=== PATIENT | male | born 1965 | race Caucasian/White ===

== ENCOUNTER 2017-10-23 20:44 | Inpatient (IN) | payer OTHER ==
[~2017-10-23] VITALS: Ht 152.4 cm; Wt 42.8 kg
[2017-10-23] MEDS ORDERED: Acetaminophen 500mg (ES) tab ORAL ONE (21:15)
[2017-10-23] MEDS ORDERED: cefTRIAXone 1 GM in NS 55 ML IVPB ONE (21:15)
--- NOTE | 2017-10-23 21:20 | Emergency Room Report ---
History of Present Illness General Chief Complaint: Fever Source: Caregiver Present Illness HPI Patient is brought in by caregiver at [facility] Patient has underlying Down syndrome Machine Feller reports that she has had the patient for the past one week and does not know much about the patient He was found to have a fever today and was brought to the emergency room Upon arrival the patient is hypotensive tachypneic, febrile and appears mottled on his lower extremities Patient himself does not provide much history This does limit the history of present illness There was no reports of vomiting There was report of diarrhea 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 Allergies: Coded Allergies: No Known Allergies (Unverified , 10/23/17) Patient History Limited by: medical condition Past Medical History: see triage record Pertinent Family History: unable to obtain Reviewed Nursing Documentation: PMH: Agreed; PSxH: Agreed Nursing Documentation-PMH Past Medical History: No History, Except For Hx Neurological Problems: Yes Review of Systems All Other Systems: limited - Other than the ones mentioned in the history of present illness all others are reviewed however they do stay limited due to the patient's mental status Physical Exam Vital Signs Date Time Temp Pulse Resp B/P (MAP) Pulse Ox O2 Delivery O2 Flow Rate FiO2 10/23/17 21:10 101.5 142 16 75/44 92 Room Air 101.5 Sp02 EP Interpretation: reviewed, abnormal - 92% is borderline low interpretation on 2 L nasal cannula patient saturating at 96% which is normal, General Appearance: moderate distress - Appears tachypneic and mottled Head: other - Microcephalic Eyes: bilateral eye PERRL ENT: dry mucus membranes - Severely dry oral mucosa Neck: full range of motion, supple Respiratory: crackles - In both lower lobes and patient is also tachypnic Cardiovascular #1: tachycardia Gastrointestinal: non tender, soft Musculoskeletal: normal inspection Neurologic: responsive - Patient follows minimal commands at baseline mental status. Skin: other - Mottled appearance diffusely including lower extremity, poor skin turgor Lymphatic: no adenopathy Procedures Critical Care Time Critical Care Time 70 minutes for multiple re-evaluations initial critical presentation Presentation consistent with septic shock requiring multiple consultants. Concern and risks for multiorgan failure Not including any procedural time Medical Decision Making Diagnostic Impression: Primary Impression: Severe sepsis Additional Impression: Rhabdomyolysis ER Course Patient presentation with fever and low blood pressure is concerning and consistent with severe sepsis The blood pressure has responded to IV fluids therefore patient does not appear to be in persistent septic shock IV hydration and antibiotics are initiated We have been unable to obtain urine from the patient as Gonzalez catheter was not able to be advanced Patient has some haziness any chest x-ray on the right lower lobe Other differentials such as bowel pathology or entertained Patient's abdomen however remains very soft on palpation with good bowel sounds Patient is admitted to the hospital for continued care in critical condition Inpatient imaging of CT will also be obtained At this time there are no signs of any hydronephrosis Patient had questionable mild colitis, there is some limitation as he were not able to provide IV contrast secondary to elevated creatinine has significant dehydration Labs Test 10/23/17 21:15 10/24/17 00:05 White Blood Count 9.6 K/UL (4.8-10.8) Red Blood Count 4.34 M/UL (4.70-6.10) Hemoglobin 14.1 G/DL (14.2-18.0) Hematocrit 41.0 % (42.0-52.0) Mean Corpuscular Volume 94 FL (80-99) Mean Corpuscular Hemoglobin 32.5 PG (27.0-31.0) Mean Corpuscular Hemoglobin Concent 34.4 G/DL (32.0-36.0) Red Cell Distribution Width 12.3 % (11.6-14.8) Platelet Count 131 K/UL (150-450) Mean Platelet Volume 9.4 FL (6.5-10.1) Neutrophils (%) (Auto) % (45.0-75.0) Lymphocytes (%) (Auto) % (20.0-45.0) Monocytes (%) (Auto) % (1.0-10.0) Eosinophils (%) (Auto) % (0.0-3.0) Basophils (%) (Auto) % (0.0-2.0) Differential Total Cells Counted 100 Neutrophils % (Manual) 78 % (45-75) Lymphocytes % (Manual) 11 % (20-45) Monocytes % (Manual) 6 % (1-10) Eosinophils % (Manual) 0 % (0-3) Basophils % (Manual) 0 % (0-2) Band Neutrophils 5 % (0-8) Platelet Estimate Decreased Platelet Morphology Normal Red Blood Cell Morphology Normal Sodium Level 154 MMOL/L (136-145) Potassium Level 2.8 MMOL/L (3.5-5.1) Chloride Level 119 MMOL/L (98-107) Carbon Dioxide Level 24 MMOL/L (21-32) Anion Gap 11 mmol/L (5-15) Blood Urea Nitrogen 31 mg/dL (7-18) Creatinine 2.3 MG/DL (0.55-1.30) Estimat Glomerular Filtration Rate 30.1 mL/min (>60) Glucose Level 171 MG/DL (74-106) Lactic Acid Level 2.50 mmol/L (0.4-2.0) 1.20 mmol/L (0.66-2.22) Calcium Level 8.7 MG/DL (8.5-10.1) Total Bilirubin 0.4 MG/DL (0.2-1.0) Aspartate Amino Transf (AST/SGOT) 375 U/L (15-37) Alanine Aminotransferase (ALT/SGPT) 238 U/L (12-78) Alkaline Phosphatase 84 U/L (46-116) Total Creatine Kinase > 26384 U/L (26-308) Creatine Kinase MB 30.1 NG/ML (0.0-3.6) Creatine Kinase MB Relative Index 0.0 Troponin I 0.183 ng/mL (0.000-0.056) Total Protein 7.1 G/DL (6.4-8.2) Albumin 2.5 G/DL (3.4-5.0) Globulin 4.6 g/dL Albumin/Globulin Ratio 0.5 (1.0-2.7) Lipase 146 U/L (73-393) EKG Diagnostic Results Rate: tachycardiac Rhythm: other ST Segments: no acute changes Rhythm Strip Diag. Results EP Interpretation: yes Rate: 110 Rhythm: no PVC's, no ectopy, other - Sinus tach Chest X-Ray Diagnostic Results Chest X-Ray Diagnostic Results : Chest X-Ray Ordered: Yes # of Views/Limited/Complete: 1 View Indication: Chest Pain EP Interpretation: Yes Interpretation: no effusion, no pneumothorax, other - Some haziness in the right ower lobe Impression: Other - Possible aspiration Electronically Signed by: Erika Rodriguez, DO CT/MRI/US Diagnostic Results CT/MRI/US Diagnostic Results : Impression CT abdomen pelvisIMPRESSION: Findingswhich mayreflect under distention versus developing colitis. Nonspecific bowel gas pattern with probable ileus. Absent and IVcontrast aswell as paucityof intra-abdominal fat limits evaluation. Pneumobiliawhich mayreflect prior instrumentation or surgery. Recommend clinical correlation Moderatelydistended bladder with wall thickening. Cystitis difficult to exclude. Complex cyst in the left kidney Tinyright pleural effusion and bibasilar airspace disease. Last Vital Signs Date Time Temp Pulse Resp B/P (MAP) Pulse Ox O2 Delivery O2 Flow Rate FiO2 10/23/17 21:10 101.5 142 16 75/44 92 Room Air 101.5 Status: improved Disposition: ADMITTED INPATIENT Condition: Critical Erika Rodriguez DO Oct 23, 2017 21:20
[2017-10-23 21:30] VITALS: BP 92/46
[2017-10-23 21:45] LABS: HEMOGLOBIN 14.1 G/DL (14.2-18.0); MEAN CORPUSCULAR VOLUME 94 FL (80-99); PLATELET COUNT 131 K/UL (150-450); RED BLOOD COUNT 4.34 M/UL (4.70-6.10); RED CELL DISTRIBUTION WIDTH 12.3 % (11.6-14.8); WHITE BLOOD COUNT 9.6 K/UL (4.8-10.8)
[2017-10-23] MEDS ORDERED: Acetaminophen 650 MG SUPP RECTAL ONE ×2 (21:52→22:00)
[2017-10-23 21:55] LABS: ANION GAP 11 mmol/L (5-15); BLOOD UREA NITROGEN 31 mg/dL (7-18); CALCIUM 8.7 MG/DL (8.5-10.1); CARBON DIOXIDE 24 MMOL/L (21-32); CHLORIDE 119 MMOL/L (98-107); CREATININE 2.3 MG/DL (0.55-1.30); POTASSIUM 2.8 MMOL/L (3.5-5.1); SODIUM 154 MMOL/L (136-145)
[2017-10-23 22:07] LABS: ALANINE AMINOTRANSFERASE 238 U/L (12-78); ALBUMIN 2.5 G/DL (3.4-5.0); ALBUMIN/GLOBULIN RATIO 0.5 (1.0-2.7); ALKALINE PHOSPHATASE 84 U/L (46-116); ASPARTATE AMINO TRANSFERASE 375 U/L (15-37); BILIRUBIN,TOTAL 0.4 MG/DL (0.2-1.0); CKMB 30.1 NG/ML (0.0-3.6); CREATINE KINASE > 10000 U/L (26-308)
[2017-10-23 22:30] VITALS: BP 96/42
[2017-10-23] MEDS ORDERED: COLACE100 MG ORAL (22:51)
[2017-10-23] MEDS ORDERED: ZOCOR20 M1 ORAL (22:51)
[2017-10-23] MEDS ORDERED: VITAMIN D1000 UNI1 ORAL (22:51)
[2017-10-23 23:11] VITALS: BP 85/51
[2017-10-24] VITALS (24 sets, daily range): BP systolic 73–97; BP diastolic 39–62
[2017-10-24] MEDS ORDERED: Docusate 100mg cap ORAL PRN (02:30)
[2017-10-24] MEDS ORDERED: Vancomycin 750mg/NS 250ml IVPB SCH (04:00)
[2017-10-24] MEDS ORDERED: Cefepime 1gm vial ONE (04:27)
[2017-10-24] MEDS ORDERED: Cefepime 500mg in D5W 55ml IVPB SCH (05:00)
[2017-10-24 06:12] LABS: HEMATOCRIT 36.8 % (42.0-52.0); HEMOGLOBIN 12.4 G/DL (14.2-18.0); MEAN CORPUSCULAR VOLUME 99 FL (80-99); PLATELET COUNT 92 K/UL (150-450); RED BLOOD COUNT 3.72 M/UL (4.70-6.10); RED CELL DISTRIBUTION WIDTH 12.8 % (11.6-14.8); WHITE BLOOD COUNT 15.6 K/UL (4.8-10.8)
[2017-10-24 06:36] LABS: ALANINE AMINOTRANSFERASE 200 U/L (12-78); ALBUMIN 1.7 G/DL (3.4-5.0); ALBUMIN/GLOBULIN RATIO 0.5 (1.0-2.7); ALKALINE PHOSPHATASE 57 U/L (46-116); ANION GAP 12 mmol/L (5-15); ASPARTATE AMINO TRANSFERASE 311 U/L (15-37); BILIRUBIN,TOTAL 0.3 MG/DL (0.2-1.0); BLOOD UREA NITROGEN 28 mg/dL (7-18); CALCIUM 6.7 MG/DL (8.5-10.1); CARBON DIOXIDE 21 MMOL/L (21-32); CHLORIDE 123 MMOL/L (98-107); POTASSIUM 3.6 MMOL/L (3.5-5.1); SODIUM 156 MMOL/L (136-145)
[2017-10-24] MEDS ORDERED: Sodium Chloride 500ML 1,000 ML IV ONE (08:30)
[2017-10-24] MEDS ORDERED: Cefepime HCl 1 GM in D5W 55 ML IVPB SCH (09:00)
[2017-10-24] MEDS ORDERED: Heparin 5000 units/ml inj SUBQ SCH (09:00)
[2017-10-24] MEDS: Vitamin D 1000 IU Tab ORAL SCH (09:00)
--- NOTE | 2017-10-24 11:41 | Diagnostic Imaging Report ---
Indication: Chest pain Comparison: None A single view chest radiograph was obtained. Findings: Reticular markings are mildly prominent. The heart is mildly enlarged. Bones are osteopenic. IMPRESSION: Interstitial edema may be present. Correlate clinically
--- NOTE | 2017-10-24 18:17 | Consultation ---
DATE OF CONSULTATION: 10/24/2017 CONSULTING PHYSICIAN: Aiden Sidhu M.D. REFERRING PHYSICIAN: Guero Noel M.D. REASON FOR CONSULTATION: 1. Hypernatremia. 2. Acute kidney injury. HISTORY OF PRESENT ILLNESS: The patient is a 52-year-old gentleman with Down syndrome, who was transferred by the caregiver from the [facility] for further evaluation and management of hypotension, increased heart rate, febrile, and not breathing well. Noted to have a creatinine of 2.3, decreased urinary output, and blood pressure remains in the low systolic 80s. CT of the abdomen and pelvis were conducted. Results are pending, however, noted to have a distended bladder with no urinary output and was having difficulty passing Gonzalez catheter. PAST MEDICAL HISTORY: 1. Down syndrome. 2. Hyperlipidemia. 3. Constipation. 4. Vitamin D deficiency. PAST SURGICAL HISTORY: Unknown. ALLERGIES: No known drug allergies. FAMILY HISTORY: Noncontributory. REVIEW OF SYSTEMS: Cannot obtain as the patient is currently on noninvasive positive pressure ventilation. PHYSICAL EXAMINATION: VITAL SIGNS: Blood pressure 83/60, respiratory rate 26, pulse 114, temperature 99.9, and 100% on BiPAP FiO2 of 40%. GENERAL: The patient is awake, agitated, not otherwise in distress. HEENT: Extraocular muscles intact. No lymphadenopathy. Oropharyngeal mucosa clear and dry. CARDIOVASCULAR: S1 and S2. No rubs or gallops. PULMONARY: Mild upper rhonchi. Fair air movement in all lung schaefer. ABDOMEN: Nondistended and nontender. EXTREMITY: No edema noted. LABORATORY DATA: Labs dated 10/24/2017, sodium 156, potassium 3.6, creatinine 2, BUN 28, and bicarb 21. AST and ALT are 311 and 200 respectively. Albumin 1.7. Hemoglobin 12.4, white cell count 15.6, and platelet count 92,000. ASSESSMENT AND PLAN: 1. Hypernatremia secondary to approximately 4 to 5 liters of free water deficit. At this time, okay to continue with half-normal saline. After this, would recommend changing to hypotonic D5W. 2. Acute kidney injury. Secondary to multifactorial acute tubular necrosis from hypotension and urinary retention. We will consult Urology for Gonzalez catheter placement as unable to pass Gonzalez and urinary bladder noted to be distended. 3. Sepsis with hypotension. Continue broad-spectrum antibiotics. 4. Down syndrome. 5. Respiratory insufficiency. Continue BiPAP management per Dr. Noel. I would take this opportunity to thank Dr. Noel. Aiden Sidhu MD DR: ADA JOB#: [id number] CC:
--- NOTE | 2017-10-24 18:32 | History and Physical Report ---
DATE OF ADMISSION: 10/23/2017 REASON FOR ADMISSION: Sepsis, acute respiratory failure. HISTORY: This is a 52-year-old male brought in by caregiver. The patient is a board and care patient. The patient has Down syndrome. The patient was noted to be more altered and noted to have fever. The patient in the emergency room noted to be hypotensive and tachypneic, was noted to be acidotic, and now admitted to ICU. The patient is unable to give much in the way of history. Currently, blood pressures have been labile. PAST MEDICAL HISTORY: Notable for Down syndrome. Other medical problems are unclear. MEDICATIONS: Reviewed and are minimal. PHYSICAL EXAMINATION: GENERAL: An ill-appearing male with stunted growth. VITAL SIGNS: Reviewed. Heart rate 105. The patient is currently on BiPAP. Temperature 99.9, blood pressure 83/60. T-max is 104. HEENT: Negative. LUNGS: Fairly clear. CARDIAC: Tachycardic. ABDOMEN: Soft. No distention. EXTREMITIES: No cyanosis or clubbing. SKIN: Skin turgor is reduced. LABORATORY DATA: Reviewed. White count 15.6 with left shift. Chemistries noted. Sodium 156, BUN 28, creatinine 2. Albumin is only 1.7. Arterial blood gases, pH 7.25, pCO2 of 47, pO2 of 81. IMPRESSION: 1. Possible sepsis. 2. Acute on chronic encephalopathy. 3. Hypernatremia. 4. Acute renal failure. 5. Severe protein-calorie malnutrition. 6. Leukocytosis. 7. Anemia. 8. Down syndrome. RECOMMENDATIONS: Supportive care. IV hydration. monitor fluid. Renal and ID evaluation. Empiric antibiotics. DVT prophylaxis on hold with heparin due to noted thrombocytopenia. We will obtain venous ultrasound and place SCDs. Maintain in the ICU. We will follow clinically and monitor laboratories closely. Gueor Noel M.D. DR: Stefania JOB#: [id number] CC: DORA
--- NOTE | 2017-10-24 19:02 | Consultation ---
DATE OF CONSULTATION: 10/24/2017 INFECTIOUS DISEASES CONSULTATION CONSULTING PHYSICIAN: Viktoria Winkler M.D. REFERRING PHYSICIAN: Guero Noel M.D. REASON FOR CONSULTATION: Fever. HISTORY OF PRESENTING ILLNESS: This is a 52-year-old gentleman with history of Down syndrome, who was brought in because he had fevers. He is currently on a BiPAP, admitted to the ICU and an Infectious Diseases consultation has been obtained for antibiotics. PAST MEDICAL HISTORY: History of Down syndrome. SOCIAL HISTORY: Unknown. FAMILY HISTORY: Unknown. REVIEW OF SYSTEMS: Unable to obtain currently. MEDICATIONS: As an inpatient, the patient is on atorvastatin, vitamin D, cefepime, Docusate, IV vancomycin and Tylenol. ALLERGIES: No known drug allergies. PHYSICAL EXAMINATION: VITAL SIGNS: Temperature of 99.9 degrees, T-max of 103.3 degrees, pulse of 107, respiratory rate 23, blood pressure 83/60 and O2 saturation of 100%. HEENT: Pupils equally reactive to light and accommodation. Mouth appears clean without thrush. The patient is on BiPAP. NECK: Supple. No adenopathy. No JVD. CARDIOVASCULAR: Regular rate and rhythm. No murmurs. LUNGS: Clear to auscultation bilaterally. No crackles. No wheezes. ABDOMEN: Soft and nontender. No organomegaly. EXTREMITIES: No cyanosis, no clubbing, no edema. LABORATORY AND DIAGNOSTIC DATA: White count 15.6, hemoglobin 12.4, hematocrit 36.8, MCV 99 and platelet count of 92 with neutrophils of 84%. Sodium 156, potassium 3.6, chloride 123, bicarbonate 21, BUN 28, creatinine 2 down from 2.3, glucose 126 and calcium of 6.7. AST 311, ALT 200 and alkaline phosphatase 57. Total protein 5.4. Albumin 1.7. Lipase of 146. Chest x-ray showing interstitial edema. Blood cultures are pending. ASSESSMENT: 1. This is a 52-year-old gentleman with history of Down syndrome who comes in with fevers, would be concerned regarding a urinary tract infection or a pneumonia as a possibility. 2. Respiratory failure. 3. Elevated liver function tests. 4. Renal failure is improving. 5. Increased leukocytosis. PLAN: 1. Discontinue IV vancomycin for now. 2. Discontinue cefepime. 3. We will start the patient on Zosyn. 4. We will order urine cultures and sputum cultures. 5. We will follow up cultures and adjust antibiotics accordingly. I would like to thank, Dr. Noel, for this consultation. Viktoria Winkler M.D. DR: DAMION JOB#: [id number] CC: Guero Noel M.D.; Fax#: [phone]
--- NOTE | 2017-10-24 20:06 | Operative Note - PDOC ---
Operative Note Operative Note Date of Operation/Procedure: Oct 24, 2017 Pre-op Diagnosis: sepsis, hypotension, intensive care / critical care requiring pressors Procedure: left internal jugular central venous catheter insertion Post-op Diagnosis: same as pre-op Surgeon: arianne Anesthesia: local Specimen: none Complications: none Condition: unstable Fluids: n/a Estimated Blood Loss: minimal Drains: none Implant(s) used?: No Indications for Procedure 52 year old male currently in intensive care unit in critical condition who is septic with hypotension, tachycardia, fevers. Requires pressors and will need central venous access for meds, pressors, fluids. unfortunately patient unable to consent and cannot get in contact with conservator given time of day. emergent need for line for life saving measure. two physician consent obtained. procedure performed at bedside. Description of Procedure patient made comfortable at bedside in the intensive care unit. placed in supine position with Trendelenburg. sterile measures taken, left neck prepped and draped in standard surgical fashion. ultrasound used to identify left internal jugular vein. local anesthetic 1% lidocaine infiltrated in proposed skin entry site. under ultrasound guidance the left internal jugular vein was cannulated with first pass. guide wire was passed over needle and needle removed. small skin incision made around guide wire with #11 scalpel. dilator used to dilate. triple lumen central venous catheter placed over wire without resistance. wire removed and discarded. line sutured in two placed using provided silk suture. dressings applied. all three ports flushed and aspirated venous blood without difficulty. patient tolerated procedure well. stat cxr ordered for positioning. Mitchell Busby Oct 24, 2017 20:06
[2017-10-24] MEDS ORDERED: Lidocaine 1% MPF 10mg/ml 5ml INJ PRN (20:15)
[2017-10-24] MEDS ORDERED: Atorvastatin 20mg tab ORAL SCH (21:00)
[2017-10-24] MEDS ORDERED: Dyna-Hex 2% Top Sol 2oz TOPIC SCH (21:30)
[2017-10-25] VITALS (42 sets, daily range): BP systolic 87–118; BP diastolic 1–87
[2017-10-25 08:38] LABS: HEMATOCRIT 37.7 % (42.0-52.0); HEMOGLOBIN 12.5 G/DL (14.2-18.0); MEAN CORPUSCULAR VOLUME 98 FL (80-99); PLATELET COUNT 89 K/UL (150-450); RED BLOOD COUNT 3.85 M/UL (4.70-6.10); RED CELL DISTRIBUTION WIDTH 13.3 % (11.6-14.8); WHITE BLOOD COUNT 18.4 K/UL (4.8-10.8)
--- NOTE | 2017-10-25 08:46 | Nephrology Progress Note ---
Assessment/Plan Assessment/Plan 1. 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 DC Lipitor 3. Resp FL- vent 4. Urinary Retention- 1300 ml UOP with tate 5. Hypotension/Sepsis- Abx, Norepi and IVF's Subjective Date patient seen: Oct 25, 2017 Time patient seen: 08:37 ROS Limited/Unobtainable: Yes Allergies: Coded Allergies: No Known Allergies (Unverified , 10/23/17) All Systems: reviewed and negative except above Subjective Patient on BiPAP Objective Last 24 Hour Vital Signs Date Time Temp Pulse Resp B/P (MAP) Pulse Ox O2 Delivery O2 Flow Rate FiO2 10/25/17 08:00 Venturi Mask 15.0 10/25/17 07:00 104/59 10/25/17 07:00 96 21 107/57 (74) 99 10/25/17 06:30 98/63 10/25/17 06:00 98/63 10/25/17 06:00 94 21 107/61 (76) 99 10/25/17 05:10 85 23 100 Full Face 35 10/25/17 05:00 99/52 10/25/17 05:00 99 21 105/57 (73) 100 10/25/17 04:00 101/57 10/25/17 04:00 87 10/25/17 04:00 Venturi Mask 15.0 10/25/17 04:00 98.4 102 21 102/56 (71) 100 98.4 10/25/17 03:15 98 20 100 Full Face 40 10/25/17 03:00 103 21 99/56 (70) 100 10/25/17 02:30 99/55 10/25/17 02:00 111 26 100/53 (69) 100 10/25/17 02:00 102/54 10/25/17 01:00 100 24 95/58 (70) 100 10/25/17 01:00 105/53 10/25/17 00:42 108 24 99 Full Face 40 10/25/17 00:00 40 10/25/17 00:00 87 10/25/17 00:00 98.3 104 20 91/51 (64) 100 98.3 10/25/17 00:00 Venturi Mask 15.0 10/25/17 00:00 98/80 10/24/17 23:06 108 16 100 Full Face 40 10/24/17 23:00 102/66 10/24/17 23:00 91 18 86/47 (60) 100 10/24/17 22:00 96 27 97/54 (68) 97 10/24/17 22:00 97/54 10/24/17 21:40 103 20 99 Full Face 40 10/24/17 20:57 115 30 92/50 (64) 97 10/24/17 20:57 92/50 10/24/17 20:00 98.0 116 35 83/49 (60) 100 98.0 10/24/17 20:00 Venturi Mask 15.0 10/24/17 20:00 114 10/24/17 19:00 112 15 93/50 (64) 96 10/24/17 18:57 97 Nasal Cannula 3.0 32 10/24/17 18:57 Nasal Cannula 3.0 32 10/24/17 18:00 112 15 90/55 (67) 96 10/24/17 17:00 112 15 78/55 (63) 96 10/24/17 16:00 117 10/24/17 16:00 112 15 83/52 (62) 96 10/24/17 16:00 Venturi Mask 15.0 10/24/17 15:00 112 15 75/53 (60) 96 10/24/17 14:00 99.1 106 15 73/54 (60) 96 99.1 10/24/17 13:00 110 15 84/51 (62) 96 10/24/17 12:34 113 17 100 Full Face 40 10/24/17 12:00 107 15 78/48 (58) 96 10/24/17 12:00 104 10/24/17 12:00 Venturi Mask 15.0 10/24/17 11:00 107 15 85/55 (65) 96 10/24/17 10:55 107 23 100 Facial 40 10/24/17 10:00 107 15 85/55 (65) 96 10/24/17 09:00 107 15 89/57 (68) 96 10/24/17 09:00 114 23 100 Facial 40 Intake and Output 10/24/17 10/25/17 19:00 07:00 Intake Total 1650 ml 2143.75 ml Output Total 1300 ml 970 ml Balance 350 ml 1173.75 ml Intake Oral 50 ml IV Total 1600 ml 2143.75 ml Output Urine Total 1300 ml 970 ml Stool Total 0 ml Laboratory Tests 10/24/17 14:00: Arterial Blood pH 7.320L, Arterial Blood Partial Pressure CO2 36.7, Arterial Blood Partial Pressure O2 171.3H, Arterial Blood HCO3 18.8L, Arterial Blood Oxygen Saturation 98.7H, Arterial Blood Base Excess -6.5, Srinath Test Positive 10/25/17 05:40: Random Vancomycin Level 4.3 10/25/17 08:15: White Blood Count [Pending], Red Blood Count [Pending], Hemoglobin [Pending], Hematocrit [Pending], Mean Corpuscular Volume [Pending], Mean Corpuscular Hemoglobin [Pending], Mean Corpuscular Hemoglobin Concent [Pending], Red Cell Distribution Width [Pending], Platelet Count [Pending], Mean Platelet Volume [ Pending], Neutrophils (%) (Auto) [Pending], Lymphocytes (%) (Auto) [Pending], Monocytes (%) (Auto) [Pending], Eosinophils (%) (Auto) [Pending], Basophils (%) (Auto) [Pending], Sodium Level [Pending], Potassium Level [Pending], Chloride Level [Pending], Carbon Dioxide Level [Pending], Blood Urea Nitrogen [Pending], Creatinine [Pending], Estimat Glomerular Filtration Rate [Pending], Glucose Level [Pending], Calcium Level [Pending], Total Bilirubin [Pending], Aspartate Amino Transf (AST/SGOT) [Pending], Alanine Aminotransferase (ALT/SGPT) [Pending] , Alkaline Phosphatase [Pending], Total Protein [Pending], Albumin [Pending], Globulin [Pending] Height (Feet): 5 Height (Inches): 1.00 Weight (Pounds): 110 General Appearance: no apparent distress, alert EENT: PERRL/EOMI Neck: non-tender, normal alignment Cardiovascular: normal rate, regular rhythm Respiratory/Chest: chest wall non-tender, lungs clear Abdomen: normal bowel sounds, non tender, soft Edema: no edema noted Arm (L), no edema noted Arm (R), no edema noted Leg (L), no edema noted Leg (R), no edema noted Pedal (L), no edema noted Pedal (R), no edema noted Generalized Aiden Sidhu M.D. Oct 25, 2017 08:46
[2017-10-25] MEDS: Vitamin D 1000 IU Tab ORAL SCH (09:00)
[2017-10-25] MEDS ORDERED: Vancomycin 1gm/D5W 275ml IVPB ONE ×2 (09:00)
[2017-10-25 09:03] LABS: ALANINE AMINOTRANSFERASE 187 U/L (12-78); ALBUMIN 1.6 G/DL (3.4-5.0); ALBUMIN/GLOBULIN RATIO 0.5 (1.0-2.7); ALKALINE PHOSPHATASE 59 U/L (46-116); ANION GAP 6 mmol/L (5-15); ASPARTATE AMINO TRANSFERASE 263 U/L (15-37); BILIRUBIN,TOTAL 0.5 MG/DL (0.2-1.0); BLOOD UREA NITROGEN 25 mg/dL (7-18); CALCIUM 6.7 MG/DL (8.5-10.1); CARBON DIOXIDE 23 MMOL/L (21-32); CHLORIDE 116 MMOL/L (98-107); CREATININE 1.5 MG/DL (0.55-1.30); POTASSIUM 3.7 MMOL/L (3.5-5.1); SODIUM 145 MMOL/L (136-145)
--- NOTE | 2017-10-25 14:07 | General Progress Note ---
Assessment/Plan Assessment/Plan IMPRESSION: 1. Possible sepsis. 2. Acute on chronic encephalopathy. 3. Hypernatremia. 4. Acute renal failure. 5. Severe protein-calorie malnutrition. 6. Leukocytosis. 7. Anemia. 8. Down syndrome. 9. rhabdo PLAN iv hydration monitor renal function and CK taper pressors antibiotics check culture monitor ABG keep npo medications/laboratory data/nursing notes/ICU care reviewed in detail note reviewed and edited care discussed with RN and RT ICU time spent 40 minutes Subjective Allergies: Coded Allergies: No Known Allergies (Unverified , 10/23/17) Subjective better more alert on pressors central line needed due to hypotension Objective Last 24 Hour Vital Signs Date Time Temp Pulse Resp B/P (MAP) Pulse Ox O2 Delivery O2 Flow Rate FiO2 10/25/17 14:02 111/62 10/25/17 13:00 88 20 110/60 (77) 98 10/25/17 12:30 85 24 108/62 (77) 98 10/25/17 12:00 Venturi Mask 15.0 10/25/17 12:00 98.8 95 27 105/58 (74) 99 98.8 10/25/17 12:00 95 10/25/17 11:30 92 25 104/58 (73) 98 10/25/17 11:00 97 23 105/66 (79) 99 10/25/17 10:30 81 21 101/55 (70) 99 10/25/17 10:00 93 27 108/59 (75) 99 10/25/17 09:30 92 26 100/65 (77) 99 10/25/17 09:14 99 23 100 Full Face 35 10/25/17 09:00 96 27 104/58 (73) 99 10/25/17 08:30 96 23 104/54 (71) 100 10/25/17 08:00 88 10/25/17 08:00 Venturi Mask 15.0 10/25/17 08:00 98.6 98 24 105/60 (75) 99 98.6 10/25/17 07:54 Bi-pap 40 10/25/17 07:30 99 25 107/55 (72) 99 10/25/17 07:00 104/59 10/25/17 07:00 96 21 107/57 (74) 99 10/25/17 06:50 102 35 100 Full Face 35 10/25/17 06:49 100 Bi-pap 10/25/17 06:30 98/63 10/25/17 06:00 98/63 10/25/17 06:00 94 21 107/61 (76) 99 10/25/17 05:10 85 23 100 Full Face 35 10/25/17 05:00 99/52 10/25/17 05:00 99 21 105/57 (73) 100 10/25/17 04:00 101/57 10/25/17 04:00 87 10/25/17 04:00 Venturi Mask 15.0 10/25/17 04:00 98.4 102 21 102/56 (71) 100 98.4 10/25/17 03:15 98 20 100 Full Face 40 10/25/17 03:00 103 21 99/56 (70) 100 10/25/17 02:30 99/55 10/25/17 02:00 111 26 100/53 (69) 100 10/25/17 02:00 102/54 10/25/17 01:00 100 24 95/58 (70) 100 10/25/17 01:00 105/53 10/25/17 00:42 108 24 99 Full Face 40 10/25/17 00:00 40 10/25/17 00:00 87 10/25/17 00:00 98.3 104 20 91/51 (64) 100 98.3 10/25/17 00:00 Venturi Mask 15.0 10/25/17 00:00 98/80 10/24/17 23:06 108 16 100 Full Face 40 10/24/17 23:00 102/66 10/24/17 23:00 91 18 86/47 (60) 100 10/24/17 22:00 96 27 97/54 (68) 97 10/24/17 22:00 97/54 10/24/17 21:40 103 20 99 Full Face 40 10/24/17 20:57 115 30 92/50 (64) 97 10/24/17 20:57 92/50 10/24/17 20:00 98.0 116 35 83/49 (60) 100 98.0 10/24/17 20:00 Venturi Mask 15.0 10/24/17 20:00 114 10/24/17 19:00 112 15 93/50 (64) 96 10/24/17 18:57 97 Nasal Cannula 3.0 32 10/24/17 18:57 Nasal Cannula 3.0 32 10/24/17 18:00 112 15 90/55 (67) 96 10/24/17 17:00 112 15 78/55 (63) 96 10/24/17 16:00 117 10/24/17 16:00 112 15 83/52 (62) 96 10/24/17 16:00 Venturi Mask 15.0 10/24/17 15:00 112 15 75/53 (60) 96 Intake and Output 10/24/17 10/25/17 19:00 07:00 Intake Total 1650 ml 2143.75 ml Output Total 1300 ml 970 ml Balance 350 ml 1173.75 ml Intake Oral 50 ml IV Total 1600 ml 2143.75 ml Output Urine Total 1300 ml 970 ml Stool Total 0 ml Laboratory Tests 10/25/17 05:40: Random Vancomycin Level 4.3 10/25/17 08:15: White Blood Count 18.4H, Red Blood Count 3.85L, Hemoglobin 12.5L, Hematocrit 37.7L, Mean Corpuscular Volume 98, Mean Corpuscular Hemoglobin 32.4H, Mean Corpuscular Hemoglobin Concent 33.1, Red Cell Distribution Width 13.3, Platelet Count 89L, Mean Platelet Volume 9.8, Neutrophils (%) (Auto) , Lymphocytes (%) ( Auto) , Monocytes (%) (Auto) , Eosinophils (%) (Auto) , Basophils (%) (Auto) , Differential Total Cells Counted 100, Neutrophils % (Manual) 86H, Lymphocytes % (Manual) 7L, Monocytes % (Manual) 3, Eosinophils % (Manual) 0, Basophils % ( Manual) 0, Band Neutrophils 4, Platelet Estimate DecreasedL, Platelet Morphology Normal, Macrocytosis 1+, Sodium Level 145, Potassium Level 3.7, Chloride Level 116H, Carbon Dioxide Level 23, Anion Gap 6, Blood Urea Nitrogen 25H, Creatinine 1.5H, Estimat Glomerular Filtration Rate 49.3, Glucose Level 162H, Calcium Level 6.7L, Total Bilirubin 0.5, Aspartate Amino Transf (AST/SGOT ) 263H, Alanine Aminotransferase (ALT/SGPT) 187H, Alkaline Phosphatase 59, Total Protein 5.1L, Albumin 1.6L, Globulin 3.5, Albumin/Globulin Ratio 0.5L 10/25/17 10:20: Arterial Blood pH 7.340L, Arterial Blood Partial Pressure CO2 38.9, Arterial Blood Partial Pressure O2 146.4H, Arterial Blood HCO3 20.8L, Arterial Blood Oxygen Saturation 98.5H, Arterial Blood Base Excess -4.4, Srinath Test Positive Height (Feet): 5 Height (Inches): 1.00 Weight (Pounds): 110 Objective WDWN NAD and more alert clear breath sounds bilaterally without rhonchi or wheeze [id number] without MRG NABS nontender no HSM no CCE short stature very weak Guero Noel MD Oct 25, 2017 14:07
--- NOTE | 2017-10-25 14:27 | Infectious Diseases Prog Note ---
Assessment/Plan Assessment/Plan A; Sepsis/Septic shock Gram negative sepsis Acute renal failure Rhabdomyolysis Acidosis Elevated transaminase O; Continue Zosyn Abdominal US Subjective ROS Limited/Unobtainable: Yes Neurologic: Reports: confusion, other - on restraint Allergies: Coded Allergies: No Known Allergies (Unverified , 10/23/17) Objective Vital Signs Last 24 Hour Vital Signs Date Time Temp Pulse Resp B/P (MAP) Pulse Ox O2 Delivery O2 Flow Rate FiO2 10/25/17 14:02 111/62 10/25/17 13:00 88 20 110/60 (77) 98 10/25/17 12:30 85 24 108/62 (77) 98 10/25/17 12:00 Venturi Mask 15.0 10/25/17 12:00 98.8 95 27 105/58 (74) 99 98.8 10/25/17 12:00 95 10/25/17 11:30 92 25 104/58 (73) 98 10/25/17 11:00 97 23 105/66 (79) 99 10/25/17 10:30 81 21 101/55 (70) 99 10/25/17 10:00 93 27 108/59 (75) 99 10/25/17 09:30 92 26 100/65 (77) 99 10/25/17 09:14 99 23 100 Full Face 35 10/25/17 09:00 96 27 104/58 (73) 99 10/25/17 08:30 96 23 104/54 (71) 100 10/25/17 08:00 88 10/25/17 08:00 Venturi Mask 15.0 10/25/17 08:00 98.6 98 24 105/60 (75) 99 98.6 10/25/17 07:54 Bi-pap 40 10/25/17 07:30 99 25 107/55 (72) 99 10/25/17 07:00 104/59 10/25/17 07:00 96 21 107/57 (74) 99 10/25/17 06:50 102 35 100 Full Face 35 10/25/17 06:49 100 Bi-pap 10/25/17 06:30 98/63 10/25/17 06:00 98/63 10/25/17 06:00 94 21 107/61 (76) 99 10/25/17 05:10 85 23 100 Full Face 35 10/25/17 05:00 99/52 10/25/17 05:00 99 21 105/57 (73) 100 10/25/17 04:00 101/57 10/25/17 04:00 87 10/25/17 04:00 Venturi Mask 15.0 10/25/17 04:00 98.4 102 21 102/56 (71) 100 98.4 10/25/17 03:15 98 20 100 Full Face 40 10/25/17 03:00 103 21 99/56 (70) 100 10/25/17 02:30 99/55 10/25/17 02:00 111 26 100/53 (69) 100 10/25/17 02:00 102/54 10/25/17 01:00 100 24 95/58 (70) 100 10/25/17 01:00 105/53 10/25/17 00:42 108 24 99 Full Face 40 10/25/17 00:00 40 10/25/17 00:00 87 10/25/17 00:00 98.3 104 20 91/51 (64) 100 98.3 10/25/17 00:00 Venturi Mask 15.0 10/25/17 00:00 98/80 10/24/17 23:06 108 16 100 Full Face 40 10/24/17 23:00 102/66 10/24/17 23:00 91 18 86/47 (60) 100 10/24/17 22:00 96 27 97/54 (68) 97 10/24/17 22:00 97/54 10/24/17 21:40 103 20 99 Full Face 40 10/24/17 20:57 115 30 92/50 (64) 97 10/24/17 20:57 92/50 10/24/17 20:00 98.0 116 35 83/49 (60) 100 98.0 10/24/17 20:00 Venturi Mask 15.0 10/24/17 20:00 114 10/24/17 19:00 112 15 93/50 (64) 96 10/24/17 18:57 97 Nasal Cannula 3.0 32 10/24/17 18:57 Nasal Cannula 3.0 32 10/24/17 18:00 112 15 90/55 (67) 96 10/24/17 17:00 112 15 78/55 (63) 96 10/24/17 16:00 117 10/24/17 16:00 112 15 83/52 (62) 96 10/24/17 16:00 Venturi Mask 15.0 10/24/17 15:00 112 15 75/53 (60) 96 Height (Feet): 5 Height (Inches): 1.00 Weight (Pounds): 110 HEENT: other - dry mouth & lips Respiratory/Chest: lungs clear, other - O2 by nasal cannula Cardiovascular: normal rate, other - RIJ central line Abdomen: soft, non tender Genitourinary: other - Gonzalez catheter Extremities: no edema Skin: no rash Neurologic/Psychiatric: aphasia Microbiology Date/Time Source Procedure Growth Status 10/23/17 21:30 Blood Blood Culture - Preliminary Resulted 10/23/17 21:15 Blood Blood Culture - Preliminary Resulted 10/24/17 17:12 Urine,Clean Catch Urine Culture - Preliminary NO GROWTH Resulted 10/23/17 22:20 Rectum Received Laboratory Tests Test 10/25/17 05:40 10/25/17 08:15 10/25/17 10:20 Random Vancomycin Level 4.3 ug/mL White Blood Count 18.4 K/UL (4.8-10.8) H Red Blood Count 3.85 M/UL (4.70-6.10) L Hemoglobin 12.5 G/DL (14.2-18.0) L Hematocrit 37.7 % (42.0-52.0) L Mean Corpuscular Volume 98 FL (80-99) Mean Corpuscular Hemoglobin 32.4 PG (27.0-31.0) H Mean Corpuscular Hemoglobin Concent 33.1 G/DL (32.0-36.0) Red Cell Distribution Width 13.3 % (11.6-14.8) Platelet Count 89 K/UL (150-450) L Mean Platelet Volume 9.8 FL (6.5-10.1) Neutrophils (%) (Auto) % (45.0-75.0) Lymphocytes (%) (Auto) % (20.0-45.0) Monocytes (%) (Auto) % (1.0-10.0) Eosinophils (%) (Auto) % (0.0-3.0) Basophils (%) (Auto) % (0.0-2.0) Differential Total Cells Counted 100 Neutrophils % (Manual) 86 % (45-75) H Lymphocytes % (Manual) 7 % (20-45) L Monocytes % (Manual) 3 % (1-10) Eosinophils % (Manual) 0 % (0-3) Basophils % (Manual) 0 % (0-2) Band Neutrophils 4 % (0-8) Platelet Estimate Decreased L Platelet Morphology Normal Macrocytosis 1+ Sodium Level 145 MMOL/L (136-145) Potassium Level 3.7 MMOL/L (3.5-5.1) Chloride Level 116 MMOL/L (98-107) H Carbon Dioxide Level 23 MMOL/L (21-32) Anion Gap 6 mmol/L (5-15) Blood Urea Nitrogen 25 mg/dL (7-18) H Creatinine 1.5 MG/DL (0.55-1.30) H Estimat Glomerular Filtration Rate 49.3 mL/min (>60) Glucose Level 162 MG/DL (74-106) H Calcium Level 6.7 MG/DL (8.5-10.1) L Total Bilirubin 0.5 MG/DL (0.2-1.0) Aspartate Amino Transf (AST/SGOT) 263 U/L (15-37) H Alanine Aminotransferase (ALT/SGPT) 187 U/L (12-78) H Alkaline Phosphatase 59 U/L (46-116) Total Protein 5.1 G/DL (6.4-8.2) L Albumin 1.6 G/DL (3.4-5.0) L Globulin 3.5 g/dL Albumin/Globulin Ratio 0.5 (1.0-2.7) L Arterial Blood pH 7.340 (7.350-7.450) Arterial Blood Partial Pressure CO2 38.9 mmHg (35.0-45.0) Arterial Blood Partial Pressure O2 146.4 mmHg (75.0-100.0) H Arterial Blood HCO3 20.8 mmol/L (22.0-26.0) L Arterial Blood Oxygen Saturation 98.5 % (92.0-98.0) H Arterial Blood Base Excess -4.4 Srinath Test Positive Current Medications Medications (Trade) Dose Ordered Sig/Merlene Route PRN Reason Start Time Stop Time Status Last Admin Dose Admin Acetaminophen (Tylenol) 650 mg Q4H PRN ORAL Mild Pain/Temp > 100.5 10/24/17 02:15 11/23/17 02:14 Chlorhexidine Gluconate (Chandni-Hex 2%) 1 applic DAILY@2000 TOPIC 10/25/17 20:00 11/24/17 19:59 Docusate Sodium (Colace) 100 mg DAILY PRN ORAL Constipation 10/24/17 02:30 11/23/17 02:29 Lidocaine (Xylocaine 1% MPF 5ml) 10 ml ONCE PRN INJ for central line placement 10/24/17 20:15 10/26/17 20:14 Norepinephrine Bitartrate 4 mg/ Dextrose 250 ml @ 56.25 mls/ hr Q24H IV 10/25/17 02:30 11/24/17 02:14 10/25/17 14:02 Piperacillin Sod/ Tazobactam Sod 3.375 gm/Dextrose 100 ml @ 25 mls/hr EVERY 8 HOURS IV 10/24/17 15:00 10/29/17 14:59 10/25/17 05:31 Sodium Chloride 1,000 ml @ 150 mls/hr Q6H40M IV 10/25/17 08:45 11/24/17 08:44 10/25/17 08:54 Vitamin D (Vitamin D) 1,000 intlu DAILY ORAL 10/24/17 09:00 11/23/17 08:59 Ryan Fritz MD Oct 25, 2017 14:27
[2017-10-25] MEDS ORDERED: NS 275ml ONE (14:29)
[2017-10-25] MEDS ORDERED: Tubing IV Secondary IV ONE (14:29)
[2017-10-25] MEDS ORDERED: 1/2 NS 1000ml IV ONE (14:29)
--- NOTE | 2017-10-25 15:24 | Diagnostic Imaging Report ---
Indication: Central line placement consolidation. Technique: XRAY Chest 1v Comparison: 10/23/2017 Findings: Heart size and mediastinal contours are stable. There is interval placement of a left transjugular approach central venous catheter. Tip projects in the expected region of the confluence of the left innominate vein and superior vena cava. No pneumothorax. There is increased haziness the pulmonary vascularity, reflective of a degree of mild interstitial edema/fluid overload. Osseous structures stable IMPRESSION: Left transjugular approach central venous catheter with the tip the region of the confluence of the left innominate vein and superior vena cava. No pneumothorax. Interval increased haziness of the pulmonary vascularity signaling mild interstitial edema/fluid overload.
--- NOTE | 2017-10-25 18:30 | Operative Note - PDOC ---
Operative Note Operative Note Pre-op Diagnosis: sepsis, hypotension, intensive care / critical care requiring pressors Procedure: right subclavian central venous catheter insertion Post-op Diagnosis: same as pre-op Surgeon: arianne Anesthesia: local Specimen: none Complications: none Condition: unstable Fluids: n/a Estimated Blood Loss: minimal Drains: none Implant(s) used?: No Indications for Procedure 52 year old male currently in intensive care unit in critical condition who is septic with hypotension, tachycardia, fevers. Requires pressors and will need central venous access for meds, pressors, fluids. unfortunately patient unable to consent and cannot get in contact with conservator given time of day. emergent need for line for life saving measure. two physician consent obtained. procedure performed at bedside. patient had line placed in left IJ yesterday and has been on pressors since. he pulled out catheter today and requires emergency insertion of new catheter. Description of Procedure patient made comfortable at bedside in the intensive care unit. placed in supine position with Trendelenburg. sterile measures taken, right chest wall prepped and draped in standard surgical fashion. local anesthetic 1% lidocaine infiltrated in proposed skin entry site. the right subclavian vein was cannulated with second pass. guide wire was passed over needle and needle removed. small skin incision made around guide wire with #11 scalpel. dilator used to dilate. triple lumen central venous catheter placed over wire without resistance. wire removed and discarded. line sutured in two placed using provided silk suture. dressings applied. all three ports flushed and aspirated venous blood without difficulty. patient tolerated procedure well. stat cxr ordered for positioning. Mitchell Busby Oct 25, 2017 18:30
[2017-10-25] MEDS: Dyna-Hex 2% Top Sol 2oz TOPIC SCH (19:47)
--- NOTE | 2017-10-25 19:59 | Diagnostic Imaging Report ---
EXAM: XR Chest, 1 View CLINICAL HISTORY: SOB TECHNIQUE: Frontal view of the chest. COMPARISON: 10/24/17 FINDINGS: Lungs: Increased hazy opacities in the lungs suggestive of edema and/or infiltrate, right greater than left. This overall appears worse compared to the prior exam. Some increased interstitial markings are suspected in the lungs which may be related to some interstitial edema. Pleural space: Mild blunting of the left costophrenic angle suggestive of a small left-sided pleural effusion versus pleural thickening. No pneumothorax. Heart: There is some prominence of the cardiac silhouette which may at least partly be related to the portable technique. Mediastinum: Unremarkable. Bones/joints: Unremarkable. IMPRESSION: 1. Increased hazy opacities in the lungs suggestive of edema and/or infiltrate, right greater than left. This overall appears worse compared to the prior exam. 2. There is some prominence of the cardiac silhouette which may at least partly be related to the portable technique. 3. Mild blunting of the left costophrenic angle suggestive of a small left-sided pleural effusion versus pleural thickening. 4. Some increased interstitial markings are suspected in the lungs which may be related to some interstitial edema.
[2017-10-26] VITALS (50 sets, daily range): BP systolic 84–121; BP diastolic 33–92
[2017-10-26 04:40] LABS: HEMATOCRIT 38.7 % (42.0-52.0); HEMOGLOBIN 13.2 G/DL (14.2-18.0); MEAN CORPUSCULAR VOLUME 98 FL (80-99); PLATELET COUNT 86 K/UL (150-450); RED BLOOD COUNT 3.94 M/UL (4.70-6.10); RED CELL DISTRIBUTION WIDTH 13.1 % (11.6-14.8)
[2017-10-26 05:10] LABS: WHITE BLOOD COUNT 25.5 K/UL (4.8-10.8)
[2017-10-26 05:14] LABS: BLOOD UREA NITROGEN 16 mg/dL (7-18); CALCIUM 7.2 MG/DL (8.5-10.1); CHLORIDE 116 MMOL/L (98-107); CREATINE KINASE 5556 U/L (26-308); CREATININE 1.2 MG/DL (0.55-1.30); POTASSIUM 3.9 MMOL/L (3.5-5.1); SODIUM 147 MMOL/L (136-145)
[2017-10-26 05:26] LABS: CARBON DIOXIDE 26 MMOL/L (21-32)
--- NOTE | 2017-10-26 07:37 | Nephrology Progress Note ---
Assessment/Plan Assessment/Plan 1. 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 Resp FL- resolved 4. Urinary Retention- tate 5. Hypotension/Sepsis- Abx, Norepi and IVF's Subjective Date patient seen: Oct 26, 2017 Time patient seen: 07:35 ROS Limited/Unobtainable: Yes Allergies: Coded Allergies: No Known Allergies (Unverified , 10/23/17) All Systems: reviewed and negative except above Subjective Patient off BiPAP and mildly agitated Objective Last 24 Hour Vital Signs Date Time Temp Pulse Resp B/P (MAP) Pulse Ox O2 Delivery O2 Flow Rate FiO2 10/26/17 07:00 100 32 116/54 (74) 95 10/26/17 06:30 101 32 113/60 (77) 95 10/26/17 06:00 99 32 111/62 (78) 93 10/26/17 06:00 111/62 10/26/17 05:30 99 32 102/60 (74) 93 10/26/17 05:09 95 41 99 Facial 35 10/26/17 05:00 100 35 112/68 (83) 93 10/26/17 05:00 112/68 10/26/17 04:30 104 35 121/60 (80) 95 10/26/17 04:17 116/68 10/26/17 04:00 98.4 104 35 116/68 (84) 93 98.4 10/26/17 04:00 111 10/26/17 04:00 Bi-pap 10/26/17 03:43 35 10/26/17 03:30 93 32 107/68 (81) 93 10/26/17 03:00 94 40 98 Full Face 35 10/26/17 03:00 105 35 111/58 (75) 93 10/26/17 02:30 91 35 112/66 (81) 93 10/26/17 02:00 103 35 87/48 (61) 93 10/26/17 01:30 95 35 109/83 (92) 93 10/26/17 01:30 114 37 103/54 (70) 89 10/26/17 01:30 108 42 96 Facial 35 10/26/17 01:15 94 26 109/83 (92) 98 10/26/17 01:00 94 35 88/71 (77) 93 10/26/17 01:00 92 29 88/71 (77) 82 18 00:48 107/47 10/26/17 00:45 100 27 107/47 (67) 78 10/26/17 00:30 95 32 113/57 (75) 95 10/26/17 00:30 96 31 113/57 (75) 83 10/26/17 00:15 95 34 109/59 (76) 100 10/26/17 00:00 Bi-pap 10/26/17 00:00 93 29 105/63 (77) 98 10/26/17 00:00 86 10/26/17 00:00 105/63 10/26/17 00:00 98.2 96 31 105/63 (77) 96 98.2 10/25/17 23:30 93 35 110/66 (81) 93 10/25/17 23:30 84 30 95 Facial 35 10/25/17 23:00 90 37 113/87 (96) 93 10/25/17 23:00 113/87 10/25/17 22:30 119 29 97/59 (72) 97 10/25/17 22:00 109 20 106/1 (36) 97 10/25/17 22:00 106/61 10/25/17 21:30 87 35 99 Full Face 35 10/25/17 21:30 94 29 106/66 (79) 95 10/25/17 21:18 117/54 10/25/17 21:00 90 20 118/74 (89) 97 10/25/17 20:30 90 27 102/63 (76) 93 10/25/17 20:00 96 10/25/17 20:00 103/63 10/25/17 20:00 Venturi Mask 15.0 10/25/17 20:00 98.8 90 20 118/74 (89) 97 98.8 10/25/17 19:45 94 24 102/67 (79) 94 10/25/17 19:30 95 Bi-pap 10/25/17 19:30 97 24 87/37 (54) 88 10/25/17 19:30 83 28 100 Full Face 35 10/25/17 19:30 Bi-pap 10/25/17 19:00 98.8 90 20 118/74 (89) 97 98.8 10/25/17 18:30 90 20 115/77 (90) 97 18 18:00 92 20 115/74 (88) 97 10/25/17 17:30 99 22 90/52 (65) 97 10/25/17 17:00 99 22 94/53 (67) 97 10/25/17 16:30 93 22 95/60 (72) 97 10/25/17 16:00 98.6 80 22 98/56 (70) 98 98.6 10/25/17 16:00 80 10/25/17 16:00 Venturi Mask 15.0 10/25/17 15:30 100 22 90/58 (69) 97 10/25/17 15:00 88 22 110/53 (72) 98 10/25/17 14:30 87 20 102/59 (73) 98 10/25/17 14:02 111/62 10/25/17 14:00 78 20 115/62 (79) 98 10/25/17 13:30 86 19 106/63 (77) 98 10/25/17 13:00 88 20 110/60 (77) 98 10/25/17 12:30 85 24 108/62 (77) 98 10/25/17 12:00 Venturi Mask 15.0 10/25/17 12:00 98.8 95 27 105/58 (74) 99 98.8 10/25/17 12:00 95 10/25/17 11:30 92 25 104/58 (73) 98 10/25/17 11:00 97 23 105/66 (79) 99 10/25/17 10:30 81 21 101/55 (70) 99 10/25/17 10:00 93 27 108/59 (75) 99 10/25/17 09:30 92 26 100/65 (77) 99 10/25/17 09:14 99 23 100 Full Face 35 10/25/17 09:00 96 27 104/58 (73) 99 10/25/17 08:30 96 23 104/54 (71) 100 10/25/17 08:00 88 10/25/17 08:00 Venturi Mask 15.0 10/25/17 08:00 98.6 98 24 105/60 (75) 99 98.6 10/25/17 07:54 Bi-pap 40 Intake and Output 10/25/17 10/26/17 19:00 07:00 Intake Total 1656.25 ml 3181.25 ml Output Total 620 ml 1660 ml Balance 1036.25 ml 1521.25 ml Intake Oral 0 ml IV Total 1656.25 ml 3181.25 ml Output Urine Total 620 ml 1660 ml Laboratory Tests 10/25/17 08:15: White Blood Count 18.4H, Red Blood Count 3.85L, Hemoglobin 12.5L, Hematocrit 37.7L, Mean Corpuscular Volume 98, Mean Corpuscular Hemoglobin 32.4H, Mean Corpuscular Hemoglobin Concent 33.1, Red Cell Distribution Width 13.3, Platelet Count 89L, Mean Platelet Volume 9.8, Neutrophils (%) (Auto) , Lymphocytes (%) ( Auto) , Monocytes (%) (Auto) , Eosinophils (%) (Auto) , Basophils (%) (Auto) , Differential Total Cells Counted 100, Neutrophils % (Manual) 86H, Lymphocytes % (Manual) 7L, Monocytes % (Manual) 3, Eosinophils % (Manual) 0, Basophils % ( Manual) 0, Band Neutrophils 4, Platelet Estimate DecreasedL, Platelet Morphology Normal, Macrocytosis 1+, Sodium Level 145, Potassium Level 3.7, Chloride Level 116H, Carbon Dioxide Level 23, Anion Gap 6, Blood Urea Nitrogen 25H, Creatinine 1.5H, Estimat Glomerular Filtration Rate 49.3, Glucose Level 162H, Calcium Level 6.7L, Total Bilirubin 0.5, Aspartate Amino Transf (AST/SGOT ) 263H, Alanine Aminotransferase (ALT/SGPT) 187H, Alkaline Phosphatase 59, Total Protein 5.1L, Albumin 1.6L, Globulin 3.5, Albumin/Globulin Ratio 0.5L 10/25/17 10:20: Arterial Blood pH 7.340L, Arterial Blood Partial Pressure CO2 38.9, Arterial Blood Partial Pressure O2 146.4H, Arterial Blood HCO3 20.8L, Arterial Blood Oxygen Saturation 98.5H, Arterial Blood Base Excess -4.4, Srinath Test Positive 10/26/17 04:20: White Blood Count 25.5*H, Red Blood Count 3.94L, Hemoglobin 13.2L, Hematocrit 38.7L, Mean Corpuscular Volume 98, Mean Corpuscular Hemoglobin 33.5H, Mean Corpuscular Hemoglobin Concent 34.1, Red Cell Distribution Width 13.1, Platelet Count 86L, Mean Platelet Volume 10.4H, Neutrophils (%) (Auto) , Lymphocytes (%) (Auto) , Monocytes (%) (Auto) , Eosinophils (%) (Auto) , Basophils (%) (Auto) , Neutrophils % (Manual) [Pending], Lymphocytes % (Manual) [Pending], Platelet Estimate [Pending], Platelet Morphology [Pending], Sodium Level 147H, Potassium Level 3.9, Chloride Level 116H, Carbon Dioxide Level 26, Blood Urea Nitrogen 16 , Creatinine 1.2, Estimat Glomerular Filtration Rate > 60, Glucose Level 169H, Calcium Level 7.2L, Total Creatine Kinase 5556H Height (Feet): 5 Height (Inches): 1.00 Weight (Pounds): 102 General Appearance: no apparent distress, alert EENT: normal ENT inspection Neck: normal alignment, supple Cardiovascular: normal rate, regular rhythm Respiratory/Chest: lungs clear, normal breath sounds Abdomen: normal bowel sounds, non tender, soft Edema: no edema noted Arm (L), no edema noted Arm (R), no edema noted Leg (L), no edema noted Leg (R), no edema noted Pedal (L), no edema noted Pedal (R), no edema noted Generalized Aiden Sidhu M.D. Oct 26, 2017 07:37
[2017-10-26] MEDS: Vitamin D 1000 IU Tab ORAL SCH (08:14)
--- NOTE | 2017-10-26 10:01 | General Progress Note ---
Assessment/Plan Assessment/Plan IMPRESSION: 1. sepsis. 2. Acute on chronic encephalopathy. 3. Hypernatremia. 4. Acute renal failure. 5. Severe protein-calorie malnutrition. 6. Leukocytosis. 7. Anemia. 8. Down syndrome. 9. rhabdo PLAN iv hydration monitor renal function and CK taper pressors as able antibiotics noted noted cultures monitor ABG nutrition needed medications/laboratory data/nursing notes/ICU care reviewed in detail note reviewed and edited care discussed with RN and RT ICU time spent 40 minutes Subjective Allergies: Coded Allergies: No Known Allergies (Unverified , 10/23/17) Subjective better more alert still on pressors ck improved Objective Last 24 Hour Vital Signs Date Time Temp Pulse Resp B/P (MAP) Pulse Ox O2 Delivery O2 Flow Rate FiO2 10/26/17 08:10 113/58 10/26/17 07:14 95 Nasal Cannula 3.0 32 10/26/17 07:13 Nasal Cannula 3.0 10/26/17 07:00 100 32 116/54 (74) 95 10/26/17 06:30 101 32 113/60 (77) 95 10/26/17 06:00 99 32 111/62 (78) 93 10/26/17 06:00 111/62 10/26/17 05:30 99 32 102/60 (74) 93 10/26/17 05:09 95 41 99 Facial 35 10/26/17 05:00 100 35 112/68 (83) 93 10/26/17 05:00 112/68 10/26/17 04:30 104 35 121/60 (80) 95 10/26/17 04:17 116/68 10/26/17 04:00 98.4 104 35 116/68 (84) 93 98.4 10/26/17 04:00 111 10/26/17 04:00 Bi-pap 10/26/17 03:43 35 10/26/17 03:30 93 32 107/68 (81) 93 10/26/17 03:00 94 40 98 Full Face 35 10/26/17 03:00 105 35 111/58 (75) 93 10/26/17 02:30 91 35 112/66 (81) 93 10/26/17 02:00 103 35 87/48 (61) 93 10/26/17 01:30 95 35 109/83 (92) 93 10/26/17 01:30 114 37 103/54 (70) 89 10/26/17 01:30 108 42 96 Facial 35 10/26/17 01:15 94 26 109/83 (92) 98 10/26/17 01:00 94 35 88/71 (77) 93 10/26/17 01:00 92 29 88/71 (77) 82 18 00:48 107/47 10/26/17 00:45 100 27 107/47 (67) 78 10/26/17 00:30 95 32 113/57 (75) 95 10/26/17 00:30 96 31 113/57 (75) 83 10/26/17 00:15 95 34 109/59 (76) 100 10/26/17 00:00 Bi-pap 10/26/17 00:00 93 29 105/63 (77) 98 10/26/17 00:00 86 10/26/17 00:00 105/63 10/26/17 00:00 98.2 96 31 105/63 (77) 96 98.2 10/25/17 23:30 93 35 110/66 (81) 93 10/25/17 23:30 84 30 95 Facial 35 10/25/17 23:00 90 37 113/87 (96) 93 10/25/17 23:00 113/87 10/25/17 22:30 119 29 97/59 (72) 97 10/25/17 22:00 109 20 106/1 (36) 97 10/25/17 22:00 106/61 10/25/17 21:30 87 35 99 Full Face 35 10/25/17 21:30 94 29 106/66 (79) 95 10/25/17 21:18 117/54 10/25/17 21:00 90 20 118/74 (89) 97 10/25/17 20:30 90 27 102/63 (76) 93 10/25/17 20:00 96 10/25/17 20:00 103/63 10/25/17 20:00 Venturi Mask 15.0 10/25/17 20:00 98.8 90 20 118/74 (89) 97 98.8 10/25/17 19:45 94 24 102/67 (79) 94 10/25/17 19:30 95 Bi-pap 10/25/17 19:30 97 24 87/37 (54) 88 10/25/17 19:30 83 28 100 Full Face 35 10/25/17 19:30 Bi-pap 10/25/17 19:00 98.8 90 20 118/74 (89) 97 98.8 10/25/17 18:30 90 20 115/77 (90) 97 10/25/17 18:00 92 20 115/74 (88) 97 10/25/17 17:30 99 22 90/52 (65) 97 10/25/17 17:00 99 22 94/53 (67) 97 10/25/17 16:30 93 22 95/60 (72) 97 10/25/17 16:00 98.6 80 22 98/56 (70) 98 98.6 10/25/17 16:00 80 10/25/17 16:00 Venturi Mask 15.0 10/25/17 15:30 100 22 90/58 (69) 97 10/25/17 15:00 88 22 110/53 (72) 98 10/25/17 14:30 87 20 102/59 (73) 98 10/25/17 14:02 111/62 10/25/17 14:00 78 20 115/62 (79) 98 10/25/17 13:30 86 19 106/63 (77) 98 10/25/17 13:00 88 20 110/60 (77) 98 10/25/17 12:30 85 24 108/62 (77) 98 10/25/17 12:00 Venturi Mask 15.0 10/25/17 12:00 98.8 95 27 105/58 (74) 99 98.8 10/25/17 12:00 95 10/25/17 11:30 92 25 104/58 (73) 98 10/25/17 11:00 97 23 105/66 (79) 99 10/25/17 10:30 81 21 101/55 (70) 99 10/25/17 10:00 93 27 108/59 (75) 99 Intake and Output 10/25/17 10/26/17 19:00 07:00 Intake Total 1656.25 ml 3181.25 ml Output Total 620 ml 1660 ml Balance 1036.25 ml 1521.25 ml Intake Oral 0 ml IV Total 1656.25 ml 3181.25 ml Output Urine Total 620 ml 1660 ml Laboratory Tests 10/25/17 10:20: Arterial Blood pH 7.340L, Arterial Blood Partial Pressure CO2 38.9, Arterial Blood Partial Pressure O2 146.4H, Arterial Blood HCO3 20.8L, Arterial Blood Oxygen Saturation 98.5H, Arterial Blood Base Excess -4.4, Srinath Test Positive 10/26/17 04:20: White Blood Count 25.5*H, Red Blood Count 3.94L, Hemoglobin 13.2L, Hematocrit 38.7L, Mean Corpuscular Volume 98, Mean Corpuscular Hemoglobin 33.5H, Mean Corpuscular Hemoglobin Concent 34.1, Red Cell Distribution Width 13.1, Platelet Count 86L, Mean Platelet Volume 10.4H, Neutrophils (%) (Auto) , Lymphocytes (%) (Auto) , Monocytes (%) (Auto) , Eosinophils (%) (Auto) , Basophils (%) (Auto) , Differential Total Cells Counted 100, Neutrophils % (Manual) 92H, Lymphocytes % (Manual) 2L, Monocytes % (Manual) 1, Eosinophils % (Manual) 0, Basophils % ( Manual) 0, Band Neutrophils 5, Platelet Estimate DecreasedL, Platelet Morphology Normal, Macrocytosis 1+, Sodium Level 147H, Potassium Level 3.9, Chloride Level 116H, Carbon Dioxide Level 26, Blood Urea Nitrogen 16, Creatinine 1.2, Estimat Glomerular Filtration Rate > 60, Glucose Level 169H, Calcium Level 7.2L, Total Creatine Kinase 5556H 10/26/17 09:23: Arterial Blood pH 7.320L, Arterial Blood Partial Pressure CO2 46.3H, Arterial Blood Partial Pressure O2 57.3L, Arterial Blood HCO3 23.8, Arterial Blood Oxygen Saturation 89.0L, Arterial Blood Base Excess -2.3, Srinath Test Positive Height (Feet): 5 Height (Inches): 1.00 Weight (Pounds): 102 Objective WDWN NAD and more alert reduced breath sounds bilaterally with some rhonchi [id number] without MRG NABS nontender no HSM no CCE short stature more alert Guero Noel MD Oct 26, 2017 10:01
[2017-10-26] MEDS: Meropenem 1 GM in NS 55 ML IVPB SCH ×2 (11:18→17:59)
[2017-10-26] MEDS ORDERED: NS 275ml ONE (15:53)
[2017-10-26] MEDS ORDERED: 1/2 NS 1000ml IV ONE (15:53)
[2017-10-26] MEDS ORDERED: Tubing IV Secondary IV ONE (15:53)
[2017-10-26] MEDS: Dyna-Hex 2% Top Sol 2oz TOPIC SCH (19:38)
[2017-10-26] MEDS: LORazepam Inj 2mg/ml 1ml IV PRN (22:49)
[2017-10-27] VITALS (52 sets, daily range): BP systolic 76–130; BP diastolic 38–79
--- NOTE | 2017-10-27 01:13 | Diagnostic Imaging Report ---
EXAM: XR Chest, 1 View CLINICAL HISTORY: ABN LABS TECHNIQUE: Frontal view of the chest. COMPARISON: Chest radiograph 10/25/17 FINDINGS: Lungs: Intervally rapidly progressive, substantially worsened bilateral upper and midlung consolidations with air bronchograms concerning for multifocal infection versus ARDS. Pleural space: Probable miniscule new right pleural effusion. No pneumothorax. Heart: Unremarkable. No cardiomegaly. Mediastinum: Unremarkable. Bones/joints: Unremarkable. Tubes, lines and devices: Interval endotracheal intubation, ET tube 3. 3 cm above nicolas. IMPRESSION: 1. Interval endotracheal intubation, ET tube 3.3 cm above nicolas. 2. Intervally rapidly progressive, substantially worsened bilateral upper and midlung consolidations with air bronchograms concerning for multifocal infection versus ARDS. 3. Probable miniscule new right pleural effusion.
--- NOTE | 2017-10-27 01:30 | Emergency Room Report ---
History of Present Illness General Chief Complaint: Fever Source: Caregiver Present Illness Allergies: Coded Allergies: No Known Allergies (Unverified , 10/23/17) Nursing Documentation-[facility] Past Medical History Deferred: Pt Cognitively Impaired Past Medical History: No History, Except For Hx Cardiac Problems: No Hx Cancer: No Hx Gastrointestinal Problems: Yes - constipation/diarrhea Hx Neurological Problems: Yes - Down Syndrome Physical Exam Vital Signs Date Time Temp Pulse Resp B/P (MAP) Pulse Ox O2 Delivery O2 Flow Rate FiO2 10/23/17 21:10 101.5 142 16 75/44 92 Room Air 101.5 10/23/17 21:30 2.0 10/24/17 06:08 40 Procedures Intubation Intubation : Consent: Emergent Intubation Method: orotracheal Tube Size (cm): 7.0 Medications: Etomidate, Succinylcholine Breath Sounds after Intubation: equal Intubation Complications: no complications Post Intubation Xray: Yes Progress/Xray Impression: Refer to report Attempts: One Patient Tolerated: Well Complications: None Progress I was contacted by ICU nurse for intubation of this patient Patient's ABG has shown worsening signs and now is acidotic with increased CO2 Upon arrival the patient is in respiratory distress agonal respirations decreased breath sounds Please refer to the intubation note however patient did not have any complications, 7.0 ET tube was placed through the vocal cords without any difficulty and placed on the ventilator Medical Decision Making Diagnostic Impression: Primary Impression: Severe sepsis Additional Impression: Rhabdomyolysis Chest X-Ray Diagnostic Results Chest X-Ray Diagnostic Results : Chest X-Ray Ordered: Yes # of Views/Limited/Complete: 1 View Indication: Shortness of Breath EP Interpretation: Yes Interpretation: other - ET tube appropriate above nicolas, significant bilateral upper infiltrates, also worsening infiltrates, no other pneumothorax Impression: Other - ET tube appropriate, significant bilateral infiltrates Last Vital Signs Date Time Temp Pulse Resp B/P (MAP) Pulse Ox O2 Delivery O2 Flow Rate FiO2 10/27/17 00:45 114 22 90/50 (63) 99 10/27/17 00:30 100 10/27/17 00:00 98.1 98.1 10/27/17 00:00 Bi-pap 10/26/17 19:16 4.0 Status: improved Disposition: ADMITTED INPATIENT Condition: Critical Referrals: [facility],REFERRING (PCP) Erika Rodriguez DO Oct 27, 2017 01:29
[2017-10-27] MEDS: Meropenem 1 GM in NS 55 ML IVPB SCH ×2 (01:47→09:25)
[2017-10-27 06:17] LABS: ANION GAP 7 mmol/L (5-15); BLOOD UREA NITROGEN 18 mg/dL (7-18); CALCIUM 7.2 MG/DL (8.5-10.1); CARBON DIOXIDE 25 MMOL/L (21-32); CHLORIDE 120 MMOL/L (98-107); CREATINE KINASE 1583 U/L (26-308); CREATININE 1.4 MG/DL (0.55-1.30); POTASSIUM 3.5 MMOL/L (3.5-5.1); SODIUM 152 MMOL/L (136-145)
[2017-10-27] MEDS ORDERED: Levophed 4mg/4mL Inj IV ONE (06:46)
--- NOTE | 2017-10-27 07:53 | Nephrology Progress Note ---
Assessment/Plan Assessment/Plan 1. RABIA- secondary to multifact ATN (pigment Neph + Isch ATN + Urinary retention) - tate , norepi started again with IVF's - Cr 1.4 2. Rhabdo- Pigment Nephropathy - change IVF's to 1/2 NS, CPK down to 1500- resolved - DCed Lipitor 3. Resp FL- re-intubated 4. Urinary Retention- tate 5. Hypotension/Sepsis- Abx, Norepi and IVF's. WBC elevated this am - per ID Subjective Date patient seen: Oct 27, 2017 Time patient seen: 07:51 ROS Limited/Unobtainable: Yes Allergies: Coded Allergies: No Known Allergies (Unverified , 10/23/17) Subjective Patient re-intubated yesterday due to hypoxia and tachypnea Objective Last 24 Hour Vital Signs Date Time Temp Pulse Resp B/P (MAP) Pulse Ox O2 Delivery O2 Flow Rate FiO2 10/27/17 07:00 71 18 95/49 (64) 100 10/27/17 06:51 97/52 10/27/17 06:45 69 18 97/52 (67) 100 10/27/17 06:30 70 18 95/50 (65) 100 10/27/17 06:15 73 18 94/51 (65) 100 10/27/17 06:00 74 18 93/51 (65) 100 10/27/17 05:45 78 18 82/48 (59) 100 10/27/17 05:30 81 18 85/46 (59) 100 10/27/17 05:24 70 10/27/17 05:21 83 18 70 10/27/17 05:15 83 18 83/42 (56) 100 10/27/17 05:00 92 19 90/52 (65) 100 10/27/17 04:45 82 18 87/42 (57) 100 10/27/17 04:30 84 18 87/45 (59) 100 10/27/17 04:15 84 18 83/43 (56) 100 10/27/17 04:00 Mechanical Ventilator 10/27/17 04:00 97 10/27/17 04:00 80 10/27/17 04:00 98.1 85 18 81/46 (58) 100 98.1 10/27/17 03:45 92 18 77/42 (54) 100 10/27/17 03:30 95 18 83/40 (54) 100 10/27/17 03:15 96 18 76/45 (55) 100 10/27/17 03:05 96 18 80 10/27/17 03:00 96 18 82/49 (60) 100 10/27/17 03:00 94 18 83/44 (57) 100 10/27/17 02:45 94 18 82/49 (60) 100 10/27/17 02:30 95 20 93/55 (68) 100 10/27/17 02:15 95 22 96/52 (67) 100 10/27/17 02:00 94 18 86/52 (63) 100 10/27/17 01:45 97 18 77/46 (56) 100 10/27/17 01:30 104 19 78/45 (56) 100 10/27/17 01:15 111 23 98/79 (85) 100 10/27/17 01:00 107 27 88/68 (75) 99 10/27/17 00:45 114 22 90/50 (63) 99 10/27/17 00:30 122 16 79/45 (56) 100 10/27/17 00:30 100 10/27/17 00:30 128 18 100 10/27/17 00:15 131 39 104/51 (68) 93 10/27/17 00:00 131 10/27/17 00:00 98.1 131 48 89/38 (55) 63 98.1 10/27/17 00:00 Bi-pap 10/26/17 23:45 131 42 84/40 (55) 64 10/26/17 23:31 131 37 87/33 (51) 64 10/26/17 23:30 131 38 87/42 (57) 64 10/26/17 23:15 134 34 93/36 (55) 65 10/26/17 23:00 140 43 98/40 (59) 80 10/26/17 22:41 135 43 88 Facial 100 10/26/17 22:00 130 49 103/57 (72) 98 10/26/17 21:00 126 54 105/46 (65) 99 10/26/17 20:30 129 36 90 Facial 100 10/26/17 20:00 Bi-pap 10/26/17 20:00 122 7/14/18 20:00 130 51 98/69 (79) 97 7/14/18 19:16 99 Nasal Cannula 4.0 36 7/18 19:16 115 19 Nasal Cannula 4.0 36 7/14/18 19:16 Nasal Cannula 4.0 36 714/18 19:00 136 31 108/50 (69) 92 7/14/18 18:30 126 24 114/53 (73) 96 7/14/18 18:00 120 29 106/54 (71) 99 7/14/18 18:00 106/50 714/18 17:30 115 34 106/50 (68) 98 7/14/18 17:00 106/48 714/18 17:00 117 36 106/48 (67) 98 7//18 16:30 120 32 108/51 (70) 97 718 16:00 Bi-pap 10/26/17 16:00 97.6 119 32 114/62 (79) 93 97.6 10/26/17 16:00 116 18 16:00 104/63 18 15:30 113 32 107/64 (78) 100 18 15:00 107/62 18 15:00 114 29 107/62 (77) 100 10/26/18 14:30 114 29 109/61 (77) 92 718 14:00 106 30 110/61 (77) 92 718 14:00 101/79 718 13:37 106/69 718 13:30 112 28 108/61 (77) 92 718 13:00 112 28 94/79 (84) 94 714/18 13:00 94/79 18 12:30 106 34 108/65 (79) 94 18 12:00 106 18 12:00 106 32 109/59 (76) 94 18 12:00 Bi-pap 10/26/17 11:30 113 28 116/61 (79) 95 18 11:18 106/66 71418 11:00 103 32 116/64 (81) 100 18 10:30 106 29 114/62 (79) 95 7/14/18 10:00 103 41 114/63 (80) 95 10/26/17 10:00 115/92 10/26/17 09:30 108 32 115/92 (100) 82 10/26/17 09:00 108 32 115/92 (100) 82 10/26/17 09:00 114/70 10/26/17 08:30 114 32 114/70 (85) 91 10/26/17 08:10 113/58 10/26/17 08:00 109 10/26/17 08:00 Bi-pap 10/26/17 08:00 118 32 110/48 (68) 92 Intake and Output 10/26/17 10/27/17 19:00 07:00 Intake Total 1648.75 ml 1710.0 ml Output Total 1775 ml 1520 ml Balance -126.25 ml 190.0 ml Intake Oral 40 ml 0 ml IV Total 1608.75 ml 1710.0 ml Output Urine Total 1775 ml 1520 ml # Bowel Movements 1 1 Laboratory Tests 10/26/17 09:23: Arterial Blood pH 7.320L, Arterial Blood Partial Pressure CO2 46.3H, Arterial Blood Partial Pressure O2 57.3L, Arterial Blood HCO3 23.8, Arterial Blood Oxygen Saturation 89.0L, Arterial Blood Base Excess -2.3, Srinath Test Positive 10/26/17 23:08: Arterial Blood pH 6.992*L, Arterial Blood Partial Pressure CO2 137.0*H, Arterial Blood Partial Pressure O2 41.7*L, Arterial Blood HCO3 32.4H, Arterial Blood Oxygen Saturation 60.9L, Arterial Blood Base Excess -2.5, Srinath Test Positive 10/27/17 01:10: Arterial Blood pH 7.342L, Arterial Blood Partial Pressure CO2 45.6H, Arterial Blood Partial Pressure O2 280.7H, Arterial Blood HCO3 24.2, Arterial Blood Oxygen Saturation 98.9H, Arterial Blood Base Excess -1.7, Srinath Test Positive 10/27/17 03:55: Sodium Level 152H, Potassium Level 3.5, Chloride Level 120H, Carbon Dioxide Level 25, Anion Gap 7, Blood Urea Nitrogen 18, Creatinine 1.4H, Estimat Glomerular Filtration Rate 53.4, Glucose Level 157H, Calcium Level 7.2L, Total Creatine Kinase 1583H Height (Feet): 5 Height (Inches): 1.00 Weight (Pounds): 103 General Appearance: WD/WN, no apparent distress EENT: PERRL/EOMI Neck: non-tender, normal alignment, supple Cardiovascular: normal rate, regular rhythm Respiratory/Chest: chest wall non-tender, rhonchi - bilaterally Abdomen: normal bowel sounds, non tender, soft Edema: no edema noted Arm (L), no edema noted Arm (R), no edema noted Leg (L), no edema noted Leg (R), no edema noted Pedal (L), no edema noted Pedal (R), no edema noted Generalized Aiden Sidhu M.D. Oct 27, 2017 07:53
--- NOTE | 2017-10-27 08:18 | General Progress Note ---
Assessment/Plan Assessment/Plan IMPRESSION: 1. sepsis. 2. Acute on chronic encephalopathy. 3. Hypernatremia. 4. Acute renal failure. 5. Severe protein-calorie malnutrition. 6. Leukocytosis. 7. Anemia. 8. Down syndrome. 9. rhabdo 10. respiratory failure PLAN iv hydration monitor renal function and CK taper pressors as able antibiotics noted noted cultures monitor ABG nutrition needed vent support NGT monitor sodium and correct hope to avoid trach medications/laboratory data/nursing notes/ICU care reviewed in detail note reviewed and edited care discussed with RN and RT ICU time spent 40 minutes Subjective Allergies: Coded Allergies: No Known Allergies (Unverified , 10/23/17) Subjective required intubation poor LOC Objective Last 24 Hour Vital Signs Date Time Temp Pulse Resp B/P (MAP) Pulse Ox O2 Delivery O2 Flow Rate FiO2 10/27/17 07:00 71 18 95/49 (64) 100 10/27/17 06:51 97/52 10/27/17 06:45 69 18 97/52 (67) 100 10/27/17 06:30 70 18 95/50 (65) 100 10/27/17 06:15 73 18 94/51 (65) 100 10/27/17 06:00 74 18 93/51 (65) 100 10/27/17 05:45 78 18 82/48 (59) 100 10/27/17 05:30 81 18 85/46 (59) 100 10/27/17 05:24 70 10/27/17 05:21 83 18 70 10/27/17 05:15 83 18 83/42 (56) 100 10/27/17 05:00 92 19 90/52 (65) 100 10/27/17 04:45 82 18 87/42 (57) 100 10/27/17 04:30 84 18 87/45 (59) 100 10/27/17 04:15 84 18 83/43 (56) 100 10/27/17 04:00 Mechanical Ventilator 10/27/17 04:00 97 10/27/17 04:00 80 10/27/17 04:00 98.1 85 18 81/46 (58) 100 98.1 10/27/17 03:45 92 18 77/42 (54) 100 10/27/17 03:30 95 18 83/40 (54) 100 10/27/17 03:15 96 18 76/45 (55) 100 10/27/17 03:05 96 18 80 10/27/17 03:00 96 18 82/49 (60) 100 10/27/17 03:00 94 18 83/44 (57) 100 10/27/17 02:45 94 18 82/49 (60) 100 10/27/17 02:30 95 20 93/55 (68) 100 10/27/17 02:15 95 22 96/52 (67) 100 10/27/17 02:00 94 18 86/52 (63) 100 10/27/17 01:45 97 18 77/46 (56) 100 10/27/17 01:30 104 19 78/45 (56) 100 10/27/17 01:15 111 23 98/79 (85) 100 10/27/17 01:00 107 27 88/68 (75) 99 10/27/17 00:45 114 22 90/50 (63) 99 10/27/17 00:30 122 16 79/45 (56) 100 10/27/17 00:30 100 10/27/17 00:30 128 18 100 10/27/17 00:15 131 39 104/51 (68) 93 10/27/17 00:00 131 10/27/17 00:00 98.1 131 48 89/38 (55) 63 98.1 10/27/17 00:00 Bi-pap 10/26/17 23:45 131 42 84/40 (55) 64 10/26/17 23:31 131 37 87/33 (51) 64 10/26/17 23:30 131 38 87/42 (57) 64 10/26/17 23:15 134 34 93/36 (55) 65 10/26/17 23:00 140 43 98/40 (59) 80 10/26/17 22:41 135 43 88 Facial 100 10/26/17 22:00 130 49 103/57 (72) 98 10/26/17 21:00 126 54 105/46 (65) 99 10/26/17 20:30 129 36 90 Facial 100 10/26/17 20:00 Bi-pap 10/26/17 20:00 122 10/26/17 20:00 130 51 98/69 (79) 97 10/26/17 19:16 99 Nasal Cannula 4.0 36 7/14/18 19:16 115 19 Nasal Cannula 4.0 36 714/18 19:16 Nasal Cannula 4.0 36 714/18 19:00 136 31 108/50 (69) 92 7/14/18 18:30 126 24 114/53 (73) 96 7/14/18 18:00 120 29 106/54 (71) 99 7/14/18 18:00 106/50 714/18 17:30 115 34 106/50 (68) 98 7/14/18 17:00 106/48 714/18 17:00 117 36 106/48 (67) 98 7/14/18 16:30 120 32 108/51 (70) 97 718 16:00 Bi-pap 10/26/17 16:00 97.6 119 32 114/62 (79) 93 97.6 10/26/17 16:00 116 18 16:00 104/63 18 15:30 113 32 107/64 (78) 100 18 15:00 107/62 18 15:00 114 29 107/62 (77) 100 18 14:30 114 29 109/61 (77) 92 18 14:00 106 30 110/61 (77) 92 18 14:00 101/79 18 13:37 106/69 18 13:30 112 28 108/61 (77) 92 718 13:00 112 28 94/79 (84) 94 718 13:00 94/79 18 12:30 106 34 108/65 (79) 94 18 12:00 106 18 12:00 106 32 109/59 (76) 94 18 12:00 Bi-pap 10/26/17 11:30 113 28 116/61 (79) 95 18 11:18 106/66 71418 11:00 103 32 116/64 (81) 100 18 10:30 106 29 114/62 (79) 95 18 10:00 103 41 114/63 (80) 95 18 10:00 115/92 7/14/18 09:30 108 32 115/92 (100) 82 10/26/17 09:00 108 32 115/92 (100) 82 10/26/17 09:00 114/70 10/26/17 08:30 114 32 114/70 (85) 91 Intake and Output 10/26/17 10/27/17 19:00 07:00 Intake Total 1648.75 ml 1710.0 ml Output Total 1775 ml 1520 ml Balance -126.25 ml 190.0 ml Intake Oral 40 ml 0 ml IV Total 1608.75 ml 1710.0 ml Output Urine Total 1775 ml 1520 ml # Bowel Movements 1 1 Laboratory Tests 10/26/17 09:23: Arterial Blood pH 7.320L, Arterial Blood Partial Pressure CO2 46.3H, Arterial Blood Partial Pressure O2 57.3L, Arterial Blood HCO3 23.8, Arterial Blood Oxygen Saturation 89.0L, Arterial Blood Base Excess -2.3, Srinath Test Positive 10/26/17 23:08: Arterial Blood pH 6.992*L, Arterial Blood Partial Pressure CO2 137.0*H, Arterial Blood Partial Pressure O2 41.7*L, Arterial Blood HCO3 32.4H, Arterial Blood Oxygen Saturation 60.9L, Arterial Blood Base Excess -2.5, Srinath Test Positive 10/27/17 01:10: Arterial Blood pH 7.342L, Arterial Blood Partial Pressure CO2 45.6H, Arterial Blood Partial Pressure O2 280.7H, Arterial Blood HCO3 24.2, Arterial Blood Oxygen Saturation 98.9H, Arterial Blood Base Excess -1.7, Srinath Test Positive 10/27/17 03:55: Sodium Level 152H, Potassium Level 3.5, Chloride Level 120H, Carbon Dioxide Level 25, Anion Gap 7, Blood Urea Nitrogen 18, Creatinine 1.4H, Estimat Glomerular Filtration Rate 53.4, Glucose Level 157H, Calcium Level 7.2L, Total Creatine Kinase 1583H Height (Feet): 5 Height (Inches): 1.00 Weight (Pounds): 103 Objective WDWN NAD and sedated on vent, ETT in place reduced breath sounds bilaterally with some rhonchi [id number] without MRG NABS nontender no HSM no CCE short stature more alert Guero Noel MD Oct 27, 2017 08:18
[2017-10-27] MEDS: Vitamin D 1000 IU Tab ORAL SCH (09:25)
[2017-10-27 10:27] LABS: HEMATOCRIT 30.6 % (42.0-52.0); MEAN CORPUSCULAR VOLUME 98 FL (80-99); PLATELET COUNT 92 K/UL (150-450); RED BLOOD COUNT 3.11 M/UL (4.70-6.10); RED CELL DISTRIBUTION WIDTH 13.1 % (11.6-14.8); WHITE BLOOD COUNT 14.4 K/UL (4.8-10.8)
--- NOTE | 2017-10-27 10:51 | Infectious Diseases Prog Note ---
Assessment/Plan Assessment/Plan A; Sepsis/Septic shock on Levophed E. coli sepsis Pneumonia with staph aureus Acute renal failure Rhabdomyolysis Acidosis Elevated transaminase O; Change Meropenem to Rocephin Add IV Vancomycin will f/u abdominal CT report Subjective ROS Limited/Unobtainable: Yes Neurologic: Reports: other - on restraint Allergies: Coded Allergies: No Known Allergies (Unverified , 10/23/17) Objective Vital Signs Last 24 Hour Vital Signs Date Time Temp Pulse Resp B/P (MAP) Pulse Ox O2 Delivery O2 Flow Rate FiO2 10/27/17 10:00 70 18 98/49 (65) 100 10/27/17 10:00 98/49 10/27/17 09:00 95/53 10/27/17 09:00 73 18 126/47 (73) 100 10/27/17 08:32 74 18 70 10/27/17 08:00 97.6 69 18 96/53 (67) 100 97.6 10/27/17 08:00 96/53 10/27/17 08:00 82 10/27/17 08:00 Mechanical Ventilator 10/27/17 07:00 71 18 95/49 (64) 100 10/27/17 06:51 97/52 10/27/17 06:45 69 18 97/52 (67) 100 10/27/17 06:30 70 18 95/50 (65) 100 10/27/17 06:15 73 18 94/51 (65) 100 10/27/17 06:00 74 18 93/51 (65) 100 10/27/17 05:45 78 18 82/48 (59) 100 10/27/17 05:30 81 18 85/46 (59) 100 10/27/17 05:24 70 10/27/17 05:21 83 18 70 10/27/17 05:15 83 18 83/42 (56) 100 10/27/17 05:00 92 19 90/52 (65) 100 10/27/17 04:45 82 18 87/42 (57) 100 10/27/17 04:30 84 18 87/45 (59) 100 10/27/17 04:15 84 18 83/43 (56) 100 10/27/17 04:00 Mechanical Ventilator 10/27/17 04:00 97 10/27/17 04:00 80 10/27/17 04:00 98.1 85 18 81/46 (58) 100 98.1 10/27/17 03:45 92 18 77/42 (54) 100 10/27/17 03:30 95 18 83/40 (54) 100 10/27/17 03:15 96 18 76/45 (55) 100 10/27/17 03:05 96 18 80 10/27/17 03:00 96 18 82/49 (60) 100 10/27/17 03:00 94 18 83/44 (57) 100 10/27/17 02:45 94 18 82/49 (60) 100 10/27/17 02:30 95 20 93/55 (68) 100 10/27/17 02:15 95 22 96/52 (67) 100 10/27/17 02:00 94 18 86/52 (63) 100 10/27/17 01:45 97 18 77/46 (56) 100 10/27/17 01:30 104 19 78/45 (56) 100 10/27/17 01:15 111 23 98/79 (85) 100 10/27/17 01:00 107 27 88/68 (75) 99 10/27/17 00:45 114 22 90/50 (63) 99 10/27/17 00:30 122 16 79/45 (56) 100 10/27/17 00:30 100 10/27/17 00:30 128 18 100 10/27/17 00:15 131 39 104/51 (68) 93 10/27/17 00:00 131 10/27/17 00:00 98.1 131 48 89/38 (55) 63 98.1 10/27/17 00:00 Bi-pap 10/26/17 23:45 131 42 84/40 (55) 64 10/26/17 23:31 131 37 87/33 (51) 64 10/26/17 23:30 131 38 87/42 (57) 64 10/26/17 23:15 134 34 93/36 (55) 65 10/26/17 23:00 140 43 98/40 (59) 80 10/26/17 22:41 135 43 88 Facial 100 10/26/17 22:00 130 49 103/57 (72) 98 10/26/17 21:00 126 54 105/46 (65) 99 7/14/18 20:30 129 36 90 Facial 100 71418 20:00 Bi-pap 10/26/17 20:00 122 718 20:00 130 51 98/69 (79) 97 718 19:16 99 Nasal Cannula 4.0 36 714/18 19:16 115 19 Nasal Cannula 4.0 36 714/18 19:16 Nasal Cannula 4.0 36 18 19:00 136 31 108/50 (69) 92 71418 18:30 126 24 114/53 (73) 96 714/18 18:00 120 29 106/54 (71) 99 714/18 18:00 106/50 7/18 17:30 115 34 106/50 (68) 98 18 17:00 106/48 718 17:00 117 36 106/48 (67) 98 7/18 16:30 120 32 108/51 (70) 97 18 16:00 Bi-pap 10/26/17 16:00 97.6 119 32 114/62 (79) 93 97.6 18 16:00 116 18 16:00 104/63 10/26/18 15:30 113 32 107/64 (78) 100 18 15:00 107/62 18 15:00 114 29 107/62 (77) 100 /14/18 14:30 114 29 109/61 (77) 92 18 14:00 106 30 110/61 (77) 92 718 14:00 101/79 14/18 13:37 106/69 18 13:30 112 28 108/61 (77) 92 714/18 13:00 112 28 94/79 (84) 94 718 13:00 94/79 18 12:30 106 34 108/65 (79) 94 718 12:00 106 718 12:00 106 32 109/59 (76) 94 718 12:00 Bi-pap 10/26/17 11:30 113 28 116/61 (79) 95 14/18 11:18 106/66 714/18 11:00 103 32 116/64 (81) 100 Height (Feet): 5 Height (Inches): 1.00 Weight (Pounds): 103 HEENT: other Respiratory/Chest: lungs clear, other - on vetilator Cardiovascular: normal rate Abdomen: soft, non tender, other - NGT feeding Extremities: no edema Neurologic/Psychiatric: unresponsiveness Microbiology Date/Time Source Procedure Growth Status 10/24/17 18:00 Sputum Gram Stain - Final Resulted 10/24/17 18:00 Sputum Culture - Preliminary Staphylococcus Aureus Resulted 10/24/17 17:12 Urine,Clean Catch Urine Culture - Final NO GROWTH AFTER 48 HOURS Complete Laboratory Tests Test 10/26/17 23:08 10/27/17 01:10 10/27/17 03:55 10/27/17 09:00 Arterial Blood pH 6.992 (7.350-7.450) 7.342 (7.350-7.450) 7.495 (7.350-7.450) Arterial Blood Partial Pressure CO2 137.0 mmHg (35.0-45.0) *H 45.6 mmHg (35.0-45.0) H 27.6 mmHg (35.0-45.0) L Arterial Blood Partial Pressure O2 41.7 mmHg (75.0-100.0) 280.7 mmHg (75.0-100.0) H 162.3 mmHg (75.0-100.0) H Arterial Blood HCO3 32.4 mmol/L (22.0-26.0) H 24.2 mmol/L (22.0-26.0) 20.8 mmol/L (22.0-26.0) L Arterial Blood Oxygen Saturation 60.9 % (92.0-98.0) L 98.9 % (92.0-98.0) H 98.0 % (92.0-98.0) Arterial Blood Base Excess -2.5 -1.7 -1.6 Srinath Test Positive Positive Positive Sodium Level 152 MMOL/L (136-145) H Potassium Level 3.5 MMOL/L (3.5-5.1) Chloride Level 120 MMOL/L (98-107) H Carbon Dioxide Level 25 MMOL/L (21-32) Anion Gap 7 mmol/L (5-15) Blood Urea Nitrogen 18 mg/dL (7-18) Creatinine 1.4 MG/DL (0.55-1.30) H Estimat Glomerular Filtration Rate 53.4 mL/min (>60) Glucose Level 157 MG/DL (74-106) H Calcium Level 7.2 MG/DL (8.5-10.1) L Total Creatine Kinase 1583 U/L (26-308) H Test 10/27/17 10:05 White Blood Count 14.4 K/UL (4.8-10.8) H Red Blood Count 3.11 M/UL (4.70-6.10) L Hemoglobin 10.0 G/DL (14.2-18.0) L Hematocrit 30.6 % (42.0-52.0) L Mean Corpuscular Volume 98 FL (80-99) Mean Corpuscular Hemoglobin 32.3 PG (27.0-31.0) H Mean Corpuscular Hemoglobin Concent 32.9 G/DL (32.0-36.0) Red Cell Distribution Width 13.1 % (11.6-14.8) Platelet Count 92 K/UL (150-450) L Mean Platelet Volume 10.2 FL (6.5-10.1) H Neutrophils (%) (Auto) % (45.0-75.0) Lymphocytes (%) (Auto) % (20.0-45.0) Monocytes (%) (Auto) % (1.0-10.0) Eosinophils (%) (Auto) % (0.0-3.0) Basophils (%) (Auto) % (0.0-2.0) Neutrophils % (Manual) Pending Lymphocytes % (Manual) Pending Platelet Estimate Pending Platelet Morphology Pending Current Medications Medications (Trade) Dose Ordered Sig/Merlene Route PRN Reason Start Time Stop Time Status Last Admin Dose Admin Acetaminophen (Tylenol) 650 mg Q4H PRN ORAL Mild Pain/Temp > 100.5 10/24/17 02:15 11/23/17 02:14 Chlorhexidine Gluconate (Chandni-Hex 2%) 1 applic DAILY@1999 TOPIC 10/25/17 20:00 11/24/17 19:59 10/26/17 19:38 Docusate Sodium (Colace) 100 mg DAILY PRN ORAL Constipation 10/24/17 02:30 11/23/17 02:29 Lorazepam (Ativan 2mg/ml 1ml) 1 mg Q3HR PRN IV For Anxiety 10/26/17 22:45 11/02/17 22:44 10/26/17 22:49 Meropenem 1 gm/ Sodium Chloride 55 ml @ 110 mls/hr Q8HR@0200,1000,1800 IVPB 10/26/17 10:00 10/31/17 09:59 10/27/17 09:25 Norepinephrine Bitartrate 4 mg/ Dextrose 250 ml @ 56.25 mls/ hr Q24H IV 10/25/17 02:30 11/24/17 02:14 10/27/17 06:51 Sodium Chloride 1,000 ml @ 100 mls/hr Q10H IV 10/27/17 08:00 11/26/17 07:59 10/27/17 09:26 Vitamin D (Vitamin D) 1,000 intlu DAILY ORAL 10/24/17 09:00 11/23/17 08:59 10/27/17 09:25 Ryan Fritz MD Oct 27, 2017 10:51
--- NOTE | 2017-10-27 12:22 | Cardiology Report ---
APPROVED REPORT EKG Measurement Heart [id number] Sinus tachycardia Nonspecific ST and T wave abnormality Abnormal ECG
[2017-10-27] MEDS: cefTRIAXone 2 GM in D5W 110 ML IVPB SCH (12:48)
--- NOTE | 2017-10-27 13:18 | Diagnostic Imaging Report ---
EXAM: XR Abdomen, CLINICAL HISTORY: NGT TECHNIQUE: Frontal view of the abdomen/pelvis. COMPARISON: CT abdomen and pelvis 10/24/17, chest x-ray today FINDINGS: Gastrointestinal tract: Gassy bowel loops in the upper abdomen. Bones/joints: Unremarkable. Tubes, lines and devices: NG tube tip in stomach, good position. Endotracheal tube 14 mm above the nicolas. Other findings: Interstitial prominence of the lungs may be edema or infiltrate. IMPRESSION: 1. NG tube tip in stomach, good position. 2. Endotracheal tube 14 mm above the nicolas. 3. Gassy bowel loops in the upper abdomen. 4. Interstitial prominence of the lungs.
[2017-10-27] MEDS ORDERED: Vancomycin 1gm/D5W 275ml IVPB ONE ×2 (13:30)
[2017-10-27] MEDS ORDERED: Tubing IV Secondary IV ONE (16:32)
[2017-10-27] MEDS ORDERED: NS 275ml ONE (16:32)
[2017-10-27] MEDS: Dyna-Hex 2% Top Sol 2oz TOPIC SCH (20:04)
[2017-10-28] VITALS (27 sets, daily range): BP systolic 83–129; BP diastolic 40–67
[2017-10-28 05:26] LABS: ANION GAP 8 mmol/L (5-15); BLOOD UREA NITROGEN 20 mg/dL (7-18); CARBON DIOXIDE 26 MMOL/L (21-32); CHLORIDE 114 MMOL/L (98-107); CREATINE KINASE 1184 U/L (26-308); CREATININE 1.1 MG/DL (0.55-1.30); SODIUM 147 MMOL/L (136-145)
[2017-10-28 05:39] LABS: POTASSIUM 2.5 MMOL/L (3.5-5.1)
[2017-10-28] MEDS ORDERED: Vancomycin 1gm/D5W 275ml IVPB ONE ×4 (07:00→10:00)
--- NOTE | 2017-10-28 08:00 | Nephrology Progress Note ---
Assessment/Plan Assessment/Plan 1. RABIA- secondary to multifact ATN (pigment Neph + Isch ATN + Urinary retention) - tate , norepi with IVF's - resolved, Cr 1.1 2. Rhabdo- Pigment Nephropathy - IVF's to 1/2 NS, CPK down to 1184 - DCed Lipitor 3. Resp FL- intubated 4. Urinary Retention- tate 5. Hypotension/Sepsis- Abx, Norepi and IVF's. - per ID 6. Hypokalemia- replaced today Subjective Date patient seen: Oct 28, 2017 Time patient seen: 07:58 ROS Limited/Unobtainable: Yes Allergies: Coded Allergies: No Known Allergies (Unverified , 10/23/17) Subjective Patient intubated. stable Objective Last 24 Hour Vital Signs Date Time Temp Pulse Resp B/P (MAP) Pulse Ox O2 Delivery O2 Flow Rate FiO2 10/28/17 07:00 58 18 90/45 (60) 100 10/28/17 06:00 58 18 95/44 (61) 100 10/28/17 05:19 84 18 30 10/28/17 05:00 98.9 70 18 100/59 (73) 100 98.9 10/28/17 04:00 79 10/28/17 04:00 Mechanical Ventilator 10/28/17 04:00 58 18 124/59 (80) 100 10/28/17 03:41 50 10/28/17 03:30 57 18 110/67 (81) 100 10/28/17 03:00 57 18 129/54 (79) 100 10/28/17 03:00 87 24 30 10/28/17 02:30 57 18 104/55 (71) 100 10/28/17 02:00 56 18 109/58 (75) 100 10/28/17 01:30 56 18 105/55 (72) 100 10/28/17 01:00 56 18 115/44 (67) 100 10/28/17 01:00 115/44 10/28/17 00:41 56 18 30 10/28/17 00:00 50 10/28/17 00:00 56 18 102/49 (66) 100 10/28/17 00:00 Mechanical Ventilator 10/28/17 00:00 102/49 10/27/17 23:30 56 18 101/46 (64) 100 10/27/17 23:30 58 18 30 10/27/17 23:00 101/51 10/27/17 23:00 56 18 94/44 (61) 100 10/27/17 22:30 55 18 101/51 (68) 100 10/27/17 22:00 110/52 10/27/17 22:00 55 18 110/52 (71) 100 10/27/17 21:30 60 18 30 10/27/17 21:30 55 18 110/57 (74) 100 10/27/17 21:00 99/49 10/27/17 21:00 55 18 99/49 (66) 100 10/27/17 20:30 55 18 97/47 (64) 100 10/27/17 20:00 50 10/27/17 20:00 60 10/27/17 20:00 93/45 10/27/17 20:00 56 18 93/45 (61) 100 10/27/17 20:00 Mechanical Ventilator 10/27/17 19:30 54 18 91/40 (57) 100 10/27/17 19:30 62 18 30 10/27/17 19:00 98.5 56 18 87/44 (58) 100 98.5 10/27/17 19:00 87/44 10/27/17 18:30 54 18 100/48 (65) 100 10/27/17 18:00 54 18 130/53 (78) 100 10/27/17 18:00 118/57 10/27/17 17:50 94/45 10/27/17 17:30 55 18 94/45 (61) 100 10/27/17 17:15 98.8 10/27/17 17:00 63 18 116/58 (77) 100 10/27/17 17:00 116/58 10/27/17 16:57 57 18 30 10/27/17 16:16 100.1 10/27/17 16:00 Mechanical Ventilator 10/27/17 16:00 99/55 10/27/17 16:00 88 10/27/17 16:00 100.1 67 18 99/58 (72) 100 100.1 10/27/17 15:18 79 23 30 10/27/17 15:00 69 18 101/57 (72) 100 10/27/17 15:00 112/62 10/27/17 14:00 105/56 10/27/17 14:00 71 18 107/51 (69) 100 10/27/17 13:00 104/53 10/27/17 13:00 63 18 105/54 (71) 100 10/27/17 12:57 68 18 30 10/27/17 12:00 99.6 84 18 88/44 (59) 100 99.6 10/27/17 12:00 Mechanical Ventilator 10/27/17 12:00 82 10/27/17 12:00 88/44 10/27/17 11:00 71 18 96/50 (65) 100 10/27/17 11:00 92/44 10/27/17 10:54 98 21 30 10/27/17 10:00 70 18 98/49 (65) 100 10/27/17 10:00 98/49 10/27/17 09:00 95/53 10/27/17 09:00 73 18 126/47 (73) 100 10/27/17 08:32 74 18 50 10/27/17 08:00 97.6 69 18 96/53 (67) 100 97.6 10/27/17 08:00 96/53 10/27/17 08:00 82 10/27/17 08:00 Mechanical Ventilator Intake and Output 10/27/17 10/28/17 19:00 07:00 Intake Total 1531.295 ml 1245.0 ml Output Total 725 ml 635 ml Balance 806.295 ml 610.0 ml Intake Oral 0 ml 0 ml IV Total 1531.295 ml 1245.0 ml Output Urine Total 725 ml 635 ml # Bowel Movements 3 1 Laboratory Tests 10/27/17 09:00: Arterial Blood pH 7.495H, Arterial Blood Partial Pressure CO2 27.6L, Arterial Blood Partial Pressure O2 162.3H, Arterial Blood HCO3 20.8L, Arterial Blood Oxygen Saturation 98.0, Arterial Blood Base Excess -1.6, Srinath Test Positive 10/27/17 10:05: White Blood Count 14.4H, Red Blood Count 3.11L, Hemoglobin 10.0L, Hematocrit 30.6L, Mean Corpuscular Volume 98, Mean Corpuscular Hemoglobin 32.3H, Mean Corpuscular Hemoglobin Concent 32.9, Red Cell Distribution Width 13.1, Platelet Count 92L, Mean Platelet Volume 10.2H, Neutrophils (%) (Auto) , Lymphocytes (%) (Auto) , Monocytes (%) (Auto) , Eosinophils (%) (Auto) , Basophils (%) (Auto) , Differential Total Cells Counted 100, Neutrophils % (Manual) 84H, Lymphocytes % (Manual) 9L, Monocytes % (Manual) 1, Eosinophils % (Manual) 0, Basophils % ( Manual) 0, Band Neutrophils 6, Platelet Estimate DecreasedL, Platelet Morphology Normal, Hypochromasia 1+ 10/28/17 04:20: Sodium Level 147H, Potassium Level 2.5*L, Chloride Level 114H, Carbon Dioxide Level 26, Anion Gap 8, Blood Urea Nitrogen 20H, Creatinine 1.1, Estimat Glomerular Filtration Rate > 60, Glucose Level 111H, Calcium Level 7.0L, Total Creatine Kinase 1184H, Random Vancomycin Level 10.3 Height (Feet): 5 Height (Inches): 1.00 Weight (Pounds): 106 General Appearance: WD/WN, no apparent distress EENT: PERRL/EOMI Neck: non-tender, normal alignment Cardiovascular: normal peripheral pulses, normal rate Respiratory/Chest: lungs clear, normal breath sounds Abdomen: non tender, soft Edema: no edema noted Arm (L), no edema noted Arm (R), no edema noted Leg (L), no edema noted Leg (R), no edema noted Pedal (L), no edema noted Pedal (R), no edema noted Generalized Aiden Sidhu M.D. Oct 28, 2017 08:00
[2017-10-28] MEDS: Vitamin D 1000 IU Tab ORAL SCH (09:00)
[2017-10-28] MEDS: Vancomycin 1gm/D5W 275ml IVPB SCH ×2 (10:00)
[2017-10-28] MEDS: cefTRIAXone 2 GM in D5W 110 ML IVPB SCH (13:16)
--- NOTE | 2017-10-28 17:36 | Diagnostic Imaging Report ---
Indication: Abdominal pain for 3 days Technique: Spiral acquisitions obtained through the abdomen and pelvis. No oral contrast utilized, per emergency room physician request No IV contrast utilized, per referring physician request.. Multiplanar reconstructions were generated. Total dose length product 652 mGycm. CTDIvol(s) 12 mGy. Dose reduction achieved using automated exposure control Comparison: None Findings: What is probably a normal appendix is demonstrated. The cecum appears somewhat thick walled. There is mild distention of the ascending colon with feces. There is also suggestion of mild wall thickening of the distal sigmoid colon and rectum. No small bowel distention. No free or loculated intraperitoneal air or fluid is evident. The distal esophagus, stomach, duodenum are grossly unremarkable. Lack of IV contrast limits assessment of the solid organs. There is pneumobilia. The gallbladder is not definitely visualized, presumed surgically absent. No definite focal liver lesions. The pancreas, spleen, adrenals are all unremarkable. The right kidney demonstrates a 3 cm cyst. The left kidney demonstrates a 1.5 cm cyst with a dependent calculus. No hydronephrosis. The bladder is diffusely distended and thick walled. It demonstrates a calcification dependently posteriorly to the right of midline. No pelvic mass or adenopathy. The included lung bases demonstrate fairly extensive interstitial and airspace disease. There are small bilateral pleural effusions. The bones demonstrate a compression fracture deformities of L1 and L5 as well as questionable superior endplate compression fracture deformities of T8, T9, and T11. Impression: Bilateral basilar pulmonary parenchymal disease, likely pulmonary edema, pneumonia also a possibility. Associated small bilateral pleural effusions Colon wall thickening, suspect colitis. Correlate with clinical findings Distended urinary bladder with wall thickening, probably on the basis of chronic outlet obstruction or neurogenic bladder Small bladder calculus versus mural calcification Pneumobilia. Correlate with any clinical history of biliary intervention Bilateral renal cysts. That on the left demonstrates a dependent intracystic calculus Multiple vertebral body compression fracture deformities. Age indeterminate although suspect old. Consider MRI. These are considered clinically relevant. This agrees with the preliminary interpretation provided overnight by [facility] teleradiology service. The CT scanner at [facility] is accredited by the [employer] and the scans are performed using protocols designed to limit radiation exposure to as low as reasonably achievable to attain images of sufficient resolution adequate for diagnostic evaluation.
[2017-10-28] MEDS: Dyna-Hex 2% Top Sol 2oz TOPIC SCH (20:00)
[2017-10-29] VITALS (28 sets, daily range): BP systolic 80–116; BP diastolic 35–61
[2017-10-29] MEDS: LORazepam Inj 2mg/ml 1ml IV PRN (05:01)
[2017-10-29 06:14] LABS: HEMATOCRIT 27.8 % (42.0-52.0); HEMOGLOBIN 9.7 G/DL (14.2-18.0); MEAN CORPUSCULAR VOLUME 96 FL (80-99); PLATELET COUNT 107 K/UL (150-450); RED BLOOD COUNT 2.89 M/UL (4.70-6.10); RED CELL DISTRIBUTION WIDTH 12.3 % (11.6-14.8); WHITE BLOOD COUNT 9.9 K/UL (4.8-10.8)
[2017-10-29 06:33] LABS: ANION GAP 8 mmol/L (5-15); BLOOD UREA NITROGEN 22 mg/dL (7-18); CALCIUM 7.2 MG/DL (8.5-10.1); CARBON DIOXIDE 25 MMOL/L (21-32); CHLORIDE 111 MMOL/L (98-107); CREATININE 1.1 MG/DL (0.55-1.30); SODIUM 144 MMOL/L (136-145)
[2017-10-29 06:43] LABS: POTASSIUM 2.7 MMOL/L (3.5-5.1)
--- NOTE | 2017-10-29 07:58 | Nephrology Progress Note ---
Assessment/Plan Assessment/Plan 1. RABIA- secondary to multifact ATN (pigment Neph + Isch ATN + Urinary retention) - tate , norepi + IVF's - resolved 2. Rhabdo- Pigment Nephropathy - IVF's 1/2 NS, CPK level pending - DCed Lipitor 3. Resp FL- intubated 4. Urinary Retention- tate 5. Hypotension/Sepsis- Abx, Norepi and IVF's prn - per ID 6. Hypokalemia- replaced today again Subjective Date patient seen: Oct 29, 2017 Time patient seen: 07:57 ROS Limited/Unobtainable: Yes Allergies: Coded Allergies: No Known Allergies (Unverified , 10/23/17) Subjective Patient remains intubated on the vent Objective Last 24 Hour Vital Signs Date Time Temp Pulse Resp B/P (MAP) Pulse Ox O2 Delivery O2 Flow Rate FiO2 10/29/17 07:28 100 19 24 10/29/17 05:20 96 22 30 10/29/17 05:00 105 18 99/54 (69) 100 10/29/17 04:00 Mechanical Ventilator 10/29/17 04:00 30 10/29/17 04:00 128 10/29/17 04:00 98.7 121 18 106/49 (68) 100 98.7 10/29/17 03:35 84 19 30 10/29/17 03:00 70 18 87/44 (58) 100 10/29/17 02:30 92/50 10/29/17 02:00 66 18 92/44 (60) 100 10/29/17 01:05 61 18 30 10/29/17 01:00 69 18 87/48 (61) 100 10/29/17 00:00 98.7 70 18 93/48 (63) 100 98.7 10/29/17 00:00 74 10/29/17 00:00 Mechanical Ventilator 10/28/17 23:10 68 18 30 10/28/17 23:00 72 18 96/46 (63) 100 10/28/17 22:00 72 18 95/46 (62) 100 10/28/17 21:15 72 18 30 10/28/17 21:00 72 18 93/46 (62) 100 10/28/17 20:09 68 18 30 10/28/17 20:00 98.8 76 18 98/53 (68) 100 98.8 10/28/17 20:00 72 10/28/17 20:00 Mechanical Ventilator 10/28/17 19:00 98.9 78 18 102/53 (69) 100 98.9 10/28/17 18:00 71 18 94/48 (63) 100 10/28/17 17:20 58 18 30 10/28/17 17:00 81 18 96/45 (62) 100 10/28/17 16:00 Mechanical Ventilator 10/28/17 16:00 78 10/28/17 16:00 74 18 95/49 (64) 100 10/28/17 15:30 63 18 30 10/28/17 15:00 57 18 83/44 (57) 100 10/28/17 14:13 99.5 10/28/17 14:00 58 18 87/44 (58) 100 10/28/17 13:22 56 18 30 10/28/17 13:14 100.0 10/28/17 13:00 65 18 90/46 (61) 100 10/28/17 12:00 54 18 108/47 (67) 100 10/28/17 12:00 72 10/28/17 12:00 Mechanical Ventilator 10/28/17 11:13 53 18 30 10/28/17 11:00 58 18 97/47 (64) 100 10/28/17 10:00 76 18 102/52 (69) 100 10/28/17 09:01 71 16 30 10/28/17 09:00 80 18 109/54 (72) 100 10/28/17 08:05 62 18 30 10/28/17 08:00 99.5 61 18 93/40 (57) 100 99.5 10/28/17 08:00 58 10/28/17 08:00 Mechanical Ventilator Intake and Output 10/28/17 10/29/17 19:00 07:00 Intake Total 1210 ml 1000 ml Output Total 650 ml 820 ml Balance 560 ml 180 ml Intake Oral 0 ml 0 ml IV Total 1210 ml 1000 ml Output Urine Total 650 ml 820 ml # Bowel Movements 3 3 Laboratory Tests 10/28/17 19:30: Stool Occult Blood [Pending] 10/29/17 05:00: White Blood Count 9.9, Red Blood Count 2.89L, Hemoglobin 9.7L, Hematocrit 27.8L , Mean Corpuscular Volume 96, Mean Corpuscular Hemoglobin 33.5H, Mean Corpuscular Hemoglobin Concent 34.8, Red Cell Distribution Width 12.3, Platelet Count 107L, Mean Platelet Volume 10.0, Neutrophils (%) (Auto) , Lymphocytes (%) (Auto) , Monocytes (%) (Auto) , Eosinophils (%) (Auto) , Basophils (%) (Auto) , Neutrophils % (Manual) [Pending], Lymphocytes % (Manual) [Pending], Platelet Estimate [Pending], Platelet Morphology [Pending], Sodium Level 144, Potassium Level 2.7*L, Chloride Level 111H, Carbon Dioxide Level 25, Anion Gap 8, Blood Urea Nitrogen 22H, Creatinine 1.1, Estimat Glomerular Filtration Rate > 60, Glucose Level 88, Calcium Level 7.2L Height (Feet): 5 Height (Inches): 1.00 Weight (Pounds): 106 General Appearance: no apparent distress EENT: PERRL/EOMI Neck: non-tender, normal alignment, supple Cardiovascular: normal rate, regular rhythm Respiratory/Chest: lungs clear, normal breath sounds Abdomen: normal bowel sounds, non tender, soft Edema: no edema noted Arm (L), no edema noted Arm (R), no edema noted Leg (L), no edema noted Leg (R), no edema noted Pedal (L), no edema noted Pedal (R), no edema noted Generalized Aiden Sidhu M.D. Oct 29, 2017 07:58
[2017-10-29] MEDS: Vancomycin 1gm/D5W 275ml IVPB SCH ×2 (10:19)
--- NOTE | 2017-10-29 10:28 | General Progress Note ---
Assessment/Plan Assessment/Plan IMPRESSION: 1. sepsis. 2. Acute on chronic encephalopathy. 3. Hypernatremia. 4. Acute renal failure. 5. Severe protein-calorie malnutrition. 6. Leukocytosis. 7. Anemia. 8. Down syndrome. 9. rhabdo 10. respiratory failure PLAN iv hydration monitor renal function and CK taper pressors as able antibiotics noted replace K noted cultures monitor ABG nutrition per dietary vent support- start wean NGT in place monitor sodium and correct hope to avoid trach medications/laboratory data/nursing notes/ICU care reviewed in detail note reviewed and edited care discussed with RN and RT ICU time spent 40 minutes Subjective ROS Limited/Unobtainable: Yes Allergies: Coded Allergies: No Known Allergies (Unverified , 10/23/17) Subjective bp labile on vent Objective Last 24 Hour Vital Signs Date Time Temp Pulse Resp B/P (MAP) Pulse Ox O2 Delivery O2 Flow Rate FiO2 10/29/17 09:18 91 19 24 10/29/17 07:28 100 19 24 10/29/17 07:00 80 18 94/40 (58) 100 10/29/17 06:00 80 18 98/56 (70) 100 10/29/17 05:20 96 22 30 10/29/17 05:00 105 18 99/54 (69) 100 10/29/17 04:00 Mechanical Ventilator 10/29/17 04:00 30 10/29/17 04:00 128 10/29/17 04:00 98.7 121 18 106/49 (68) 100 98.7 10/29/17 03:35 84 19 30 10/29/17 03:00 70 18 87/44 (58) 100 10/29/17 02:30 92/50 10/29/17 02:00 66 18 92/44 (60) 100 10/29/17 01:05 61 18 30 10/29/17 01:00 69 18 87/48 (61) 100 10/29/17 00:00 98.7 70 18 93/48 (63) 100 98.7 10/29/17 00:00 74 10/29/17 00:00 Mechanical Ventilator 10/28/17 23:10 68 18 30 10/28/17 23:00 72 18 96/46 (63) 100 10/28/17 22:00 72 18 95/46 (62) 100 10/28/17 21:15 72 18 30 7/16/18 21:00 72 18 93/46 (62) 100 10/28/17 20:09 68 18 30 10/28/17 20:00 98.8 76 18 98/53 (68) 100 98.8 10/28/17 20:00 72 10/28/17 20:00 Mechanical Ventilator 10/28/17 19:00 98.9 78 18 102/53 (69) 100 98.9 10/28/17 18:00 71 18 94/48 (63) 100 10/28/17 17:20 58 18 30 10/28/17 17:00 81 18 96/45 (62) 100 10/28/17 16:00 Mechanical Ventilator 10/28/17 16:00 78 10/28/17 16:00 74 18 95/49 (64) 100 10/28/17 15:30 63 18 30 10/28/17 15:00 57 18 83/44 (57) 100 10/28/17 14:13 99.5 10/28/17 14:00 58 18 87/44 (58) 100 10/28/17 13:22 56 18 30 10/28/17 13:14 100.0 10/28/17 13:00 65 18 90/46 (61) 100 10/28/17 12:00 54 18 108/47 (67) 100 10/28/17 12:00 72 10/28/17 12:00 Mechanical Ventilator 10/28/17 11:13 53 18 30 10/28/17 11:00 58 18 97/47 (64) 100 Intake and Output 10/28/17 10/29/17 19:00 07:00 Intake Total 1210 ml 1200 ml Output Total 650 ml 820 ml Balance 560 ml 380 ml Intake Oral 0 ml 0 ml IV Total 1210 ml 1200 ml Output Urine Total 650 ml 820 ml # Bowel Movements 3 3 Laboratory Tests 10/28/17 19:30: Stool Occult Blood Negative 10/29/17 05:00: White Blood Count 9.9, Red Blood Count 2.89L, Hemoglobin 9.7L, Hematocrit 27.8L , Mean Corpuscular Volume 96, Mean Corpuscular Hemoglobin 33.5H, Mean Corpuscular Hemoglobin Concent 34.8, Red Cell Distribution Width 12.3, Platelet Count 107L, Mean Platelet Volume 10.0, Neutrophils (%) (Auto) , Lymphocytes (%) (Auto) , Monocytes (%) (Auto) , Eosinophils (%) (Auto) , Basophils (%) (Auto) , Differential Total Cells Counted 100, Neutrophils % (Manual) 83H, Lymphocytes % (Manual) 8L, Monocytes % (Manual) 5, Eosinophils % (Manual) 1, Basophils % ( Manual) 0, Band Neutrophils 3, Platelet Estimate DecreasedL, Platelet Morphology Normal, Hypochromasia 1+, Sodium Level 144, Potassium Level 2.7*L, Chloride Level 111H, Carbon Dioxide Level 25, Anion Gap 8, Blood Urea Nitrogen 22H, Creatinine 1.1, Estimat Glomerular Filtration Rate > 60, Glucose Level 88, Calcium Level 7.2L Height (Feet): 5 Height (Inches): 1.00 Weight (Pounds): 106 Objective WDWN NAD and sedated on vent, ETT in place reduced breath sounds bilaterally with some rhonchi [id number] without MRG NABS nontender no HSM no CCE short stature more alert Guero Noel MD Oct 29, 2017 10:28
[2017-10-29] MEDS: Vitamin D 1000 IU Tab ORAL SCH (10:36)
--- NOTE | 2017-10-29 11:08 | Infectious Diseases Prog Note ---
Assessment/Plan Assessment/Plan antibiotics : vancomycin iv, ceftriaxone A 1. e.coli sepsis 2. staph aureus pneumonia 3. shock 4. colitis 5. respiratory failure 6. renal failure improving 7. Downs syndrome 8. leucocytosis improving P 1. d/c vancomycin iv, ceftriaxone 2. start ancef 3. will follow up cultures Subjective ROS Limited/Unobtainable: Yes Allergies: Coded Allergies: No Known Allergies (Unverified , 10/23/17) Objective Vital Signs Last 24 Hour Vital Signs Date Time Temp Pulse Resp B/P (MAP) Pulse Ox O2 Delivery O2 Flow Rate FiO2 10/29/17 10:00 92 18 86/44 (58) 100 10/29/17 09:30 24 10/29/17 09:18 91 19 24 10/29/17 09:00 81 18 80/35 (50) 100 10/29/17 08:00 30 10/29/17 08:00 71 18 90/44 (59) 100 10/29/17 07:28 100 19 24 10/29/17 07:00 80 18 94/40 (58) 100 10/29/17 06:00 80 18 98/56 (70) 100 10/29/17 05:20 96 22 30 10/29/17 05:00 105 18 99/54 (69) 100 10/29/17 04:00 Mechanical Ventilator 10/29/17 04:00 30 10/29/17 04:00 128 10/29/17 04:00 98.7 121 18 106/49 (68) 100 98.7 10/29/17 03:35 84 19 30 10/29/17 03:00 70 18 87/44 (58) 100 10/29/17 02:30 92/50 10/29/17 02:00 66 18 92/44 (60) 100 10/29/17 01:05 61 18 30 10/29/17 01:00 69 18 87/48 (61) 100 10/29/17 00:00 98.7 70 18 93/48 (63) 100 98.7 10/29/17 00:00 74 10/29/17 00:00 Mechanical Ventilator 10/28/17 23:10 68 18 30 10/28/17 23:00 72 18 96/46 (63) 100 10/28/17 22:00 72 18 95/46 (62) 100 10/28/17 21:15 72 18 30 10/28/17 21:00 72 18 93/46 (62) 100 10/28/17 20:09 68 18 30 10/28/17 20:00 98.8 76 18 98/53 (68) 100 98.8 10/28/17 20:00 72 10/28/17 20:00 Mechanical Ventilator 10/28/17 19:00 98.9 78 18 102/53 (69) 100 98.9 10/28/17 18:00 71 18 94/48 (63) 100 10/28/17 17:20 58 18 30 10/28/17 17:00 81 18 96/45 (62) 100 10/28/17 16:00 Mechanical Ventilator 10/28/17 16:00 78 10/28/17 16:00 74 18 95/49 (64) 100 10/28/17 15:30 63 18 30 10/28/17 15:00 57 18 83/44 (57) 100 10/28/17 14:13 99.5 10/28/17 14:00 58 18 87/44 (58) 100 10/28/17 13:22 56 18 30 10/28/17 13:14 100.0 10/28/17 13:00 65 18 90/46 (61) 100 10/28/17 12:00 54 18 108/47 (67) 100 10/28/17 12:00 72 10/28/17 12:00 Mechanical Ventilator 10/28/17 11:13 53 18 30 Height (Feet): 5 Height (Inches): 1.00 Weight (Pounds): 106 HEENT: other - intubated Respiratory/Chest: lungs clear Cardiovascular: normal rate, regular rhythm, no gallop/murmur Abdomen: soft, non tender Extremities: no edema, other Laboratory Tests Test 10/28/17 19:30 10/29/17 05:00 Stool Occult Blood Negative (NEGATIVE) White Blood Count 9.9 K/UL (4.8-10.8) Red Blood Count 2.89 M/UL (4.70-6.10) L Hemoglobin 9.7 G/DL (14.2-18.0) L Hematocrit 27.8 % (42.0-52.0) L Mean Corpuscular Volume 96 FL (80-99) Mean Corpuscular Hemoglobin 33.5 PG (27.0-31.0) H Mean Corpuscular Hemoglobin Concent 34.8 G/DL (32.0-36.0) Red Cell Distribution Width 12.3 % (11.6-14.8) Platelet Count 107 K/UL (150-450) L Mean Platelet Volume 10.0 FL (6.5-10.1) Neutrophils (%) (Auto) % (45.0-75.0) Lymphocytes (%) (Auto) % (20.0-45.0) Monocytes (%) (Auto) % (1.0-10.0) Eosinophils (%) (Auto) % (0.0-3.0) Basophils (%) (Auto) % (0.0-2.0) Differential Total Cells Counted 100 Neutrophils % (Manual) 83 % (45-75) H Lymphocytes % (Manual) 8 % (20-45) L Monocytes % (Manual) 5 % (1-10) Eosinophils % (Manual) 1 % (0-3) Basophils % (Manual) 0 % (0-2) Band Neutrophils 3 % (0-8) Platelet Estimate Decreased L Platelet Morphology Normal Hypochromasia 1+ Sodium Level 144 MMOL/L (136-145) Potassium Level 2.7 MMOL/L (3.5-5.1) *L Chloride Level 111 MMOL/L (98-107) H Carbon Dioxide Level 25 MMOL/L (21-32) Anion Gap 8 mmol/L (5-15) Blood Urea Nitrogen 22 mg/dL (7-18) H Creatinine 1.1 MG/DL (0.55-1.30) Estimat Glomerular Filtration Rate > 60 mL/min (>60) Glucose Level 88 MG/DL (74-106) Calcium Level 7.2 MG/DL (8.5-10.1) L Current Medications Medications (Trade) Dose Ordered Sig/Merlene Route PRN Reason Start Time Stop Time Status Last Admin Dose Admin Acetaminophen (Tylenol) 650 mg Q4H PRN ORAL Mild Pain/Temp > 100.5 10/24/17 02:15 11/23/17 02:14 10/28/17 13:14 Ceftriaxone Sodium 2 gm/ Dextrose 110 ml @ 220 mls/hr Q24H IVPB 10/27/17 12:30 11/03/17 12:29 10/28/17 13:16 Chlorhexidine Gluconate (Chandni-Hex 2%) 1 applic DAILY@2000 TOPIC 10/25/17 20:00 11/24/17 19:59 10/28/17 20:00 Docusate Sodium (Colace) 100 mg DAILY PRN ORAL Constipation 10/24/17 02:30 11/23/17 02:29 Lorazepam (Ativan 2mg/ml 1ml) 1 mg Q3HR PRN IV For Anxiety 10/26/17 22:45 11/02/17 22:44 10/29/17 05:01 Midodrine (Pro-Amatine) 5 mg THREE TIMES A DAY ORAL 10/29/17 13:00 11/28/17 12:59 Norepinephrine Bitartrate 4 mg/ Dextrose 250 ml @ 56.25 mls/ hr Q24H IV 10/25/17 02:30 11/24/17 02:14 10/27/17 17:50 Sodium Chloride 1,000 ml @ 100 mls/hr Q10H IV 10/27/17 08:00 11/26/17 07:59 10/29/17 10:20 Vancomycin HCl (Vanco rx to dose) 1 ea DAILY PRN MISC Per rx protocol 10/27/17 11:00 11/26/17 10:59 Vancomycin HCl 1 gm/Dextrose 275 ml @ 183.708 mls/hr Q24H IVPB 10/28/17 10:00 11/02/17 09:59 10/29/17 10:19 Vitamin D (Vitamin D) 1,000 intlu DAILY ORAL 10/24/17 09:00 11/23/17 08:59 10/29/17 10:36 DISHA QUESADA Oct 29, 2017 11:08
[2017-10-29] MEDS: ceFAZolin 2gm/50ml Premix 50 ML IV SCH ×2 (15:20→21:57)
[2017-10-29] MEDS: Dyna-Hex 2% Top Sol 2oz TOPIC SCH (20:10)
[2017-10-30] VITALS (46 sets, daily range): BP systolic 80–115; BP diastolic 35–85
[2017-10-30] MEDS: ceFAZolin 2gm/50ml Premix 50 ML IV SCH ×3 (05:45→21:44)
[2017-10-30 07:17] LABS: ANION GAP 9 mmol/L (5-15); BLOOD UREA NITROGEN 19 mg/dL (7-18); CALCIUM 7.2 MG/DL (8.5-10.1); CARBON DIOXIDE 25 MMOL/L (21-32); CHLORIDE 108 MMOL/L (98-107); CREATININE 1.1 MG/DL (0.55-1.30); POTASSIUM 2.8 MMOL/L (3.5-5.1); SODIUM 142 MMOL/L (136-145)
[2017-10-30 07:44] LABS: CREATINE KINASE 693 U/L (26-308)
--- NOTE | 2017-10-30 07:55 | Nephrology Progress Note ---
Assessment/Plan Assessment/Plan 1. RABIA- secondary to multifact ATN (pigment Neph + Isch ATN + Urinary retention) - tate , norepi. Decrease IVF's 2. Rhabdo- Pigment Nephropathy - resolved - DCed Lipitor 3. Resp FL- intubated 4. Urinary Retention- tate 5. Hypotension/Sepsis- Abx, Norepi and IVF's prn -Abx 6. Hypokalemia- replaced today Subjective Date patient seen: Oct 30, 2017 Time patient seen: 07:51 ROS Limited/Unobtainable: Yes Allergies: Coded Allergies: No Known Allergies (Unverified , 10/23/17) Subjective Patient remains intubated on vent. On norepi Objective Last 24 Hour Vital Signs Date Time Temp Pulse Resp B/P (MAP) Pulse Ox O2 Delivery O2 Flow Rate FiO2 10/30/17 07:12 67 18 24 10/30/17 07:00 94/48 10/30/17 07:00 70 18 94/48 (63) 98 10/30/17 06:00 70 18 102/54 (70) 100 10/30/17 06:00 98/50 10/30/17 05:30 70 18 111/60 (77) 100 10/30/17 05:30 70 18 103/64 (77) 100 10/30/17 05:00 70 18 110/50 (70) 100 10/30/17 05:00 108/49 10/30/17 04:40 67 10/30/17 04:36 78 22 24 10/30/17 04:30 75 18 108/49 (68) 100 10/30/17 04:00 64 18 112/60 (77) 100 10/30/17 04:00 Mechanical Ventilator 10/30/17 04:00 112/60 10/30/17 04:00 24 10/30/17 03:30 82 18 103/44 (63) 100 10/30/17 03:00 67 18 109/85 (93) 100 10/30/17 03:00 109/85 10/30/17 02:50 62 19 24 10/30/17 02:34 90/45 10/30/17 02:30 57 18 93/46 (62) 100 10/30/17 02:00 57 18 93/41 (58) 100 10/30/17 02:00 90/45 7/18/18 01:30 58 18 115/52 (73) 100 1818 01:00 92/40 1818 01:00 61 18 92/40 (57) 100 18 00:46 58 18 24 18/18 00:30 58 18 104/35 (58) 100 18 00:00 Mechanical Ventilator 10/30/17 00:00 97/42 10/30/17 00:00 98.3 55 18 92/43 (59) 100 98.3 18 00:00 24 18 00:00 56 18 23:30 63 18 115/52 (73) 100 10/29/17 23:23 63 18 24 10/29/17 23:00 92/51 18 23:00 60 18 92/51 (65) 100 10/29/17 22:30 57 18 103/49 (67) 100 18 22:00 61 18 104/51 (68) 100 18 22:00 104/51 18 21:30 66 18 110/48 (68) 100 18 21:00 108/47 18 21:00 65 18 108/47 (67) 100 10/29/17 20:55 63 18 24 18 20:30 63 18 116/50 (72) 100 18 20:00 24 10/29/17 20:00 Mechanical Ventilator 10/29/17 20:00 98.6 64 18 110/47 (68) 100 98.6 18 20:00 110/47 18 20:00 61 17/18 19:07 65 19 24 17/18 19:00 116/51 17/18 19:00 63 18 115/52 (73) 100 18 18:00 64 18 106/61 (76) 100 18 17:00 75 18 94/37 (56) 100 18 16:49 63 18 24 10/29/18 16:00 60 18 89/42 (58) 100 10/29/17 16:00 Mechanical Ventilator 10/29/17 16:00 59 18 16:00 24 10/29/17 15:00 65 18 91/38 (55) 100 10/29/17 14:35 85 26 24 10/29/17 14:00 62 18 88/42 (57) 100 10/29/17 13:09 67 19 24 10/29/17 13:00 74 18 91/42 (58) 100 10/29/17 12:00 Mechanical Ventilator 10/29/17 12:00 65 10/29/17 12:00 24 10/29/17 12:00 98.5 82 18 94/46 (62) 100 98.5 10/29/17 11:04 105 22 24 10/29/17 11:00 64 18 92/41 (58) 100 10/29/17 10:00 92 18 86/44 (58) 100 10/29/17 09:30 24 10/29/17 09:18 91 19 24 10/29/17 09:00 81 18 80/35 (50) 100 10/29/17 08:00 30 10/29/17 08:00 71 18 90/44 (59) 100 10/29/17 08:00 70 10/29/17 08:00 Mechanical Ventilator Intake and Output 10/29/17 10/30/17 19:00 07:00 Intake Total 1745 ml 1870.0 ml Output Total 825 ml 685 ml Balance 920 ml 1185.0 ml Intake Oral 0 ml IV Total 1625 ml 1420.0 ml Tube Feeding 120 ml 450 ml Output Urine Total 825 ml 685 ml # Bowel Movements 3 Laboratory Tests 10/30/17 06:17: Sodium Level 142, Potassium Level 2.8L, Chloride Level 108H, Carbon Dioxide Level 25, Anion Gap 9, Blood Urea Nitrogen 19H, Creatinine 1.1, Estimat Glomerular Filtration Rate > 60, Glucose Level 126H, Calcium Level 7.2L, Total Creatine Kinase 693H Height (Feet): 5 Height (Inches): 1.00 Weight (Pounds): 114 General Appearance: WD/WN, no apparent distress EENT: PERRL/EOMI Neck: non-tender, normal alignment Cardiovascular: normal peripheral pulses, normal rate, regular rhythm Respiratory/Chest: chest wall non-tender, lungs clear Abdomen: normal bowel sounds, non tender, soft Edema: no edema noted Arm (L), no edema noted Arm (R), no edema noted Leg (L), no edema noted Leg (R), no edema noted Pedal (L), no edema noted Pedal (R), no edema noted Generalized Aiden Sidhu M.D. Oct 30, 2017 07:55
[2017-10-30] MEDS: Vitamin D 1000 IU Tab ORAL SCH (08:16)
--- NOTE | 2017-10-30 12:33 | Infectious Diseases Prog Note ---
Assessment/Plan Assessment/Plan A; Sepsis/Septic shock on Levophed E. coli sepsis Pneumonia with staph aureus Acute renal failure resolved Rhabdomyolysis Acidosis Elevated transaminase Hypokalemia Anemia O; Continue Ancef Subjective ROS Limited/Unobtainable: Yes Respiratory: Reports: other - on weaning process Neurologic: Reports: other - more alert, on restraint Allergies: Coded Allergies: No Known Allergies (Unverified , 10/23/17) Objective Vital Signs Last 24 Hour Vital Signs Date Time Temp Pulse Resp B/P (MAP) Pulse Ox O2 Delivery O2 Flow Rate FiO2 10/30/17 12:00 98.4 75 18 89/41 (57) 96 98.4 10/30/17 12:00 80 10/30/17 11:30 80 18 95/47 (63) 97 10/30/17 11:00 87 18 95/47 (63) 97 10/30/17 10:46 78 20 24 10/30/17 10:30 72 18 105/55 (72) 97 10/30/17 10:00 68 18 92/37 (55) 97 10/30/17 09:33 63 20 24 10/30/17 09:30 65 17 86/41 (56) 98 10/30/17 09:00 66 18 101/50 (67) 97 10/30/17 08:30 70 18 108/54 (72) 96 10/30/17 08:00 74 10/30/17 08:00 Mechanical Ventilator 10/30/17 08:00 24 10/30/17 08:00 98.3 67 18 103/46 (65) 100 98.3 10/30/17 07:30 71 18 94/48 (63) 97 10/30/17 07:12 67 18 24 10/30/17 07:00 94/48 10/30/17 07:00 70 18 94/48 (63) 98 10/30/17 06:00 70 18 102/54 (70) 100 10/30/17 06:00 98/50 10/30/17 05:30 70 18 111/60 (77) 100 10/30/17 05:30 70 18 103/64 (77) 100 10/30/17 05:00 70 18 110/50 (70) 100 10/30/17 05:00 108/49 10/30/17 04:40 67 10/30/17 04:36 78 22 24 10/30/17 04:30 75 18 108/49 (68) 100 10/30/17 04:00 64 18 112/60 (77) 100 10/30/17 04:00 Mechanical Ventilator 10/30/17 04:00 112/60 10/30/17 04:00 24 10/30/17 03:30 82 18 103/44 (63) 100 10/30/17 03:00 67 18 109/85 (93) 100 10/30/17 03:00 109/85 10/30/17 02:50 62 19 24 10/30/17 02:34 90/45 10/30/17 02:30 57 18 93/46 (62) 100 10/30/17 02:00 57 18 93/41 (58) 100 10/30/17 02:00 90/45 10/30/17 01:30 58 18 115/52 (73) 100 10/30/17 01:00 92/40 10/30/17 01:00 61 18 92/40 (57) 100 10/30/17 00:46 58 18 24 10/30/17 00:30 58 18 104/35 (58) 100 10/30/17 00:00 Mechanical Ventilator 10/30/17 00:00 97/42 10/30/17 00:00 98.3 55 18 92/43 (59) 100 98.3 10/30/17 00:00 24 10/30/17 00:00 56 18 23:30 63 18 115/52 (73) 100 10/29/17 23:23 63 18 24 18 23:00 92/51 18 23:00 60 18 92/51 (65) 100 18 22:30 57 18 103/49 (67) 100 18 22:00 61 18 104/51 (68) 100 18 22:00 104/51 10/29/18 21:30 66 18 110/48 (68) 100 18 21:00 108/47 18 21:00 65 18 108/47 (67) 100 18 20:55 63 18 24 18 20:30 63 18 116/50 (72) 100 18 20:00 24 10/29/17 20:00 Mechanical Ventilator 10/29/17 20:00 98.6 64 18 110/47 (68) 100 98.6 10/29/17 20:00 110/47 10/29/17 20:00 61 18 19:07 65 19 24 10/29/17 19:00 116/51 10/29/17 19:00 63 18 115/52 (73) 100 10/29/17 18:00 64 18 106/61 (76) 100 10/29/17 17:00 75 18 94/37 (56) 100 10/29/17 16:49 63 18 24 10/29/17 16:00 60 18 89/42 (58) 100 10/29/17 16:00 Mechanical Ventilator 10/29/17 16:00 59 10/29/17 16:00 24 10/29/17 15:00 65 18 91/38 (55) 100 10/29/17 14:35 85 26 24 10/29/17 14:00 62 18 88/42 (57) 100 10/29/17 13:09 67 19 24 10/29/17 13:00 74 18 91/42 (58) 100 Height (Feet): 5 Height (Inches): 1.00 Weight (Pounds): 114 HEENT: mucous membranes moist Respiratory/Chest: lungs clear, other - on ventilator Cardiovascular: normal rate Abdomen: soft, non tender, other - NG tube feeding Extremities: no edema Laboratory Tests Test 10/30/17 06:17 Sodium Level 142 MMOL/L (136-145) Potassium Level 2.8 MMOL/L (3.5-5.1) L Chloride Level 108 MMOL/L (98-107) H Carbon Dioxide Level 25 MMOL/L (21-32) Anion Gap 9 mmol/L (5-15) Blood Urea Nitrogen 19 mg/dL (7-18) H Creatinine 1.1 MG/DL (0.55-1.30) Estimat Glomerular Filtration Rate > 60 mL/min (>60) Glucose Level 126 MG/DL (74-106) H Calcium Level 7.2 MG/DL (8.5-10.1) L Total Creatine Kinase 693 U/L (26-308) H Current Medications Medications (Trade) Dose Ordered Sig/Merlene Route PRN Reason Start Time Stop Time Status Last Admin Dose Admin Acetaminophen (Tylenol) 650 mg Q4H PRN ORAL Mild Pain/Temp > 100.5 10/24/17 02:15 11/23/17 02:14 10/28/17 13:14 Cefazolin Sodium 50 ml @ 100 mls/hr Q8HR IV 10/29/17 14:00 11/05/17 13:59 10/30/17 05:45 Chlorhexidine Gluconate (Chandni-Hex 2%) 1 applic DAILY@2000 TOPIC 10/25/17 20:00 11/24/17 19:59 10/29/17 20:10 Docusate Sodium (Colace) 100 mg DAILY PRN ORAL Constipation 10/24/17 02:30 11/23/17 02:29 Lorazepam (Ativan 2mg/ml 1ml) 1 mg Q3HR PRN IV For Anxiety 10/26/17 22:45 11/02/17 22:44 10/29/17 05:01 Midodrine (Pro-Amatine) 5 mg THREE TIMES A DAY ORAL 10/29/17 13:00 11/28/17 12:59 10/30/17 08:16 Norepinephrine Bitartrate 4 mg/ Dextrose 250 ml @ 56.25 mls/ hr Q24H IV 10/25/17 02:30 11/24/17 02:14 10/30/17 02:34 Sodium Chloride 1,000 ml @ 50 mls/hr Q20H IV 10/30/17 09:30 11/26/17 07:59 10/30/17 10:21 Vitamin D (Vitamin D) 1,000 intlu DAILY ORAL 10/24/17 09:00 11/23/17 08:59 10/30/17 08:16 Ryan Fritz MD Oct 30, 2017 12:33
[2017-10-30] MEDS: Dyna-Hex 2% Top Sol 2oz TOPIC SCH (20:21)
[2017-10-30] MEDS: DOPamine 400mg/250ml 250 ML IV SCH (20:46)
--- NOTE | 2017-10-30 23:19 | Pulmonolgy Critical Care Note ---
Critical Care - Asmt/Plan Assessment/Plan: Assessment/Plan IMPRESSION: 1. sepsis. 2. Acute on chronic encephalopathy. 3. Hypernatremia. 4. Acute renal failure. 5. Severe protein-calorie malnutrition. 6. Leukocytosis. 7. Anemia. 8. Down syndrome. 9. rhabdo 10. respiratory failure, pneumonia/ARDS on Ancef PLAN iv hydration, Dopamine gtt monitor renal function and CK taper pressors as able antibiotics noted replace K noted cultures monitor ABG nutrition per dietary vent support- start wean NGT in place monitor sodium and correct hope to avoid trach medications/laboratory data/nursing notes/ICU care reviewed in detail note reviewed and edited care discussed with RN and RT ICU time spent 40 minutes Subjective ROS Limited/Unobtainable: Yes Allergies: Coded Allergies: No Known Allergies (Unverified , 10/23/17) Subjective bp labile on vent Objective Last 24 Hour Vital Signs Date Time Temp Pulse Resp B/P (MAP) Pulse Ox O2 Delivery O2 Flow Rate FiO2 10/29/17 09:18 91 19 24 10/29/17 07:28 100 19 24 10/29/17 07:00 80 18 94/40 (58) 100 10/29/17 06:00 80 18 98/56 (70) 100 10/29/17 05:20 96 22 30 10/29/17 05:00 105 18 99/54 (69) 100 10/29/17 04:00 Mechanical Ventilator 10/29/17 04:00 30 10/29/17 04:00 128 10/29/17 04:00 98.7 121 18 106/49 (68) 100 98.7 10/29/17 03:35 84 19 30 10/29/17 03:00 70 18 87/44 (58) 100 10/29/17 02:30 92/50 10/29/17 02:00 66 18 92/44 (60) 100 10/29/17 01:05 61 18 30 10/29/17 01:00 69 18 87/48 (61) 100 10/29/17 00:00 98.7 70 18 93/48 (63) 100 98.7 10/29/17 00:00 74 10/29/17 00:00 Mechanical Ventilator 10/28/17 23:10 68 18 30 10/28/17 23:00 72 18 96/46 (63) 100 10/28/17 22:00 72 18 95/46 (62) 100 10/28/17 21:15 72 18 30 10/28/17 21:00 72 18 93/46 (62) 100 10/28/17 20:09 68 18 30 10/28/17 20:00 98.8 76 18 98/53 (68) 100 98.8 10/28/17 20:00 72 10/28/17 20:00 Mechanical Ventilator 10/28/17 19:00 98.9 78 18 102/53 (69) 100 98.9 10/28/17 18:00 71 18 94/48 (63) 100 10/28/17 17:20 58 18 30 10/28/17 17:00 81 18 96/45 (62) 100 10/28/17 16:00 Mechanical Ventilator 10/28/17 16:00 78 10/28/17 16:00 74 18 95/49 (64) 100 10/28/17 15:30 63 18 30 10/28/17 15:00 57 18 83/44 (57) 100 10/28/17 14:13 99.5 10/28/17 14:00 58 18 87/44 (58) 100 10/28/17 13:22 56 18 30 10/28/17 13:14 100.0 10/28/17 13:00 65 18 90/46 (61) 100 10/28/17 12:00 54 18 108/47 (67) 100 10/28/17 12:00 72 10/28/17 12:00 Mechanical Ventilator 10/28/17 11:13 53 18 30 10/28/17 11:00 58 18 97/47 (64) 100 Intake and Output 10/28/17 10/29/17 19:00 07:00 Intake Total 1210 ml 1200 ml Output Total 650 ml 820 ml Balance 560 ml 380 ml Intake Oral 0 ml 0 ml IV Total 1210 ml 1200 ml Output Urine Total 650 ml 820 ml # Bowel Movements 3 3 Laboratory Tests 10/28/17 19:30: Stool Occult Blood Negative 10/29/17 05:00: White Blood Count 9.9, Red Blood Count 2.89L, Hemoglobin 9.7L, Hematocrit 27.8L , Mean Corpuscular Volume 96, Mean Corpuscular Hemoglobin 33.5H, Mean Corpuscular Hemoglobin Concent 34.8, Red Cell Distribution Width 12.3, Platelet Count 107L, Mean Platelet Volume 10.0, Neutrophils (%) (Auto) , Lymphocytes (%) (Auto) , Monocytes (%) (Auto) , Eosinophils (%) (Auto) , Basophils (%) (Auto) , Differential Total Cells Counted 100, Neutrophils % (Manual) 83H, Lymphocytes % (Manual) 8L, Monocytes % (Manual) 5, Eosinophils % (Manual) 1, Basophils % ( Manual) 0, Band Neutrophils 3, Platelet Estimate DecreasedL, Platelet Morphology Normal, Hypochromasia 1+, Sodium Level 144, Potassium Level 2.7*L, Chloride Level 111H, Carbon Dioxide Level 25, Anion Gap 8, Blood Urea Nitrogen 22H, Creatinine 1.1, Estimat Glomerular Filtration Rate > 60, Glucose Level 88, Calcium Level 7.2L Height (Feet): 5 Height (Inches): 1.00 Weight (Pounds): 106 Objective WDWN NAD and sedated on vent, ETT in place, did not tolerate weaning today reduced breath sounds bilaterally with some rhonchi [id number] without MRG NABS nontender no HSM no CCE short stature more alert Critical Care - Objective Last 24 Hour Vital Signs Date Time Temp Pulse Resp B/P (MAP) Pulse Ox O2 Delivery O2 Flow Rate FiO2 10/30/17 22:58 68 18 24 10/30/17 22:00 71 17 101/55 (70) 91 10/30/17 21:30 54 18 102/40 (60) 93 10/30/17 21:01 63 18 24 10/30/17 21:00 57 18 80/41 (54) 97 10/30/17 20:46 95/42 10/30/17 20:30 49 18 95/42 (59) 94 10/30/17 20:00 Mechanical Ventilator 10/30/17 20:00 54 16 87/43 (58) 99 10/30/17 20:00 24 10/30/17 20:00 86 10/30/17 19:30 98.3 59 17 99/60 (73) 99 98.3 10/30/17 19:05 64 18 24 10/30/17 19:00 55 18 95/45 (62) 98 10/30/17 18:30 50 18 90/46 (61) 98 7/18/18 18:00 58 18 104/54 (71) 96 7/18/18 17:30 49 18 95/47 (63) 96 7/18/18 17:01 63 18 24 7/18/18 17:00 65 18 105/49 (67) 99 7/18/18 16:30 68 18 87/45 (59) 99 7/18/18 16:30 87/40 718/18 16:00 68 7/18/18 16:00 97.9 66 18 86/39 (55) 99 97.9 7/18/18 15:30 67 18 97/44 (61) 98 7/18/18 15:13 66 18 24 7/18/18 15:00 61 18 96/48 (64) 99 18/18 15:00 Mechanical Ventilator 10/30/17 14:30 106/63 10/30/18 14:23 24 10/30/18 14:18 65 18 24 10/30/18 14:00 67 20 101/54 (70) 100 10/30/18 13:30 64 18 102/60 (74) 98 18/18 13:00 72 19 113/59 (77) 100 10/30/18 12:50 73 18 24 10/30/18 12:30 76 18 85/37 (53) 98 18 12:00 Mechanical Ventilator 10/30/17 12:00 98.4 75 18 89/41 (57) 96 98.4 18 12:00 80 10/30/18 12:00 24 18 11:30 80 18 95/47 (63) 97 18/18 11:00 87 18 95/47 (63) 97 18/18 10:46 78 20 24 718/18 10:30 72 18 105/55 (72) 97 18/18 10:00 68 18 92/37 (55) 97 18/18 09:33 63 20 24 718/18 09:30 65 17 86/41 (56) 98 18/18 09:00 66 18 101/50 (67) 97 18 08:30 70 18 108/54 (72) 96 18 08:00 74 18 08:00 Mechanical Ventilator 18 08:00 24 10/30/17 08:00 98.3 67 18 103/46 (65) 100 98.3 18 07:30 71 18 94/48 (63) 97 1818 07:12 67 18 24 718 07:00 94/48 718 07:00 70 18 94/48 (63) 98 18 06:00 70 18 102/54 (70) 100 10/30/17 06:00 98/50 18 05:30 70 18 111/60 (77) 100 18 05:30 70 18 103/64 (77) 100 10/30/17 05:00 70 18 110/50 (70) 100 10/30/17 05:00 108/49 10/30/17 04:40 67 10/30/17 04:36 78 22 24 10/30/17 04:30 75 18 108/49 (68) 100 10/30/17 04:00 64 18 112/60 (77) 100 10/30/17 04:00 Mechanical Ventilator 10/30/17 04:00 112/60 10/30/17 04:00 24 10/30/17 03:30 82 18 103/44 (63) 100 10/30/17 03:00 67 18 109/85 (93) 100 10/30/17 03:00 109/85 10/30/17 02:50 62 19 24 10/30/17 02:34 90/45 10/30/17 02:30 57 18 93/46 (62) 100 10/30/17 02:00 57 18 93/41 (58) 100 10/30/17 02:00 90/45 18 01:30 58 18 115/52 (73) 100 10/30/17 01:00 92/40 18 01:00 61 18 92/40 (57) 100 10/30/17 00:46 58 18 24 10/30/17 00:30 58 18 104/35 (58) 100 10/30/17 00:00 Mechanical Ventilator 10/30/17 00:00 97/42 10/30/17 00:00 98.3 55 18 92/43 (59) 100 98.3 10/30/17 00:00 24 10/30/17 00:00 56 10/29/17 23:30 63 18 115/52 (73) 100 10/29/17 23:23 63 18 24 Critical Care - Subjective ROS Limited/Unobtainable: Yes Condition: improving IV Access: central EKG Rhythm: Sinus Bradycardia FI02: 24 Vent Support Breath Rate: 18 Vent Support Mode: AC Vent Tidal Volume: 500 Sputum Amount: Scant PEEP: 5.0 PIP: 34 Tube Feeding Amount: 45 I&O: Intake and Output 10/29/17 10/30/17 19:00 07:00 Intake Total 1745 ml 1870.0 ml Output Total 825 ml 685 ml Balance 920 ml 1185.0 ml Intake Oral 0 ml IV Total 1625 ml 1420.0 ml Tube Feeding 120 ml 450 ml Output Urine Total 825 ml 685 ml # Bowel Movements 3 ET-Tube: 7.0 ET Position: 22 Sung Newman MD Oct 30, 2017 23:19
[2017-10-31] VITALS (47 sets, daily range): BP systolic 81–99; BP diastolic 37–59
[2017-10-31] MEDS: ceFAZolin 2gm/50ml Premix 50 ML IV SCH ×3 (05:33→21:47)
[2017-10-31 06:36] LABS: ANION GAP 5 mmol/L (5-15); BLOOD UREA NITROGEN 20 mg/dL (7-18); CALCIUM 7.8 MG/DL (8.5-10.1); CARBON DIOXIDE 27 MMOL/L (21-32); CHLORIDE 111 MMOL/L (98-107); CREATININE 1.2 MG/DL (0.55-1.30); POTASSIUM 3.2 MMOL/L (3.5-5.1); SODIUM 143 MMOL/L (136-145)
--- NOTE | 2017-10-31 08:00 | Nephrology Progress Note ---
Assessment/Plan Assessment/Plan 1. RABIA- secondary to multifact ATN (pigment Neph + Isch ATN + Urinary retention) - Dopa and IVFs - Cr stable at 1.2 2. Rhabdo- Pigment Nephropathy - resolved 3. Resp FL- intubated 4. Urinary Retention- tate 5. Hypotension/Sepsis- Abx, Dopa and IVF's prn -Abx 6. Hypokalemia- replaced today Subjective Date patient seen: Oct 31, 2017 Time patient seen: 07:59 ROS Limited/Unobtainable: Yes Allergies: Coded Allergies: No Known Allergies (Unverified , 10/23/17) Subjective Patient remains intubated on dopamine Objective Last 24 Hour Vital Signs Date Time Temp Pulse Resp B/P (MAP) Pulse Ox O2 Delivery O2 Flow Rate FiO2 10/31/17 07:29 76 18 24 10/31/17 07:00 78 16 94/44 (61) 99 10/31/17 06:30 74 14 91/42 (58) 98 10/31/17 06:00 70 14 95/37 (56) 98 10/31/17 05:45 24 10/31/17 05:43 75 15 24 10/31/17 05:30 65 16 91/43 (59) 99 10/31/17 05:15 66 16 24 10/31/17 05:00 61 16 93/39 (57) 99 10/31/17 04:30 64 16 92/40 (57) 99 10/31/17 04:00 Mechanical Ventilator 10/31/17 04:00 69 16 87/38 (54) 97 10/31/17 04:00 24 10/31/17 04:00 86 10/31/17 03:30 98.3 79 17 95/40 (58) 97 98.3 10/31/17 03:10 72 16 24 10/31/17 03:00 70 14 97/46 (63) 98 10/31/17 02:30 70 15 90/45 (60) 98 10/31/17 02:00 76 15 85/44 (58) 98 10/31/17 01:30 79 15 89/45 (60) 98 10/31/17 01:07 74 17 24 10/31/17 01:00 63 16 88/41 (57) 100 10/31/17 00:30 60 16 90/41 (57) 100 7/19/18 00:00 Mechanical Ventilator 719/18 00:00 24 7/19/18 00:00 61 7/19/18 00:00 62 16 87/39 (55) 99 7/18/18 23:30 98.1 65 16 87/39 (55) 97 98.1 7/18/18 23:00 64 18 102/46 (64) 100 7/18/18 22:58 68 18 24 7/18/18 22:30 63 18 100/42 (61) 91 7/18/18 22:00 71 17 101/55 (70) 91 7/18/18 21:30 54 18 102/40 (60) 93 7/18/18 21:01 63 18 24 7/18/18 21:00 57 18 80/41 (54) 97 /18/18 20:46 95/42 7/18/18 20:30 49 18 95/42 (59) 94 7/18/18 20:00 Mechanical Ventilator 18 20:00 54 16 87/43 (58) 99 7/18/18 20:00 24 7/18/18 20:00 86 7/18/18 19:30 98.3 59 17 99/60 (73) 99 98.3 7/18/18 19:05 64 18 24 7/18/18 19:00 55 18 95/45 (62) 98 7/18/18 18:30 50 18 90/46 (61) 98 7/18/18 18:00 58 18 104/54 (71) 96 7/18/18 17:30 49 18 95/47 (63) 96 7/18/18 17:01 63 18 24 7/18/18 17:00 65 18 105/49 (67) 99 7/18/18 16:30 68 18 87/45 (59) 99 7/18/18 16:30 87/40 7/18/18 16:00 68 7/18/18 16:00 97.9 66 18 86/39 (55) 99 97.9 7/18/18 15:30 67 18 97/44 (61) 98 7/18/18 15:13 66 18 24 7/18/18 15:00 61 18 96/48 (64) 99 7/18/18 15:00 Mechanical Ventilator /18/18 14:30 106/63 7/18/18 14:23 24 10/30/17 14:18 65 18 24 10/30/17 14:00 67 20 101/54 (70) 100 10/30/17 13:30 64 18 102/60 (74) 98 10/30/17 13:00 72 19 113/59 (77) 100 10/30/17 12:50 73 18 24 10/30/17 12:30 76 18 85/37 (53) 98 10/30/17 12:00 Mechanical Ventilator 10/30/17 12:00 98.4 75 18 89/41 (57) 96 98.4 10/30/17 12:00 80 10/30/17 12:00 24 10/30/17 11:30 80 18 95/47 (63) 97 10/30/17 11:00 87 18 95/47 (63) 97 10/30/17 10:46 78 20 24 10/30/17 10:30 72 18 105/55 (72) 97 10/30/17 10:00 68 18 92/37 (55) 97 10/30/17 09:33 63 20 24 10/30/17 09:30 65 17 86/41 (56) 98 10/30/17 09:00 66 18 101/50 (67) 97 10/30/17 08:30 70 18 108/54 (72) 96 10/30/17 08:00 74 10/30/17 08:00 Mechanical Ventilator 10/30/17 08:00 24 10/30/17 08:00 98.3 67 18 103/46 (65) 100 98.3 Intake and Output 10/30/17 10/31/17 19:00 07:00 Intake Total 1418.08 ml 1238.497 ml Output Total 1445 ml 705 ml Balance -26.92 ml 533.497 ml Free Water 200 ml IV Total 618.08 ml 743.497 ml Tube Feeding 540 ml 495 ml Other 60 ml Output Urine Total 1445 ml 705 ml # Bowel Movements 1 1 Laboratory Tests 10/30/17 13:00: Potassium Level 3.3L 10/31/17 05:11: Potassium Level 3.2L, Sodium Level 143, Chloride Level 111H, Carbon Dioxide Level 27, Anion Gap 5, Blood Urea Nitrogen 20H, Creatinine 1.2, Estimat Glomerular Filtration Rate > 60, Glucose Level 148H, Calcium Level 7.8L 10/31/17 05:35: Arterial Blood pH 7.510H, Arterial Blood Partial Pressure CO2 30.8L, Arterial Blood Partial Pressure O2 72.5L, Arterial Blood HCO3 24.0, Arterial Blood Oxygen Saturation 94.6, Arterial Blood Base Excess 1.3, Srinath Test Positive Height (Feet): 5 Height (Inches): 1.00 Weight (Pounds): 107 General Appearance: WD/WN, no apparent distress EENT: normal ENT inspection Neck: non-tender, normal alignment, supple Cardiovascular: normal peripheral pulses, normal rate Respiratory/Chest: lungs clear Edema: no edema noted Arm (L), no edema noted Arm (R), no edema noted Leg (L), no edema noted Leg (R), no edema noted Pedal (L), no edema noted Pedal (R), no edema noted Generalized Aiden Sidhu M.D. Oct 31, 2017 08:00
[2017-10-31] MEDS: Vitamin D 1000 IU Tab ORAL SCH (09:06)
[2017-10-31] MEDS: 1/2NS w/KCl 20mEq 1000ml 1,000 ML IV SCH (09:12)
[2017-10-31] MEDS ORDERED: Lidocaine 1% Plain 30 ml INJ PRN (10:30)
[2017-10-31] MEDS ORDERED: Heparin 2000 units/Ns 1000ml INJ PRN (10:30)
--- NOTE | 2017-10-31 11:51 | Infectious Diseases Prog Note ---
Assessment/Plan Assessment/Plan A; Sepsis/Septic shock on Levophed E. coli sepsis Pneumonia with staph aureus Acute renal failure resolved Rhabdomyolysis Acidosis Elevated transaminase Hypokalemia Anemia O; Continue Ancef Subjective ROS Limited/Unobtainable: Yes Respiratory: Reports: other - extubated today Neurologic: Reports: confusion, other - on restraint Allergies: Coded Allergies: No Known Allergies (Unverified , 10/23/17) Objective Vital Signs Last 24 Hour Vital Signs Date Time Temp Pulse Resp B/P (MAP) Pulse Ox O2 Delivery O2 Flow Rate FiO2 10/31/17 11:00 Nasal Cannula 4.0 36 10/31/17 11:00 90 23 95/51 (66) 98 10/31/17 11:00 Nasal Cannula 3.0 32 10/31/17 10:30 73 17 96/46 (63) 99 10/31/17 10:00 78 19 99/46 (63) 99 10/31/17 09:30 80 18 97/47 (64) 99 10/31/17 09:00 83 19 95/42 (59) 99 10/31/17 08:30 78 17 92/43 (59) 99 10/31/17 08:30 80 18 24 10/31/17 08:00 82 10/31/17 08:00 Mechanical Ventilator 10/31/17 08:00 98.3 71 17 90/37 (54) 99 98.3 10/31/17 07:30 81 19 88/41 (57) 99 10/31/17 07:29 76 18 24 10/31/17 07:00 78 16 94/44 (61) 99 10/31/17 06:30 74 14 91/42 (58) 98 10/31/17 06:00 70 14 95/37 (56) 98 10/31/17 05:45 24 10/31/17 05:43 75 15 24 10/31/17 05:30 65 16 91/43 (59) 99 10/31/17 05:15 66 16 24 10/31/17 05:00 61 16 93/39 (57) 99 10/31/17 04:30 64 16 92/40 (57) 99 10/31/17 04:00 Mechanical Ventilator 10/31/17 04:00 69 16 87/38 (54) 97 10/31/17 04:00 24 10/31/17 04:00 86 7/19/18 03:30 98.3 79 17 95/40 (58) 97 98.3 18 03:10 72 16 24 10/31/17 03:00 70 14 97/46 (63) 98 18 02:30 70 15 90/45 (60) 98 10/31/17 02:00 76 15 85/44 (58) 98 18 01:30 79 15 89/45 (60) 98 18 01:07 74 17 24 10/31/17 01:00 63 16 88/41 (57) 100 10/31/17 00:30 60 16 90/41 (57) 100 10/31/17 00:00 Mechanical Ventilator 10/31/17 00:00 24 10/31/17 00:00 61 10/31/17 00:00 62 16 87/39 (55) 99 10/30/17 23:30 98.1 65 16 87/39 (55) 97 98.1 10/30/17 23:00 64 18 102/46 (64) 100 18 22:58 68 18 24 10/30/17 22:30 63 18 100/42 (61) 91 18 22:00 71 17 101/55 (70) 91 18 21:30 54 18 102/40 (60) 93 18 21:01 63 18 24 18 21:00 57 18 80/41 (54) 97 18 20:46 95/42 18 20:30 49 18 95/42 (59) 94 18 20:00 Mechanical Ventilator 10/30/17 20:00 54 16 87/43 (58) 99 18 20:00 24 18 20:00 86 18 19:30 98.3 59 17 99/60 (73) 99 98.3 18/18 19:05 64 18 24 18/18 19:00 55 18 95/45 (62) 98 18/18 18:30 50 18 90/46 (61) 98 18 18:00 58 18 104/54 (71) 96 1818 17:30 49 18 95/47 (63) 96 10/30/17 17:01 63 18 24 10/30/17 17:00 65 18 105/49 (67) 99 10/30/17 16:30 68 18 87/45 (59) 99 10/30/17 16:30 87/40 10/30/17 16:00 68 10/30/17 16:00 97.9 66 18 86/39 (55) 99 97.9 10/30/17 15:30 67 18 97/44 (61) 98 10/30/17 15:13 66 18 24 10/30/17 15:00 61 18 96/48 (64) 99 10/30/17 15:00 Mechanical Ventilator 10/30/17 14:30 106/63 10/30/17 14:23 24 10/30/17 14:18 65 18 24 10/30/17 14:00 67 20 101/54 (70) 100 10/30/17 13:30 64 18 102/60 (74) 98 10/30/17 13:00 72 19 113/59 (77) 100 10/30/17 12:50 73 18 24 10/30/17 12:30 76 18 85/37 (53) 98 10/30/17 12:00 Mechanical Ventilator 10/30/17 12:00 98.4 75 18 89/41 (57) 96 98.4 10/30/17 12:00 80 10/30/17 12:00 24 Height (Feet): 5 Height (Inches): 1.00 Weight (Pounds): 107 General Appearance: no acute distress HEENT: mucous membranes moist Respiratory/Chest: lungs clear Cardiovascular: normal rate Abdomen: soft, non tender, other - NG tube feeding Extremities: no edema Neurologic/Psychiatric: disoriented, aphasia Microbiology Date/Time Source Procedure Growth Status 10/30/17 14:00 Stool Clostridium difficile Toxin Assay - Final Complete Laboratory Tests Test 10/30/17 13:00 10/31/17 05:11 10/31/17 05:35 10/31/17 09:45 Potassium Level 3.3 MMOL/L (3.5-5.1) L 3.2 MMOL/L (3.5-5.1) L Sodium Level 143 MMOL/L (136-145) Chloride Level 111 MMOL/L (98-107) H Carbon Dioxide Level 27 MMOL/L (21-32) Anion Gap 5 mmol/L (5-15) Blood Urea Nitrogen 20 mg/dL (7-18) H Creatinine 1.2 MG/DL (0.55-1.30) Estimat Glomerular Filtration Rate > 60 mL/min (>60) Glucose Level 148 MG/DL (74-106) H Calcium Level 7.8 MG/DL (8.5-10.1) L Arterial Blood pH 7.510 (7.350-7.450) 7.431 (7.350-7.450) Arterial Blood Partial Pressure CO2 30.8 mmHg (35.0-45.0) L 36.6 mmHg (35.0-45.0) Arterial Blood Partial Pressure O2 72.5 mmHg (75.0-100.0) L 71.7 mmHg (75.0-100.0) L Arterial Blood HCO3 24.0 mmol/L (22.0-26.0) 23.8 mmol/L (22.0-26.0) Arterial Blood Oxygen Saturation 94.6 % (92.0-98.0) 93.5 % (92.0-98.0) Arterial Blood Base Excess 1.3 -0.3 Srinath Test Positive Positive Current Medications Medications (Trade) Dose Ordered Sig/Merlene Route PRN Reason Start Time Stop Time Status Last Admin Dose Admin Acetaminophen (Tylenol) 650 mg Q4H PRN ORAL Mild Pain/Temp > 100.5 10/24/17 02:15 11/23/17 02:14 10/28/17 13:14 Cefazolin Sodium 50 ml @ 100 mls/hr Q8HR IV 10/29/17 14:00 11/05/17 13:59 10/31/17 05:33 Chlorhexidine Gluconate (Chandni-Hex 2%) 1 applic DAILY@1999 TOPIC 10/25/17 20:00 11/24/17 19:59 10/30/17 20:21 Chlorhexidine Gluconate (Chandni-Hex 2%) 1 applic DAILY@1999 TOPIC 10/31/17 20:00 11/30/17 19:59 Docusate Sodium (Colace) 100 mg DAILY PRN ORAL Constipation 10/24/17 02:30 11/23/17 02:29 Dopamine HCl/ Dextrose 250 ml @ 0 mls/hr Q24H IV 10/30/17 20:45 11/29/17 20:44 10/30/17 20:46 Heparin Sodium/ Sodium Chloride (Heparin 2000 units/Ns 1000ml premix) 2,000 unit ONCE PRN INJ for picc line placement 10/31/17 10:30 11/02/17 10:29 Lidocaine HCl (Xylocaine 1% 30ml) 30 ml ONCE PRN INJ for picc line placement 10/31/17 10:30 11/02/17 10:29 Lorazepam (Ativan 2mg/ml 1ml) 1 mg Q3HR PRN IV For Anxiety 10/26/17 22:45 11/02/17 22:44 10/29/17 05:01 Midodrine (Pro-Amatine) 10 mg THREE TIMES A DAY ORAL 10/31/17 13:00 11/30/17 12:59 Potassium Chloride 100 ml @ 50 mls/hr Q2H IVPB 10/31/17 08:00 10/31/17 11:59 10/31/17 11:26 Sodium 1,000 ml @ 50 mls/hr Q20H IV 10/31/17 09:00 11/30/17 08:59 10/31/17 09:12 Vitamin D (Vitamin D) 1,000 intlu DAILY ORAL 10/24/17 09:00 11/23/17 08:59 10/31/17 09:06 Ryan Fritz MD Oct 31, 2017 11:51
[2017-10-31] MEDS ORDERED: Midodrine 10mg tab ORAL SCH (13:00)
--- NOTE | 2017-10-31 17:13 | Cardiology Report ---
APPROVED REPORT EXAM: Two-dimensional and M-mode echocardiogram with Doppler and color Doppler. INDICATION Bradycardia M-Mode DIMENSIONS IVSd0.9 (0.7-1.1cm)Left Atrium (MM)2.3 (1.6-4.0cm) LVDd3.6 (3.5-5.6cm)Aortic Root2.8 (2.0-3.7cm) PWd1.0 (0.7-1.1cm)Aortic Cusp Exc.1.6 (1.5-2.0cm) LVDs2.5 (2.5-4.0cm) PWs1.3 cm Technically difficult study due to patient on ventilator and poor windows. Study quality precludes accurate assessment of regional wall motion. Normal left ventricular chamber size, systolic function and wall motion to extent visualized. Left ventricular ejection fraction estimated to be 60 %. No evidence of left ventricular hypertrophy. Small pericardial effusion. All other cardiac chamber sizes are within normal limits. Focal aortic valve sclerosis with adequate cusp excursion. Mildly thickened mitral valve leaflets with normal excursion. Mild miitral annulus and aortic root calcification. Pulmonic valve not visualized. Normal tricuspid valve structure. IVC is within normal size without physiological collapse. A color flow and spectral Doppler study was performed and revealed: No aortic insufficiency. No mitral regurgitation. Left ventricular diastolic function could not be determined due to arrhythmia. Mild tricuspid regurgitation. Tricuspid systolic velocities suggests peak right ventricular systolic pressure of 34 mmHg.
[2017-10-31] MEDS: Dyna-Hex 2% Top Sol 2oz TOPIC SCH ×2 (20:00→20:11)
[2017-10-31] MEDS: DOPamine 400mg/250ml 250 ML IV SCH (20:11)
[2017-10-31] MEDS: Midodrine 10mg tab ORAL SCH (21:48)
[2017-11-01] VITALS (32 sets, daily range): BP systolic 84–122; BP diastolic 43–63
[2017-11-01] MEDS: 1/2NS w/KCl 20mEq 1000ml 1,000 ML IV SCH (04:17)
[2017-11-01] MEDS: ceFAZolin 2gm/50ml Premix 50 ML IV SCH ×3 (05:46→21:50)
[2017-11-01] MEDS: Midodrine 10mg tab ORAL SCH ×3 (05:46→21:51)
--- NOTE | 2017-11-01 08:28 | Nephrology Progress Note ---
Assessment/Plan Assessment/Plan 1. RABIA- secondary to multifact ATN (pigment Neph + Isch ATN + Urinary retention) - Dopamine. DC IVFs on TFs - AM labs pending 2. Rhabdo- Pigment Nephropathy - resolved 3. Resp FL- intubated 4. Urinary Retention- tate 5. Hypotension/Sepsis- Abx, Dopa 6. Hypokalemia- AM labs pending Subjective Date patient seen: Nov 01, 2017 Time patient seen: 08:25 ROS Limited/Unobtainable: Yes Allergies: Coded Allergies: No Known Allergies (Unverified , 10/23/17) All Systems: reviewed and negative except above Subjective Patient now extubated on min dopamine Objective Last 24 Hour Vital Signs Date Time Temp Pulse Resp B/P (MAP) Pulse Ox O2 Delivery O2 Flow Rate FiO2 11/01/17 07:00 93 20 94/53 (67) 95 11/01/17 06:00 89 21 89/52 (64) 98 11/01/17 05:30 85 17 86/44 (58) 98 11/01/17 05:00 88 19 84/47 (59) 97 11/01/17 04:30 91 21 91/50 (64) 98 11/01/17 04:00 Nasal Cannula 3.0 11/01/17 04:00 98.4 100 19 94/54 (67) 95 98.4 11/01/17 04:00 3.0 11/01/17 04:00 94 11/01/17 03:30 87 19 86/47 (60) 89 11/01/17 03:00 93 20 85/46 (59) 90 11/01/17 02:30 84 18 91/54 (66) 91 11/01/17 02:00 88 20 92/49 (63) 93 11/01/17 01:30 85 20 93/43 (60) 92 11/01/17 01:00 83 20 92/52 (65) 97 11/01/17 00:30 86 20 88/43 (58) 96 11/01/17 00:00 84 22 96/53 (67) 94 11/01/17 00:00 Nasal Cannula 3.0 11/01/17 00:00 3.0 11/01/17 00:00 73 10/31/17 23:30 83 18 96/42 (60) 96 7/19/18 23:00 98.9 78 18 97/45 (62) 93 98.9 7/19/18 22:00 88 22 91/46 (61) 92 7/19/18 21:30 90 23 86/42 (57) 97 7/19/18 21:00 84 20 86/51 (63) 96 7/19/18 20:30 107 26 93/59 (70) 99 7/19/18 20:11 82/43 7/19/18 20:03 3.0 7/19/18 20:00 Nasal Cannula 3.0 7/19/18 20:00 79 7/19/18 20:00 84 21 82/43 (56) 99 7/19/18 19:30 92 18 Nasal Cannula 3.0 32 7/19/18 19:30 Nasal Cannula 3.0 32 7/19/18 19:30 95 Nasal Cannula 3.0 32 7/19/18 19:30 98.6 84 23 96/48 (64) 98 98.6 7/19/18 19:00 83 19 81/46 (58) 100 7/19/18 18:30 83 23 89/50 (63) 95 7/19/18 18:00 87 20 88/51 (63) 95 7/19/18 17:30 83 22 91/47 (62) 95 7/19/18 17:00 86 23 90/40 (57) 95 7/19/18 16:30 91 23 87/48 (61) 97 7/19/18 16:00 78 7/19/18 16:00 98.8 87 25 88/44 (59) 96 98.8 7/19/18 16:00 Nasal Cannula 3.0 7/19/18 16:00 3.0 7/19/18 15:30 76 21 88/44 (59) 98 7/19/18 15:08 90/48 7/19/18 15:00 81 24 90/48 (62) 100 7/19/18 14:30 84 23 87/53 (64) 99 7/19/18 14:00 75 21 94/47 (63) 95 7/19/18 14:00 94/47 7/19/18 13:30 82 25 92/52 (65) 97 7/19/18 13:00 77 21 95/55 (68) 93 7/19/18 13:00 95/55 10/31/17 12:30 94 20 92/46 (61) 93 10/31/17 12:00 91 10/31/17 12:00 3.0 10/31/17 12:00 Nasal Cannula 3.0 10/31/17 12:00 91/36 10/31/17 12:00 99.6 93 23 91/39 (56) 97 99.6 10/31/17 11:30 93 27 91/42 (58) 97 10/31/17 11:00 Nasal Cannula 4.0 36 10/31/17 11:00 102/53 10/31/17 11:00 90 23 95/51 (66) 98 10/31/17 11:00 Nasal Cannula 3.0 32 10/31/17 10:30 73 17 96/46 (63) 99 10/31/17 10:00 78 19 99/46 (63) 99 10/31/17 10:00 99/46 10/31/17 09:30 80 18 97/47 (64) 99 10/31/17 09:00 95/42 10/31/17 09:00 83 19 95/42 (59) 99 10/31/17 08:30 78 17 92/43 (59) 99 10/31/17 08:30 80 18 24 Intake and Output 10/31/17 11/01/17 19:00 07:00 Intake Total 1369.715 ml 1346.144 ml Output Total 1375 ml 2250 ml Balance -5.285 ml -903.856 ml Free Water 300 ml IV Total 509.715 ml 746.144 ml Tube Feeding 540 ml 540 ml Other 20 ml 60 ml Output Urine Total 1375 ml 2250 ml # Bowel Movements 2 1 Laboratory Tests 10/31/17 09:45: Arterial Blood pH 7.431, Arterial Blood Partial Pressure CO2 36.6, Arterial Blood Partial Pressure O2 71.7L, Arterial Blood HCO3 23.8, Arterial Blood Oxygen Saturation 93.5, Arterial Blood Base Excess -0.3, Srinath Test Positive 10/31/17 18:05: Potassium Level 4.1 Height (Feet): 5 Height (Inches): 1.00 Weight (Pounds): 113 General Appearance: WD/WN, no apparent distress EENT: PERRL/EOMI Neck: non-tender, normal alignment Cardiovascular: normal peripheral pulses, normal rate Respiratory/Chest: chest wall non-tender, lungs clear, normal breath sounds Abdomen: normal bowel sounds, non tender, soft Edema: no edema noted Arm (L), no edema noted Arm (R), no edema noted Leg (L), no edema noted Leg (R), no edema noted Pedal (L), no edema noted Pedal (R), no edema noted Generalized Aiden Sidhu M.D. Nov 01, 2017 08:28
--- NOTE | 2017-11-01 09:11 | General Progress Note ---
Assessment/Plan Assessment/Plan IMPRESSION: 1. sepsis. 2. Acute on chronic encephalopathy. 3. Hypernatremia. 4. Acute renal failure. 5. Severe protein-calorie malnutrition. 6. Leukocytosis. 7. Anemia. 8. Down syndrome. 9. rhabdo 10. respiratory failure PLAN feeds monitor for change monitor hemodynamics antibiotics noted noted cultures monitor ABG for retention nutrition per dietary vent support- off NGT in place video swallow monitor closely medications/laboratory data/nursing notes/ICU care reviewed in detail note reviewed and edited care discussed with RN and RT ICU time spent 40 minutes Subjective Allergies: Coded Allergies: No Known Allergies (Unverified , 10/23/17) Subjective on feeds off vent speech therapy on board Objective Last 24 Hour Vital Signs Date Time Temp Pulse Resp B/P (MAP) Pulse Ox O2 Delivery O2 Flow Rate FiO2 11/01/17 08:00 98.2 81 18 100/57 (71) 97 98.2 11/01/17 08:00 3.0 11/01/17 08:00 Nasal Cannula 3.0 11/01/17 08:00 89 11/01/17 07:00 93 20 94/53 (67) 95 11/01/17 06:00 89 21 89/52 (64) 98 11/01/17 05:30 85 17 86/44 (58) 98 11/01/17 05:00 88 19 84/47 (59) 97 11/01/17 04:30 91 21 91/50 (64) 98 11/01/17 04:00 Nasal Cannula 3.0 11/01/17 04:00 98.4 100 19 94/54 (67) 95 98.4 11/01/17 04:00 3.0 11/01/17 04:00 94 11/01/17 03:30 87 19 86/47 (60) 89 11/01/17 03:00 93 20 85/46 (59) 90 11/01/17 02:30 84 18 91/54 (66) 91 11/01/17 02:00 88 20 92/49 (63) 93 11/01/17 01:30 85 20 93/43 (60) 92 11/01/17 01:00 83 20 92/52 (65) 97 11/01/17 00:30 86 20 88/43 (58) 96 11/01/17 00:00 84 22 96/53 (67) 94 7/20/18 00:00 Nasal Cannula 3.0 7/20/18 00:00 3.0 7/20/18 00:00 73 7/19/18 23:30 83 18 96/42 (60) 96 7/19/18 23:00 98.9 78 18 97/45 (62) 93 98.9 7/19/18 22:00 88 22 91/46 (61) 92 7/19/18 21:30 90 23 86/42 (57) 97 7/19/18 21:00 84 20 86/51 (63) 96 7/19/18 20:30 107 26 93/59 (70) 99 7/19/18 20:11 82/43 7/19/18 20:03 3.0 7/19/18 20:00 Nasal Cannula 3.0 7/19/18 20:00 79 7/19/18 20:00 84 21 82/43 (56) 99 7/19/18 19:30 92 18 Nasal Cannula 3.0 32 7/19/18 19:30 Nasal Cannula 3.0 32 7/19/18 19:30 95 Nasal Cannula 3.0 32 7/19/18 19:30 98.6 84 23 96/48 (64) 98 98.6 7/19/18 19:00 83 19 81/46 (58) 100 7/19/18 18:30 83 23 89/50 (63) 95 7/19/18 18:00 87 20 88/51 (63) 95 7/19/18 17:30 83 22 91/47 (62) 95 7/19/18 17:00 86 23 90/40 (57) 95 7/19/18 16:30 91 23 87/48 (61) 97 7/19/18 16:00 78 7/19/18 16:00 98.8 87 25 88/44 (59) 96 98.8 7/19/18 16:00 Nasal Cannula 3.0 7/19/18 16:00 3.0 7/19/18 15:30 76 21 88/44 (59) 98 7/19/18 15:08 90/48 7/19/18 15:00 81 24 90/48 (62) 100 7/19/18 14:30 84 23 87/53 (64) 99 7/19/18 14:00 75 21 94/47 (63) 95 10/31/17 14:00 94/47 10/31/17 13:30 82 25 92/52 (65) 97 10/31/17 13:00 77 21 95/55 (68) 93 10/31/17 13:00 95/55 10/31/17 12:30 94 20 92/46 (61) 93 10/31/17 12:00 91 10/31/17 12:00 3.0 10/31/17 12:00 Nasal Cannula 3.0 10/31/17 12:00 91/36 10/31/17 12:00 99.6 93 23 91/39 (56) 97 99.6 10/31/17 11:30 93 27 91/42 (58) 97 10/31/17 11:00 Nasal Cannula 4.0 36 10/31/17 11:00 102/53 10/31/17 11:00 90 23 95/51 (66) 98 10/31/17 11:00 Nasal Cannula 3.0 32 10/31/17 10:30 73 17 96/46 (63) 99 10/31/17 10:00 78 19 99/46 (63) 99 10/31/17 10:00 99/46 10/31/17 09:30 80 18 97/47 (64) 99 Intake and Output 10/31/17 11/01/17 19:00 07:00 Intake Total 1369.715 ml 1346.144 ml Output Total 1375 ml 2250 ml Balance -5.285 ml -903.856 ml Free Water 300 ml IV Total 509.715 ml 746.144 ml Tube Feeding 540 ml 540 ml Other 20 ml 60 ml Output Urine Total 1375 ml 2250 ml # Bowel Movements 2 1 Laboratory Tests 10/31/17 09:45: Arterial Blood pH 7.431, Arterial Blood Partial Pressure CO2 36.6, Arterial Blood Partial Pressure O2 71.7L, Arterial Blood HCO3 23.8, Arterial Blood Oxygen Saturation 93.5, Arterial Blood Base Excess -0.3, Srinath Test Positive 10/31/17 18:05: Potassium Level 4.1 Height (Feet): 5 Height (Inches): 1.00 Weight (Pounds): 113 Objective WDWN NAD and sedated on o2 and NGT reduced breath sounds bilaterally [id number] without MRG NABS nontender no HSM no CCE short stature more alert and comfortable Guero Noel MD Nov 01, 2017 09:11
[2017-11-01] MEDS ORDERED: NS 275ml ONE (09:48)
[2017-11-01] MEDS ORDERED: NS 500ML ONE (09:48)
[2017-11-01] MEDS ORDERED: 1/2 NS 1000ml IV ONE ×3 (09:48→10:19)
[2017-11-01] MEDS ORDERED: Tubing IV Secondary IV ONE ×3 (09:48→10:19)
[2017-11-01] MEDS: Vitamin D 1000 IU Tab ORAL SCH (10:06)
[2017-11-01] MEDS ORDERED: D5NS 1000ml IV ONE (10:19)
[2017-11-01] MEDS ORDERED: Sterile Water Irrig 1000ml IRRIG ONE (10:19)
--- NOTE | 2017-11-01 10:25 | Infectious Diseases Prog Note ---
Assessment/Plan Assessment/Plan antibiotics : ancef A 1. e.coli sepsis 2. staph aureus pneumonia 3. shock 4. colitis 5. respiratory failure 6. renal failure improving 7. Downs syndrome 8. leucocytosis resolved P 1. continue ancef 4 more days 2. will follow up cultures Subjective ROS Limited/Unobtainable: Yes Allergies: Coded Allergies: No Known Allergies (Unverified , 10/23/17) Objective Vital Signs Last 24 Hour Vital Signs Date Time Temp Pulse Resp B/P (MAP) Pulse Ox O2 Delivery O2 Flow Rate FiO2 11/01/17 08:00 98.2 81 18 100/57 (71) 97 98.2 11/01/17 08:00 3.0 11/01/17 08:00 Nasal Cannula 3.0 11/01/17 08:00 89 11/01/17 07:00 93 20 94/53 (67) 95 11/01/17 06:00 89 21 89/52 (64) 98 11/01/17 05:30 85 17 86/44 (58) 98 11/01/17 05:00 88 19 84/47 (59) 97 11/01/17 04:30 91 21 91/50 (64) 98 11/01/17 04:00 Nasal Cannula 3.0 11/01/17 04:00 98.4 100 19 94/54 (67) 95 98.4 11/01/17 04:00 3.0 11/01/17 04:00 94 11/01/17 03:30 87 19 86/47 (60) 89 11/01/17 03:00 93 20 85/46 (59) 90 11/01/17 02:30 84 18 91/54 (66) 91 11/01/17 02:00 88 20 92/49 (63) 93 11/01/17 01:30 85 20 93/43 (60) 92 11/01/17 01:00 83 20 92/52 (65) 97 11/01/17 00:30 86 20 88/43 (58) 96 11/01/17 00:00 84 22 96/53 (67) 94 11/01/17 00:00 Nasal Cannula 3.0 11/01/17 00:00 3.0 11/01/17 00:00 73 10/31/17 23:30 83 18 96/42 (60) 96 7/19/18 23:00 98.9 78 18 97/45 (62) 93 98.9 7//18 22:00 88 22 91/46 (61) 92 7/19/18 21:30 90 23 86/42 (57) 97 7/19/18 21:00 84 20 86/51 (63) 96 7//18 20:30 107 26 93/59 (70) 99 18 20:11 82/43 718 20:03 3.0 18 20:00 Nasal Cannula 3.0 18 20:00 79 7/18 20:00 84 21 82/43 (56) 99 10/31/18 19:30 92 18 Nasal Cannula 3.0 32 18 19:30 Nasal Cannula 3.0 32 7/18 19:30 95 Nasal Cannula 3.0 32 10/31/18 19:30 98.6 84 23 96/48 (64) 98 98.6 10/31/18 19:00 83 19 81/46 (58) 100 7//18 18:30 83 23 89/50 (63) 95 7/19/18 18:00 87 20 88/51 (63) 95 7/19/18 17:30 83 22 91/47 (62) 95 7//18 17:00 86 23 90/40 (57) 95 7/19/18 16:30 91 23 87/48 (61) 97 7/19/18 16:00 78 7//18 16:00 98.8 87 25 88/44 (59) 96 98.8 10/31/18 16:00 Nasal Cannula 3.0 10/31/18 16:00 3.0 10/31/18 15:30 76 21 88/44 (59) 98 7/19/18 15:08 90/48 7/19/18 15:00 81 24 90/48 (62) 100 7/18 14:30 84 23 87/53 (64) 99 7/19/18 14:00 75 21 94/47 (63) 95 7/19/18 14:00 94/47 7//18 13:30 82 25 92/52 (65) 97 7//18 13:00 77 21 95/55 (68) 93 7//18 13:00 95/55 10/31/17 12:30 94 20 92/46 (61) 93 10/31/17 12:00 91 10/31/17 12:00 3.0 10/31/17 12:00 Nasal Cannula 3.0 10/31/17 12:00 91/36 10/31/17 12:00 99.6 93 23 91/39 (56) 97 99.6 10/31/17 11:30 93 27 91/42 (58) 97 10/31/17 11:00 Nasal Cannula 4.0 36 10/31/17 11:00 102/53 10/31/17 11:00 90 23 95/51 (66) 98 10/31/17 11:00 Nasal Cannula 3.0 32 10/31/17 10:30 73 17 96/46 (63) 99 Height (Feet): 5 Height (Inches): 1.00 Weight (Pounds): 113 Respiratory/Chest: lungs clear Cardiovascular: normal rate, regular rhythm, no gallop/murmur Abdomen: soft, non tender Extremities: no edema, other - right groin catheter Microbiology Date/Time Source Procedure Growth Status 10/30/17 14:00 Stool Clostridium difficile Toxin Assay - Final Complete Laboratory Tests Test 10/31/17 18:05 Potassium Level 4.1 MMOL/L (3.5-5.1) Current Medications Medications (Trade) Dose Ordered Sig/Merlene Route PRN Reason Start Time Stop Time Status Last Admin Dose Admin Acetaminophen (Tylenol) 650 mg Q4H PRN ORAL Mild Pain/Temp > 100.5 10/24/17 02:15 11/23/17 02:14 10/28/17 13:14 Cefazolin Sodium 50 ml @ 100 mls/hr Q8HR IV 10/29/17 14:00 11/05/17 13:59 11/01/17 05:46 Chlorhexidine Gluconate (Chandni-Hex 2%) 1 applic DAILY@1999 TOPIC 10/25/17 20:00 11/24/17 19:59 10/31/17 20:11 Chlorhexidine Gluconate (Chandni-Hex 2%) 1 applic DAILY@1999 TOPIC 10/31/17 20:00 11/30/17 19:59 Docusate Sodium (Colace) 100 mg DAILY PRN ORAL Constipation 10/24/17 02:30 11/23/17 02:29 Dopamine HCl/ Dextrose 250 ml @ 0 mls/hr Q24H IV 10/30/17 20:45 11/29/17 20:44 10/31/17 20:11 Heparin Sodium/ Sodium Chloride (Heparin 2000 units/Ns 1000ml premix) 2,000 unit ONCE PRN INJ for picc line placement 10/31/17 10:30 11/02/17 10:29 Lidocaine HCl (Xylocaine 1% 30ml) 30 ml ONCE PRN INJ for picc line placement 10/31/17 10:30 11/02/17 10:29 Lorazepam (Ativan 2mg/ml 1ml) 1 mg Q3HR PRN IV For Anxiety 10/26/17 22:45 11/02/17 22:44 10/29/17 05:01 Midodrine (Pro-Amatine) 10 mg EVERY 8 HOURS ORAL 10/31/17 22:00 11/30/17 21:59 11/01/17 05:46 Vitamin D (Vitamin D) 1,000 intlu DAILY ORAL 10/24/17 09:00 11/23/17 08:59 11/01/17 10:06 DISHA QUESADA Nov 01, 2017 10:25
[2017-11-01 11:46] LABS: ANION GAP 5 mmol/L (5-15); BLOOD UREA NITROGEN 15 mg/dL (7-18); CALCIUM 7.7 MG/DL (8.5-10.1); CARBON DIOXIDE 29 MMOL/L (21-32); CHLORIDE 108 MMOL/L (98-107); CREATININE 0.9 MG/DL (0.55-1.30); POTASSIUM 3.8 MMOL/L (3.5-5.1); SODIUM 142 MMOL/L (136-145)
[2017-11-01] MEDS: Dyna-Hex 2% Top Sol 2oz TOPIC SCH ×2 (20:00→20:46)
[2017-11-01] MEDS: DOPamine 400mg/250ml 250 ML IV SCH (20:45)
[2017-11-02] VITALS (17 sets, daily range): BP systolic 97–119; BP diastolic 50–91
[2017-11-02] MEDS: ceFAZolin 2gm/50ml Premix 50 ML IV SCH ×2 (05:33→14:17)
[2017-11-02] MEDS: Midodrine 10mg tab ORAL SCH ×3 (05:33→22:00)
[2017-11-02 06:04] LABS: ANION GAP 2 mmol/L (5-15); BLOOD UREA NITROGEN 14 mg/dL (7-18); CALCIUM 8.5 MG/DL (8.5-10.1); CARBON DIOXIDE 35 MMOL/L (21-32); CHLORIDE 107 MMOL/L (98-107); CREATININE 1.1 MG/DL (0.55-1.30); POTASSIUM 3.9 MMOL/L (3.5-5.1); SODIUM 144 MMOL/L (136-145)
--- NOTE | 2017-11-02 08:28 | Nephrology Progress Note ---
Assessment/Plan Assessment/Plan 1. RABIA- secondary to multifact ATN (pigment Neph + Isch ATN + Urinary retention) - resolved - off IVFs and IV pressor 2. Rhabdo- Pigment Nephropathy - resolved 3. Resp FL- resolved, extubated 4. Urinary Retention- tate 5. Hypotension/Sepsis- Abx 6. Hypokalemia- corrected Subjective Date patient seen: Nov 02, 2017 Time patient seen: 08:26 ROS Limited/Unobtainable: Yes Allergies: Coded Allergies: No Known Allergies (Unverified , 10/23/17) Subjective Patient now extubated and off IV pressor Objective Last 24 Hour Vital Signs Date Time Temp Pulse Resp B/P (MAP) Pulse Ox O2 Delivery O2 Flow Rate FiO2 11/02/17 08:00 98.8 91 30 100/51 (67) 95 98.8 11/02/17 07:00 99.2 102 24 119/62 (81) 97 99.2 11/02/17 06:00 97.9 86 28 99/57 (71) 98 97.9 11/02/17 05:00 98.0 103 16 100/74 (83) 96 98.0 11/02/17 04:02 100 11/02/17 04:00 Nasal Cannula 3.0 11/02/17 04:00 97.9 97 23 104/50 (68) 97 97.9 11/02/17 03:00 99 17 110/66 (81) 93 11/02/17 02:00 97.7 99 21 110/66 (81) 96 97.7 11/02/17 01:00 98.6 107 16 97/73 (81) 95 98.6 11/02/17 00:54 110 11/02/17 00:00 99.3 106 26 102/58 (73) 95 99.3 11/02/17 00:00 Nasal Cannula 3.0 11/01/17 23:00 97 22 92/52 (65) 99 11/01/17 22:00 89 16 97/61 (73) 95 11/01/17 21:51 92 11/01/17 21:00 81 22 86/55 (65) 100 11/01/17 20:45 121/62 11/01/17 20:00 Nasal Cannula 3.0 11/01/17 20:00 97.5 82 18 103/58 (73) 96 97.5 11/01/17 19:00 85 18 117/54 (75) 96 11/01/17 18:00 85 20 122/63 (82) 96 11/01/17 17:00 82 21 115/60 (78) 98 11/01/17 16:00 Nasal Cannula 3.0 11/01/17 16:00 98.2 80 18 109/57 (74) 97 98.2 11/01/17 16:00 85 11/01/17 15:00 85 20 112/55 (74) 96 11/01/17 14:00 87 21 108/53 (71) 96 11/01/17 13:00 85 20 98/50 (66) 98 11/01/17 12:00 Nasal Cannula 3.0 11/01/17 12:00 98.2 80 18 102/57 (72) 97 98.2 11/01/17 12:00 87 11/01/17 11:30 91 21 95/48 (64) 91 11/01/17 11:00 92 21 95/48 (64) 92 11/01/17 10:30 89 20 98/48 (65) 92 11/01/17 10:00 90 20 99/55 (70) 95 11/01/17 09:00 95 20 98/60 (73) 95 Intake and Output 11/01/17 11/02/17 19:00 07:00 Intake Total 636.541 ml 590 ml Output Total 1630 ml 2115 ml Balance -993.459 ml -1525 ml IV Total 96.541 ml 50 ml Tube Feeding 540 ml 540 ml Output Urine Total 1630 ml 2115 ml # Bowel Movements 1 3 Laboratory Tests 11/01/17 11:10: Sodium Level 142, Potassium Level 3.8, Chloride Level 108H, Carbon Dioxide Level 29, Anion Gap 5, Blood Urea Nitrogen 15, Creatinine 0.9, Estimat Glomerular Filtration Rate > 60, Glucose Level 132H, Calcium Level 7.7L 11/02/17 04:38: Sodium Level 144, Potassium Level 3.9, Chloride Level 107, Carbon Dioxide Level 35H, Anion Gap 2L, Blood Urea Nitrogen 14, Creatinine 1.1, Estimat Glomerular Filtration Rate > 60, Glucose Level 121H, Calcium Level 8.5 Height (Feet): 5 Height (Inches): 1.00 Weight (Pounds): 112 General Appearance: WD/WN, no apparent distress EENT: PERRL/EOMI Neck: non-tender, normal alignment Cardiovascular: normal peripheral pulses, normal rate Respiratory/Chest: chest wall non-tender, lungs clear, normal breath sounds Abdomen: normal bowel sounds, non tender, soft Edema: no edema noted Arm (L), no edema noted Arm (R), no edema noted Leg (L), no edema noted Leg (R), no edema noted Pedal (L), no edema noted Pedal (R), no edema noted Generalized Aiden Sidhu M.D. Nov 02, 2017 08:28
--- NOTE | 2017-11-02 09:03 | General Progress Note ---
Assessment/Plan Assessment/Plan IMPRESSION: 1. sepsis. 2. Acute on chronic encephalopathy. 3. Hypernatremia. 4. Acute renal failure. 5. Severe protein-calorie malnutrition. 6. Leukocytosis. 7. Anemia. 8. Down syndrome. 9. rhabdo 10. respiratory failure PLAN feeds antibiotics noted noted cultures monitor ABG for C02 retention nutrition per dietary NGT in place video swallow monitor closely and transfer to [facility] medications/laboratory data/nursing notes/ICU care reviewed in detail note reviewed and edited care discussed with RN and RT ICU time spent 40 minutes Subjective ROS Limited/Unobtainable: Yes Allergies: Coded Allergies: No Known Allergies (Unverified , 10/23/17) Subjective on feeds off vent awake Objective Last 24 Hour Vital Signs Date Time Temp Pulse Resp B/P (MAP) Pulse Ox O2 Delivery O2 Flow Rate FiO2 11/02/17 08:00 Nasal Cannula 3.0 11/02/17 08:00 98.8 91 30 100/51 (67) 95 98.8 11/02/17 07:00 99.2 102 24 119/62 (81) 97 99.2 11/02/17 06:00 97.9 86 28 99/57 (71) 98 97.9 11/02/17 05:00 98.0 103 16 100/74 (83) 96 98.0 11/02/17 04:02 100 11/02/17 04:00 Nasal Cannula 3.0 11/02/17 04:00 97.9 97 23 104/50 (68) 97 97.9 11/02/17 03:00 99 17 110/66 (81) 93 11/02/17 02:00 97.7 99 21 110/66 (81) 96 97.7 11/02/17 01:00 98.6 107 16 97/73 (81) 95 98.6 11/02/17 00:54 110 11/02/17 00:00 99.3 106 26 102/58 (73) 95 99.3 11/02/17 00:00 Nasal Cannula 3.0 11/01/17 23:00 97 22 92/52 (65) 99 11/01/17 22:00 89 16 97/61 (73) 95 11/01/17 21:51 92 11/01/17 21:00 81 22 86/55 (65) 100 11/01/17 20:45 121/62 7/20/18 20:00 Nasal Cannula 3.0 11/01/17 20:00 97.5 82 18 103/58 (73) 96 97.5 11/01/17 19:00 85 18 117/54 (75) 96 11/01/17 18:00 85 20 122/63 (82) 96 11/01/17 17:00 82 21 115/60 (78) 98 11/01/17 16:00 Nasal Cannula 3.0 11/01/17 16:00 98.2 80 18 109/57 (74) 97 98.2 11/01/17 16:00 85 11/01/17 15:00 85 20 112/55 (74) 96 11/01/17 14:00 87 21 108/53 (71) 96 11/01/17 13:00 85 20 98/50 (66) 98 11/01/17 12:00 Nasal Cannula 3.0 11/01/17 12:00 98.2 80 18 102/57 (72) 97 98.2 11/01/17 12:00 87 11/01/17 11:30 91 21 95/48 (64) 91 11/01/17 11:00 92 21 95/48 (64) 92 11/01/17 10:30 89 20 98/48 (65) 92 11/01/17 10:00 90 20 99/55 (70) 95 Intake and Output 11/01/17 11/02/17 19:00 07:00 Intake Total 636.541 ml 590 ml Output Total 1630 ml 2115 ml Balance -993.459 ml -1525 ml IV Total 96.541 ml 50 ml Tube Feeding 540 ml 540 ml Output Urine Total 1630 ml 2115 ml # Bowel Movements 1 3 Laboratory Tests 11/01/17 11:10: Sodium Level 142, Potassium Level 3.8, Chloride Level 108H, Carbon Dioxide Level 29, Anion Gap 5, Blood Urea Nitrogen 15, Creatinine 0.9, Estimat Glomerular Filtration Rate > 60, Glucose Level 132H, Calcium Level 7.7L 11/02/17 04:38: Sodium Level 144, Potassium Level 3.9, Chloride Level 107, Carbon Dioxide Level 35H, Anion Gap 2L, Blood Urea Nitrogen 14, Creatinine 1.1, Estimat Glomerular Filtration Rate > 60, Glucose Level 121H, Calcium Level 8.5 Height (Feet): 5 Height (Inches): 1.00 Weight (Pounds): 112 Objective WDWN NAD and sedated on o2 and NGT reduced breath sounds bilaterally [id number] without MRG NABS nontender no HSM no CCE short stature more alert and comfortable Guero Noel MD Nov 02, 2017 09:03
[2017-11-02] MEDS: Vitamin D 1000 IU Tab ORAL SCH (09:13)
[2017-11-02] MEDS ORDERED: LORazepam Inj 2mg/ml 1ml IV PRN (17:00)
[2017-11-02] MEDS ORDERED: NS 500ML ONE (17:38)
[2017-11-02] MEDS: ceFAZolin sod 2 GM in NS 55 ML IVPB SCH (21:25)
[2017-11-02] MEDS ORDERED: ceFAZolin 2gm/50ml Premix 50 ML IV SCH (22:00)
[2017-11-03] VITALS: BP 104/61
--- NOTE | 2017-11-03 01:47 | Diagnostic Imaging Report ---
EXAM: XR Chest, 1 View CLINICAL HISTORY: NGT TECHNIQUE: Frontal view of the chest. COMPARISON: 10/27/17 FINDINGS: Lungs: Moderate amount of diffuse airspace opacities throughout both lungs with lower lung zone predominance, in opposite distribution compared to on the comparison study, suggest pneumonia Pleural space: Small bilateral pleural effusions. No pneumothorax. Heart: Unremarkable. No cardiomegaly. Mediastinum: Unremarkable. Bones/joints: Osteopenia. Tubes, lines and devices: Enteric tube is looped and returned superiorly at the level of T9-10. IMPRESSION: Enteric tube is looped and returned superiorly at the level of T9-10.
--- NOTE | 2017-11-03 03:53 | Diagnostic Imaging Report ---
EXAM: XR Abdomen, 2 Views CLINICAL HISTORY: NGT TECHNIQUE: Frontal view of the chest and abdomen. COMPARISON: Same day from 112 hour FINDINGS: Chest: Moderate amount of airspace opacity throughout both lungs. Small bowel pleural effusions. These findings are not substantially changed Gastrointestinal tract: 5 mm dilatation colon in the region of the splenic flexure. No dilation. Bones/joints: Unremarkable. Tubes, lines and devices: Sidehole of enteric tube is in the body the stomach. IMPRESSION: Sidehole of enteric tube is in the body the stomach.
[2017-11-03 04:00] VITALS: BP 109/66
[2017-11-03 05:05] LABS: BASOPHILS % (AUTO) 0.8 % (0.0-2.0); EOSINOPHILS % (AUTO) 0.9 % (0.0-3.0); HEMATOCRIT 27.6 % (42.0-52.0); HEMOGLOBIN 9.3 G/DL (14.2-18.0); LYMPHOCYTES % (AUTO) 21.8 % (20.0-45.0); MEAN CORPUSCULAR VOLUME 97 FL (80-99); MONOCYTES % (AUTO) 9.4 % (1.0-10.0); NEUTROPHILS % (AUTO) 67.2 % (45.0-75.0); PLATELET COUNT 244 K/UL (150-450); RED BLOOD COUNT 2.86 M/UL (4.70-6.10); RED CELL DISTRIBUTION WIDTH 13.1 % (11.6-14.8); WHITE BLOOD COUNT 6.1 K/UL (4.8-10.8)
[2017-11-03 05:13] LABS: ANION GAP 3 mmol/L (5-15); BLOOD UREA NITROGEN 14 mg/dL (7-18); CALCIUM 8.6 MG/DL (8.5-10.1); CARBON DIOXIDE 36 MMOL/L (21-32); CHLORIDE 103 MMOL/L (98-107); POTASSIUM 3.9 MMOL/L (3.5-5.1); SODIUM 142 MMOL/L (136-145)
[2017-11-03] MEDS: Midodrine 10mg tab ORAL SCH ×3 (05:28→21:04)
[2017-11-03] MEDS: ceFAZolin sod 2 GM in NS 55 ML IVPB SCH ×3 (05:28→22:35)
[2017-11-03 08:00] VITALS: BP 122/78
[2017-11-03] MEDS ORDERED: LORazepam Inj 2mg/ml 1ml IV PRN (08:00)
[2017-11-03] MEDS: Vitamin D 1000 IU Tab ORAL SCH (08:58)
[2017-11-03] MEDS ORDERED: Docusate 100mg cap ORAL PRN ×2 (09:00)
[2017-11-03] MEDS ORDERED: Vitamin D 1000 IU Tab ORAL SCH (09:00)
--- NOTE | 2017-11-03 09:31 | General Progress Note ---
Assessment/Plan Assessment/Plan IMPRESSION: 1. sepsis. 2. Acute on chronic encephalopathy. 3. Hypernatremia. 4. Acute renal failure. 5. Severe protein-calorie malnutrition. 6. Leukocytosis. 7. Anemia. 8. Down syndrome. 9. rhabdo 10. respiratory failure PLAN feeds antibiotics noted to dc after 3 days noted cultures monitor ABG PRN nutrition per dietary NGT in place and speech follow up dc planning soon Subjective ROS Limited/Unobtainable: Yes Allergies: Coded Allergies: No Known Allergies (Unverified , 10/23/17) Subjective on feeds off vent awake t/f to tele Objective Last 24 Hour Vital Signs Date Time Temp Pulse Resp B/P (MAP) Pulse Ox O2 Delivery O2 Flow Rate FiO2 11/03/17 09:00 Nasal Cannula 3.0 11/03/17 08:00 98.8 96 20 122/78 (93) 95 98.8 11/03/17 04:00 Nasal Cannula 3.0 11/03/17 04:00 96 11/03/17 04:00 98.1 95 23 109/66 (80) 95 98.1 11/03/17 00:00 98.5 93 23 104/61 (75) 95 98.5 11/03/17 00:00 Nasal Cannula 3.0 11/02/17 20:44 95 Room Air 11/02/17 20:44 Room Air 11/02/17 20:00 97 11/02/17 20:00 99.0 95 24 108/63 (78) 95 99.0 11/02/17 20:00 Nasal Cannula 3.0 11/02/17 16:30 89 11/02/17 16:00 Nasal Cannula 3.0 11/02/17 16:00 99.0 102 29 112/62 (79) 94 99.0 11/02/17 15:00 96 24 118/64 (82) 94 11/02/17 14:00 98 23 109/91 (97) 98 11/02/17 12:00 Nasal Cannula 3.0 11/02/17 12:00 99.0 94 23 101/62 (75) 94 99.0 11/02/17 12:00 93 11/02/17 11:00 103 24 103/74 (84) 91 11/02/17 10:00 101 23 110/64 (79) 93 Intake and Output 11/02/17 11/03/17 19:00 07:00 Intake Total 610 ml 605 ml Output Total 1536 ml 1300 ml Balance -926 ml -695 ml Free Water 100 ml 100 ml IV Total 60 ml 55 ml Tube Feeding 450 ml 450 ml Output Urine Total 1535 ml 1300 ml Stool Total 1 ml # Bowel Movements 2 Laboratory Tests 11/03/17 04:00: White Blood Count 6.1, Red Blood Count 2.86L, Hemoglobin 9.3L, Hematocrit 27.6L , Mean Corpuscular Volume 97, Mean Corpuscular Hemoglobin 32.5H, Mean Corpuscular Hemoglobin Concent 33.6, Red Cell Distribution Width 13.1, Platelet Count 244, Mean Platelet Volume 7.9, Neutrophils (%) (Auto) 67.2, Lymphocytes (% ) (Auto) 21.8, Monocytes (%) (Auto) 9.4, Eosinophils (%) (Auto) 0.9, Basophils ( %) (Auto) 0.8, Sodium Level 142, Potassium Level 3.9, Chloride Level 103, Carbon Dioxide Level 36H, Anion Gap 3L, Blood Urea Nitrogen 14, Creatinine 1.0, Estimat Glomerular Filtration Rate > 60, Glucose Level 106, Calcium Level 8.6 Height (Feet): 5 Height (Inches): 1.00 Weight (Pounds): 113 Objective WDWN NAD and sedated on o2 and NGT reduced breath sounds bilaterally [id number] without MRG NABS nontender no HSM no CCE short stature more alert and comfortable Guero Noel MD Nov 03, 2017 09:31
--- NOTE | 2017-11-03 09:48 | Nephrology Progress Note ---
Assessment/Plan Assessment/Plan 1. RABIA- secondary to multifact ATN (pigment Neph + Isch ATN + Urinary retention) - resolved, OK for DC from renal point - will follow from distance 2. Rhabdo- Pigment Nephropathy - resolved 3. Resp FL- resolved, extubated 4. Urinary Retention- tate. 5. Hypotension/Sepsis- Abx. Resolved 6. Hypokalemia- corrected Subjective Date patient seen: Nov 03, 2017 Time patient seen: 09:45 ROS Limited/Unobtainable: Yes Allergies: Coded Allergies: No Known Allergies (Unverified , 10/23/17) All Systems: reviewed and negative except above Subjective Patient stable, transferred out of ICU Objective Last 24 Hour Vital Signs Date Time Temp Pulse Resp B/P (MAP) Pulse Ox O2 Delivery O2 Flow Rate FiO2 11/03/17 09:00 Nasal Cannula 3.0 11/03/17 08:00 98 11/03/17 08:00 98.8 96 20 122/78 (93) 95 98.8 11/03/17 04:00 Nasal Cannula 3.0 11/03/17 04:00 96 11/03/17 04:00 98.1 95 23 109/66 (80) 95 98.1 11/03/17 00:00 98.5 93 23 104/61 (75) 95 98.5 11/03/17 00:00 Nasal Cannula 3.0 11/02/17 20:44 95 Room Air 11/02/17 20:44 Room Air 11/02/17 20:00 97 11/02/17 20:00 99.0 95 24 108/63 (78) 95 99.0 11/02/17 20:00 Nasal Cannula 3.0 11/02/17 16:30 89 11/02/17 16:00 Nasal Cannula 3.0 11/02/17 16:00 99.0 102 29 112/62 (79) 94 99.0 11/02/17 15:00 96 24 118/64 (82) 94 11/02/17 14:00 98 23 109/91 (97) 98 11/02/17 12:00 Nasal Cannula 3.0 11/02/17 12:00 99.0 94 23 101/62 (75) 94 99.0 11/02/17 12:00 93 11/02/17 11:00 103 24 103/74 (84) 91 11/02/17 10:00 101 23 110/64 (79) 93 Intake and Output 11/02/17 11/03/17 19:00 07:00 Intake Total 610 ml 605 ml Output Total 1536 ml 1300 ml Balance -926 ml -695 ml Free Water 100 ml 100 ml IV Total 60 ml 55 ml Tube Feeding 450 ml 450 ml Output Urine Total 1535 ml 1300 ml Stool Total 1 ml # Bowel Movements 2 Laboratory Tests 11/03/17 04:00: White Blood Count 6.1, Red Blood Count 2.86L, Hemoglobin 9.3L, Hematocrit 27.6L , Mean Corpuscular Volume 97, Mean Corpuscular Hemoglobin 32.5H, Mean Corpuscular Hemoglobin Concent 33.6, Red Cell Distribution Width 13.1, Platelet Count 244, Mean Platelet Volume 7.9, Neutrophils (%) (Auto) 67.2, Lymphocytes (% ) (Auto) 21.8, Monocytes (%) (Auto) 9.4, Eosinophils (%) (Auto) 0.9, Basophils ( %) (Auto) 0.8, Sodium Level 142, Potassium Level 3.9, Chloride Level 103, Carbon Dioxide Level 36H, Anion Gap 3L, Blood Urea Nitrogen 14, Creatinine 1.0, Estimat Glomerular Filtration Rate > 60, Glucose Level 106, Calcium Level 8.6 Height (Feet): 5 Height (Inches): 1.00 Weight (Pounds): 113 General Appearance: WD/WN EENT: PERRL/EOMI Neck: non-tender, normal alignment Cardiovascular: normal peripheral pulses, normal rate Respiratory/Chest: chest wall non-tender, lungs clear Abdomen: normal bowel sounds, non tender, soft Edema: no edema noted Arm (L), no edema noted Arm (R), no edema noted Leg (L), no edema noted Leg (R), no edema noted Pedal (L), no edema noted Pedal (R), no edema noted Generalized Aiden Sidhu M.D. Nov 03, 2017 09:47
[2017-11-03 12:00] VITALS: BP 105/76
--- NOTE | 2017-11-03 12:09 | Infectious Diseases Prog Note ---
Assessment/Plan Assessment/Plan A; Sepsis/Septic shock on Levophed E. coli sepsis Pneumonia with staph aureus Acute renal failure resolved Rhabdomyolysis Acidosis Elevated transaminase Hypokalemia Anemia O; Continue Ancef X 2 days Subjective ROS Limited/Unobtainable: Yes Neurologic: Reports: confusion, other - on restraint Allergies: Coded Allergies: No Known Allergies (Unverified , 10/23/17) Objective Vital Signs Last 24 Hour Vital Signs Date Time Temp Pulse Resp B/P (MAP) Pulse Ox O2 Delivery O2 Flow Rate FiO2 11/03/17 09:00 Nasal Cannula 3.0 11/03/17 08:00 98 11/03/17 08:00 98.8 96 20 122/78 (93) 95 98.8 11/03/17 04:00 Nasal Cannula 3.0 11/03/17 04:00 96 11/03/17 04:00 98.1 95 23 109/66 (80) 95 98.1 11/03/17 00:00 98.5 93 23 104/61 (75) 95 98.5 11/03/17 00:00 Nasal Cannula 3.0 11/02/17 20:44 95 Room Air 11/02/17 20:44 Room Air 11/02/17 20:00 97 11/02/17 20:00 99.0 95 24 108/63 (78) 95 99.0 11/02/17 20:00 Nasal Cannula 3.0 11/02/17 16:30 89 11/02/17 16:00 Nasal Cannula 3.0 11/02/17 16:00 99.0 102 29 112/62 (79) 94 99.0 11/02/17 15:00 96 24 118/64 (82) 94 11/02/17 14:00 98 23 109/91 (97) 98 Height (Feet): 5 Height (Inches): 1.00 Weight (Pounds): 113 General Appearance: no acute distress HEENT: mucous membranes moist Respiratory/Chest: lungs clear Cardiovascular: normal rate Abdomen: soft, non tender, other - NG tube feeding Extremities: no edema Neurologic/Psychiatric: disoriented Laboratory Tests Test 11/03/17 04:00 White Blood Count 6.1 K/UL (4.8-10.8) Red Blood Count 2.86 M/UL (4.70-6.10) L Hemoglobin 9.3 G/DL (14.2-18.0) L Hematocrit 27.6 % (42.0-52.0) L Mean Corpuscular Volume 97 FL (80-99) Mean Corpuscular Hemoglobin 32.5 PG (27.0-31.0) H Mean Corpuscular Hemoglobin Concent 33.6 G/DL (32.0-36.0) Red Cell Distribution Width 13.1 % (11.6-14.8) Platelet Count 244 K/UL (150-450) Mean Platelet Volume 7.9 FL (6.5-10.1) Neutrophils (%) (Auto) 67.2 % (45.0-75.0) Lymphocytes (%) (Auto) 21.8 % (20.0-45.0) Monocytes (%) (Auto) 9.4 % (1.0-10.0) Eosinophils (%) (Auto) 0.9 % (0.0-3.0) Basophils (%) (Auto) 0.8 % (0.0-2.0) Sodium Level 142 MMOL/L (136-145) Potassium Level 3.9 MMOL/L (3.5-5.1) Chloride Level 103 MMOL/L (98-107) Carbon Dioxide Level 36 MMOL/L (21-32) H Anion Gap 3 mmol/L (5-15) L Blood Urea Nitrogen 14 mg/dL (7-18) Creatinine 1.0 MG/DL (0.55-1.30) Estimat Glomerular Filtration Rate > 60 mL/min (>60) Glucose Level 106 MG/DL (74-106) Calcium Level 8.6 MG/DL (8.5-10.1) Current Medications Medications (Trade) Dose Ordered Sig/Merlene Route PRN Reason Start Time Stop Time Status Last Admin Dose Admin Acetaminophen (Tylenol) 650 mg Q4H PRN ORAL Mild Pain/Temp > 100.5 11/03/17 09:00 11/23/17 16:59 Cefazolin Sodium 2 gm/Sodium Chloride 55 ml @ 110 mls/hr Q8HR IVPB 11/03/17 14:00 11/05/17 23:59 Docusate Sodium (Colace) 100 mg DAILY PRN ORAL Constipation 11/03/17 09:00 11/23/17 02:29 Lorazepam (Ativan 2mg/ml 1ml) 1 mg Q3H PRN IV For Anxiety 11/03/17 08:00 11/09/17 16:59 Midodrine (Pro-Amatine) 10 mg EVERY 8 HOURS ORAL 11/03/17 14:00 11/30/17 21:59 Vitamin D (Vitamin D) 1,000 intlu DAILY ORAL 11/03/17 09:00 11/23/17 08:59 11/03/17 08:58 Ryan Fritz MD Nov 03, 2017 12:09
[2017-11-03 16:00] VITALS: BP 111/73
[2017-11-03 20:00] VITALS: BP 120/72
[2017-11-04] VITALS: BP 122/78
[2017-11-04 04:00] VITALS: BP 109/68
[2017-11-04] MEDS: Midodrine 10mg tab ORAL SCH ×3 (05:00→21:22)
[2017-11-04] MEDS: ceFAZolin sod 2 GM in NS 55 ML IVPB SCH ×3 (05:00→21:22)
[2017-11-04 08:00] VITALS: BP 92/59
--- NOTE | 2017-11-04 08:21 | General Progress Note ---
Assessment/Plan Assessment/Plan IMPRESSION: 1. sepsis. 2. Acute on chronic encephalopathy. 3. Hypernatremia. 4. Acute renal failure. 5. Severe protein-calorie malnutrition. 6. Leukocytosis. 7. Anemia. 8. Down syndrome. 9. rhabdo 10. respiratory failure PLAN Romazicon check ABG antibiotics noted to dc after 2 days noted cultures monitor ABG PRN nutrition per dietary defer VSS to am NGT- replace Subjective Allergies: Coded Allergies: No Known Allergies (Unverified , 10/23/17) Subjective pulled NGT reduced LOC---given ativan on restraints Objective Last 24 Hour Vital Signs Date Time Temp Pulse Resp B/P (MAP) Pulse Ox O2 Delivery O2 Flow Rate FiO2 11/04/17 04:00 97.8 92 21 109/68 (82) 96 97.8 11/04/17 04:00 111 11/04/17 00:00 98 11/04/17 00:00 97.7 98 20 122/78 (93) 96 97.7 11/03/17 21:00 Nasal Cannula 3.0 11/03/17 20:00 93 11/03/17 20:00 97.9 72 20 120/72 (88) 100 97.9 11/03/17 19:00 96 Room Air 11/03/17 19:00 Room Air 21 11/03/17 16:00 97.8 97 20 111/73 (86) 95 97.8 11/03/17 16:00 85 11/03/17 12:00 98.4 98 20 105/76 (86) 95 98.4 11/03/17 12:00 99 11/03/17 09:00 Nasal Cannula 3.0 Intake and Output 11/03/17 11/04/17 19:00 07:00 Intake Total 45 ml 375 ml Output Total 250 ml 800 ml Balance -205 ml -425 ml Free Water 50 ml IV Total 55 ml Tube Feeding 45 ml 270 ml Output Urine Total 250 ml 800 ml # Bowel Movements 1 1 Height (Feet): 5 Height (Inches): 1.00 Weight (Pounds): 97 Objective WDWN NAD and sedated on o2 reduced breath sounds bilaterally [id number] without MRG NABS nontender no HSM no CCE short stature reduced LOC Guero Noel MD Nov 04, 2017 08:21
[2017-11-04] MEDS: Vitamin D 1000 IU Tab ORAL SCH (08:28)
[2017-11-04] MEDS ORDERED: Flumazenil 1mg/10ml Inj IV SCH (09:00)
[2017-11-04] MEDS ORDERED: Sterile Water Irrig 1000ml IRRIG ONE (10:36)
[2017-11-04] MEDS ORDERED: Tubing IV Secondary IV ONE (10:36)
[2017-11-04] MEDS ORDERED: D5NS 1000ml IV ONE (10:36)
[2017-11-04] MEDS ORDERED: D5W 275ml ONE (10:36)
[2017-11-04 12:00] VITALS: BP 93/57
--- NOTE | 2017-11-04 12:12 | Consultation ---
History of Present Illness General Chief Complaint: Fever Present Illness Allergies: Coded Allergies: No Known Allergies (Unverified , 10/23/17) Medication History Scheduled Cholecalciferol (Vitamin D3)* (Vitamin D*), 2 TAB ORAL DAILY, (Reported) Docusate Sodium* (Colace*), 100 MG ORAL DAILY, (Reported) Simvastatin (Zocor), 20 MG ORAL BEDTIME, (Reported) Patient History Healthcare decision maker Resuscitation status Full Code Advanced Directive on File Physical Exam Last 24 Hour Vital Signs Date Time Temp Pulse Resp B/P (MAP) Pulse Ox O2 Delivery O2 Flow Rate FiO2 11/04/17 12:00 97.7 109 20 93/57 (69) 96 97.7 11/04/17 09:00 Nasal Cannula 3.0 11/04/17 08:00 111 11/04/17 08:00 97.9 104 20 92/59 (70) 96 97.9 11/04/17 04:00 97.8 92 21 109/68 (82) 96 97.8 11/04/17 04:00 111 11/04/17 00:00 98 11/04/17 00:00 97.7 98 20 122/78 (93) 96 97.7 11/03/17 21:00 Nasal Cannula 3.0 11/03/17 20:00 93 11/03/17 20:00 97.9 72 20 120/72 (88) 100 97.9 11/03/17 19:00 96 Room Air 11/03/17 19:00 Room Air 21 11/03/17 16:00 97.8 97 20 111/73 (86) 95 97.8 11/03/17 16:00 85 Intake and Output 11/03/17 11/04/17 19:00 07:00 Intake Total 45 ml 375 ml Output Total 250 ml 800 ml Balance -205 ml -425 ml Free Water 50 ml IV Total 55 ml Tube Feeding 45 ml 270 ml Output Urine Total 250 ml 800 ml # Bowel Movements 1 1 Laboratory Tests Test 11/04/17 08:15 Arterial Blood pH 7.503 (7.350-7.450) Arterial Blood Partial Pressure CO2 42.8 mmHg (35.0-45.0) Arterial Blood Partial Pressure O2 60.4 mmHg (75.0-100.0) L Arterial Blood HCO3 32.9 mmol/L (22.0-26.0) H Arterial Blood Oxygen Saturation 90.0 % (92.0-98.0) L Arterial Blood Base Excess 8.9 Srinath Test Positive Height (Feet): 5 Height (Inches): 1.00 Weight (Pounds): 97 Medications Current Medications Medications (Trade) Dose Ordered Sig/Merlene Route PRN Reason Start Time Stop Time Status Last Admin Dose Admin Acetaminophen (Tylenol) 650 mg Q4H PRN ORAL Mild Pain/Temp > 100.5 11/03/17 09:00 11/23/17 16:59 Cefazolin Sodium 2 gm/Sodium Chloride 55 ml @ 110 mls/hr Q8HR IVPB 11/03/17 14:00 11/05/17 23:59 11/04/17 05:00 Docusate Sodium (Colace) 100 mg DAILY PRN ORAL Constipation 11/03/17 09:00 11/23/17 02:29 Midodrine (Pro-Amatine) 10 mg EVERY 8 HOURS ORAL 11/03/17 14:00 11/30/17 21:59 11/03/17 21:04 Vitamin D (Vitamin D) 1,000 intlu DAILY ORAL 11/03/17 09:00 11/23/17 08:59 11/03/17 08:58 Charissa Beltran MD Nov 04, 2017 12:12
--- NOTE | 2017-11-04 13:43 | Infectious Diseases Prog Note ---
Assessment/Plan Assessment/Plan A; Sepsis/Septic shock resolved E. coli sepsis Pneumonia with staph aureus Acute renal failure resolved Rhabdomyolysis Acidosis corrected Elevated transaminase Hypokalemia Anemia O; Continue Ancef X 1 day Subjective ROS Limited/Unobtainable: Yes Gastrointestinal/Abdominal: Reports: other - NG tube removed Neurologic: Reports: other - on restraint Allergies: Coded Allergies: No Known Allergies (Unverified , 10/23/17) Objective Vital Signs Last 24 Hour Vital Signs Date Time Temp Pulse Resp B/P (MAP) Pulse Ox O2 Delivery O2 Flow Rate FiO2 11/04/17 12:00 97.7 109 20 93/57 (69) 96 97.7 11/04/17 09:00 Nasal Cannula 3.0 11/04/17 08:00 111 11/04/17 08:00 97.9 104 20 92/59 (70) 96 97.9 11/04/17 04:00 97.8 92 21 109/68 (82) 96 97.8 11/04/17 04:00 111 11/04/17 00:00 98 11/04/17 00:00 97.7 98 20 122/78 (93) 96 97.7 11/03/17 21:00 Nasal Cannula 3.0 11/03/17 20:00 93 11/03/17 20:00 97.9 72 20 120/72 (88) 100 97.9 11/03/17 19:00 96 Room Air 11/03/17 19:00 Room Air 21 11/03/17 16:00 97.8 97 20 111/73 (86) 95 97.8 11/03/17 16:00 85 Height (Feet): 5 Height (Inches): 1.00 Weight (Pounds): 97 General Appearance: no acute distress HEENT: other - dry mouth Respiratory/Chest: lungs clear Cardiovascular: tachycardia Abdomen: soft, non tender Extremities: no edema Neurologic/Psychiatric: other - sleeping Laboratory Tests Test 11/04/17 08:15 Arterial Blood pH 7.503 (7.350-7.450) Arterial Blood Partial Pressure CO2 42.8 mmHg (35.0-45.0) Arterial Blood Partial Pressure O2 60.4 mmHg (75.0-100.0) L Arterial Blood HCO3 32.9 mmol/L (22.0-26.0) H Arterial Blood Oxygen Saturation 90.0 % (92.0-98.0) L Arterial Blood Base Excess 8.9 Srinath Test Positive Current Medications Medications (Trade) Dose Ordered Sig/Merlene Route PRN Reason Start Time Stop Time Status Last Admin Dose Admin Acetaminophen (Tylenol) 650 mg Q4H PRN ORAL Mild Pain/Temp > 100.5 11/03/17 09:00 11/23/17 16:59 Cefazolin Sodium 2 gm/Sodium Chloride 55 ml @ 110 mls/hr Q8HR IVPB 11/03/17 14:00 11/05/17 23:59 11/04/17 05:00 Docusate Sodium (Colace) 100 mg DAILY PRN ORAL Constipation 11/03/17 09:00 11/23/17 02:29 Midodrine (Pro-Amatine) 10 mg EVERY 8 HOURS ORAL 11/03/17 14:00 11/30/17 21:59 11/03/17 21:04 Quetiapine Fumarate (SEROquel) 12.5 mg Q4H PRN ORAL agitation 11/04/17 12:15 12/04/17 12:14 Vitamin D (Vitamin D) 1,000 intlu DAILY ORAL 11/03/17 09:00 11/23/17 08:59 11/03/17 08:58 Ryan Fritz MD Nov 04, 2017 13:43
[2017-11-04 16:00] VITALS: BP 98/64
[2017-11-04 20:00] VITALS: BP 113/67
[2017-11-05] VITALS: BP 109/64
[2017-11-05 04:00] VITALS: BP 105/70
[2017-11-05] MEDS: Midodrine 10mg tab ORAL SCH ×3 (05:08→21:02)
[2017-11-05] MEDS: ceFAZolin sod 2 GM in NS 55 ML IVPB SCH ×3 (05:08→21:02)
--- NOTE | 2017-11-05 07:36 | General Progress Note ---
Assessment/Plan Assessment/Plan IMPRESSION: 1. sepsis. 2. Acute on chronic encephalopathy. 3. Hypernatremia. 4. Acute renal failure. 5. Severe protein-calorie malnutrition. 6. Leukocytosis. 7. Anemia. 8. Down syndrome. 9. rhabdo 10. respiratory failure PLAN antibiotics noted to dc after 1 days repeat cxr nutrition per dietary await video swallow NGT- po if able, if not safe, will proceed with gt and dc planning Subjective ROS Limited/Unobtainable: Yes Allergies: Coded Allergies: No Known Allergies (Unverified , 10/23/17) Subjective improved with ramizicon overall same NGT replaced Objective Last 24 Hour Vital Signs Date Time Temp Pulse Resp B/P (MAP) Pulse Ox O2 Delivery O2 Flow Rate FiO2 11/05/17 04:00 97.8 107 21 105/70 (82) 95 97.8 11/05/17 04:00 104 11/05/17 00:00 98.7 96 20 109/64 (79) 96 98.7 11/05/17 00:00 91 11/04/17 21:00 Nasal Cannula 3.0 11/04/17 20:00 97.9 91 20 113/67 (82) 96 97.9 11/04/17 20:00 85 11/04/17 16:00 98.1 85 20 98/64 (75) 96 98.1 11/04/17 16:00 103 11/04/17 12:00 97.7 109 20 93/57 (69) 96 97.7 11/04/17 12:00 106 11/04/17 09:00 Nasal Cannula 3.0 11/04/17 08:00 111 11/04/17 08:00 97.9 104 20 92/59 (70) 96 97.9 Intake and Output 11/04/17 11/05/17 19:00 07:00 Intake Total 480 ml Balance 480 ml Intake Oral 480 ml # Voids 3 4 # Bowel Movements 2 1 Laboratory Tests 11/04/17 08:15: Arterial Blood pH 7.503H, Arterial Blood Partial Pressure CO2 42.8, Arterial Blood Partial Pressure O2 60.4L, Arterial Blood HCO3 32.9H, Arterial Blood Oxygen Saturation 90.0L, Arterial Blood Base Excess 8.9, Srinath Test Positive Height (Feet): 5 Height (Inches): 1.00 Weight (Pounds): 95 Objective WDWN NAD and more awake on o2 reduced breath sounds bilaterally [id number] without MRG NABS nontender no HSM no CCE short stature reduced LOC Guero Noel MD Nov 05, 2017 07:36
[2017-11-05 08:00] VITALS: BP 116/59
[2017-11-05] MEDS: Vitamin D 1000 IU Tab ORAL SCH (08:21)
[2017-11-05] MEDS ORDERED: CEFAZOLIN2 GM/50 ML IV (10:37)
[2017-11-05] MEDS ORDERED: MIDODRINE HCL10 MG ORAL (10:37)
[2017-11-05 12:10] VITALS: BP 114/68
[2017-11-05 16:00] VITALS: BP 143/83
[2017-11-05 20:00] VITALS: BP 112/81
[2017-11-06] VITALS: BP 105/60
[2017-11-06 04:00] VITALS: BP 113/70
[2017-11-06] MEDS: Midodrine 10mg tab ORAL SCH ×2 (05:12→13:47)
--- NOTE | 2017-11-06 07:54 | Diagnostic Imaging Report ---
APPROVED REPORT CPT Code: 24346 Present Symptoms Shortness of breath BILATERAL: Imaging reveals a patent deep venous system bilaterally. There is no evidence of thrombus within the femoral, popliteal or tibial segments. The greater saphenous veins are also within normal limits. Doppler indicates normal spontaneous flow within these segments.
[2017-11-06] MEDS: Vitamin D 1000 IU Tab ORAL SCH (08:03)
[2017-11-06 08:19] VITALS: BP 135/97
--- NOTE | 2017-11-06 10:48 | Infectious Diseases Prog Note ---
Assessment/Plan Assessment/Plan antibiotics : none A 1. e.coli sepsis s/p rx 2. staph aureus pneumonia s/p rx 3. shock resolved 4. respiratory failure resolved 5. renal failure resolved 6. Downs syndrome 7. leucocytosis resolved P 1. continue off antibiotics Subjective ROS Limited/Unobtainable: Yes Allergies: Coded Allergies: No Known Allergies (Unverified , 10/23/17) Objective Vital Signs Last 24 Hour Vital Signs Date Time Temp Pulse Resp B/P (MAP) Pulse Ox O2 Delivery O2 Flow Rate FiO2 11/06/17 09:13 Nasal Cannula 3.0 11/06/17 08:19 98.1 100 20 135/97 (110) 96 98.1 11/06/17 07:20 Nasal Cannula 3.0 11/06/17 07:20 96 Nasal Cannula 3.0 32 11/06/17 04:00 98.0 95 21 113/70 (84) 96 98.0 11/06/17 04:00 70 11/06/17 00:00 98.0 83 20 105/60 (75) 94 98.0 11/06/17 00:00 77 11/05/17 21:00 Nasal Cannula 3.0 11/05/17 20:00 98.3 102 23 112/81 (91) 95 98.3 11/05/17 20:00 93 11/05/17 19:00 97 Nasal Cannula 3.0 32 11/05/17 19:00 Nasal Cannula 3.0 11/05/17 16:00 98.1 87 20 143/83 (103) 97 98.1 11/05/17 16:00 93 11/05/17 12:10 98.4 76 18 114/68 (83) 97 98.4 11/05/17 12:00 79 Height (Feet): 5 Height (Inches): 1.00 Weight (Pounds): 94 Respiratory/Chest: lungs clear Cardiovascular: normal rate, regular rhythm, no gallop/murmur Abdomen: soft, non tender Extremities: no edema Current Medications Medications (Trade) Dose Ordered Sig/Merlene Route PRN Reason Start Time Stop Time Status Last Admin Dose Admin Acetaminophen (Tylenol) 650 mg Q4H PRN ORAL Mild Pain/Temp > 100.5 11/03/17 09:00 11/23/17 16:59 Docusate Sodium (Colace) 100 mg DAILY PRN ORAL Constipation 11/03/17 09:00 11/23/17 02:29 Midodrine (Pro-Amatine) 10 mg EVERY 8 HOURS ORAL 11/03/17 14:00 11/30/17 21:59 11/06/17 05:12 Quetiapine Fumarate (SEROquel) 12.5 mg Q4H PRN ORAL agitation 11/04/17 12:15 12/04/17 12:14 11/05/17 21:02 Vitamin D (Vitamin D) 1,000 intlu DAILY ORAL 11/03/17 09:00 11/23/17 08:59 11/06/17 08:03 DISHA QUESADA Nov 06, 2017 10:48
[2017-11-06 12:00] VITALS: BP 108/69
--- NOTE | 2017-11-06 14:40 | General Progress Note ---
Assessment/Plan Assessment/Plan DD Agitation cognitive impairment Seroquel prn cont restraint Subjective Date patient seen: Nov 06, 2017 Neurologic/Psychiatric: Reports: anxiety, emotional problems Allergies: Coded Allergies: No Known Allergies (Unverified , 10/23/17) Subjective the pt is still agitated and attempting to come out of bed Objective Last 24 Hour Vital Signs Date Time Temp Pulse Resp B/P (MAP) Pulse Ox O2 Delivery O2 Flow Rate FiO2 11/06/17 12:00 97.9 89 20 108/69 (82) 93 97.9 11/06/17 09:13 Nasal Cannula 3.0 11/06/17 08:19 98.1 100 20 135/97 (110) 96 98.1 11/06/17 08:00 98 11/06/17 07:20 Nasal Cannula 3.0 11/06/17 07:20 96 Nasal Cannula 3.0 32 11/06/17 04:00 98.0 95 21 113/70 (84) 96 98.0 11/06/17 04:00 70 11/06/17 00:00 98.0 83 20 105/60 (75) 94 98.0 11/06/17 00:00 77 11/05/17 21:00 Nasal Cannula 3.0 11/05/17 20:00 98.3 102 23 112/81 (91) 95 98.3 11/05/17 20:00 93 11/05/17 19:00 97 Nasal Cannula 3.0 32 11/05/17 19:00 Nasal Cannula 3.0 11/05/17 16:00 98.1 87 20 143/83 (103) 97 98.1 11/05/17 16:00 93 Intake and Output 11/05/17 11/06/17 19:00 07:00 Intake Total 550 ml 200 ml Output Total 400 ml 250 ml Balance 150 ml -50 ml Intake Oral 550 ml 200 ml Output Urine Total 400 ml 250 ml Height (Feet): 5 Height (Inches): 1.00 Weight (Pounds): 94 General Appearance: no apparent distress, alert, confused, agitated Charissa Beltran MD Nov 06, 2017 14:40
[2017-11-06 16:00] VITALS: BP 151/63
--- NOTE | 2017-11-06 17:14 | General Progress Note ---
Assessment/Plan Assessment/Plan IMPRESSION: 1. sepsis. 2. Acute on chronic encephalopathy. 3. Hypernatremia. 4. Acute renal failure. 5. Severe protein-calorie malnutrition. 6. Leukocytosis. 7. Anemia. 8. Down syndrome. 9. rhabdo 10. respiratory failure PLAN po with caution lasix x 1 check cxr and bnp and bmp dc to board and care Subjective ROS Limited/Unobtainable: Yes Allergies: Coded Allergies: No Known Allergies (Unverified , 10/23/17) Subjective tolerating po overall same no distress Objective Last 24 Hour Vital Signs Date Time Temp Pulse Resp B/P (MAP) Pulse Ox O2 Delivery O2 Flow Rate FiO2 11/06/17 16:00 97.5 84 20 151/63 (92) 93 97.5 11/06/17 12:00 97.9 89 20 108/69 (82) 93 97.9 11/06/17 09:13 Nasal Cannula 3.0 11/06/17 08:19 98.1 100 20 135/97 (110) 96 98.1 11/06/17 08:00 98 11/06/17 07:20 Nasal Cannula 3.0 11/06/17 07:20 96 Nasal Cannula 3.0 32 11/06/17 04:00 98.0 95 21 113/70 (84) 96 98.0 11/06/17 04:00 70 11/06/17 00:00 98.0 83 20 105/60 (75) 94 98.0 11/06/17 00:00 77 11/05/17 21:00 Nasal Cannula 3.0 11/05/17 20:00 98.3 102 23 112/81 (91) 95 98.3 11/05/17 20:00 93 11/05/17 19:00 97 Nasal Cannula 3.0 32 11/05/17 19:00 Nasal Cannula 3.0 Intake and Output 11/05/17 11/06/17 19:00 07:00 Intake Total 550 ml 200 ml Output Total 400 ml 250 ml Balance 150 ml -50 ml Intake Oral 550 ml 200 ml Output Urine Total 400 ml 250 ml Height (Feet): 5 Height (Inches): 1.00 Weight (Pounds): 94 Objective WDWN NAD and more awake on o2 reduced breath sounds bilaterally [id number] without MRG NABS nontender no HSM no CCE short stature reduced LOC Ishaaya,Guero M MD Nov 06, 2017 17:13
--- NOTE | 2017-11-07 13:04 | Discharge Summary ---
Discharge Summary Discharge Summary _ DATE OF ADMISSION: 10/23/2017 DATE OF DISCHARGE: 11/06/2017 CONSULTANTS: Dr. Viktoria Winkler/Dr. Ryan Busby BRIEF HOSPITAL COURSE: Patient is a 52-year-old male, with history of Down syndrome was brought in by caregiver as he was noted to be more altered than baseline and had fever at the [facility]. On arrival to ED, he was hypotensive, blood pressure 75/44, heart rate of 142, temperature was 101.5, he was saturating 92% on room air. He was tachypneic and mottled. He was given IV fluids. Blood work showed elevated creatinine to 2.3, BUN was 31. He was hypernatremic, and hypokalemia. There was evidence of dehydration. Lactic acid was elevated to 2.5. He was acidotic. Chest x-ray showed haziness in the right lower lobe. CT of the abdomen and pelvis showed bilateral basilar pulmonary parenchymal disease, colon wall thickening suspected colitis, distended urinary bladder with wall thickening. He was then admitted to ICU. He was placed on BiPAP. He was started on IV pressors. He was seen by infectious disease specialist and was given Zosyn. He was followed by administrative volunteer. Kidney function was monitored. Patient has hypernatremia with approximately 4-5 L of free water deficit. He had acute kidney injury secondary to multifactorial acute tubular necrosis secondary to hypotension and urinary retention. He had elevated CK. He needed IV access and a right subclavian central venous catheter was inserted, however was noted to go into internal jugular. Attempts to rewire failed, a right femoral line was then placed. On 10/27/2017, patient was acidotic with increased CO2 and worsening ABG. He also had increased hazy opacities in the lungs. He was orally intubated and hooked on ventilator. Venous duplex was negative for acute DVT. Antibiotics were adjusted. Blood culture showed growth of Escherichia coli. Sputum culture with Staphylococcus aureus. Vancomycin and ceftriaxone was discontinued. He was started on Ancef. Stool C diff negative. He was eventually able to be weaned off ventilator support. He was extubated on 10/31/2017 and was eventually taken off IV pressors. He had episodes of agitation and was given Seroquel. He was transferred out of ICU. Video swallow evaluation was done. He was recommended pured like nectar thick soup consistency diet with nectar thick liquids and strict aspiration precaution. He was saturating well on nasal cannula. He was tolerating po. He was discharged back to board and care. FINAL DIAGNOSES: E. coli Sepsis, Pneumonia with staph aureus Acute on chronic encephalopathy Hypernatremia Acute renal failure Severe protein calorie malnutrition Leukocytosis Anemia Down syndrome Acute rhabdomyolysis Acute respiratory failure requiring intubation status post extubation Agitation Cognitive impairment DISPOSITION: Patient was discharged back to board and care. DISCHARGE MEDICATIONS: Refer to Discharge Medication List. DISCHARGE INSTRUCTIONS: Follow up with PCP in a week. I have been assigned to dictate discharge summary on this account, and I was not involved in the patient's management. Jenniffer Nur NP Nov 07, 2017 13:04
--- NOTE | 2017-11-07 16:55 | Diagnostic Imaging Report ---
Indications: Dysphagia Technique: Patient ingested multiple substances under the supervision of speech pathology. Video fluoroscopic recording performed. Total fluoroscopy time 258 seconds. Total dose area product 0.34102 mGycm2. Total number of fluoroscopic runs-8 Comparison: none Findings: No evidence of aspiration or penetration. No significant early or residual pooling Impression: Negative for evidence of aspiration or penetration Please refer to speech pathology report for more detailed analysis
== END 2017-11-06 20:25 | DRG 720 ==
LOC: EMR 22:15 → ICU 22:37 → EDBEDREQ 22:43 → ICU 23:22 → 2W 11-02 16:30 → 2E 11-03 05:58
PROC: 05H533Z Insertion of Infusion Device into Right Subclavian Vein, Percutaneous Approach (ICD-10-PCS; principal; 2017-10-25)
PROC: 06HM33Z Insertion of Infusion Device into Right Femoral Vein, Percutaneous Approach (ICD-10-PCS; 2017-10-25)
PROC: 5A1955Z Respiratory Ventilation, Greater than 96 Consecutive Hours (ICD-10-PCS; 2017-10-27)
PROC: 0BH17EZ Insertion of Endotracheal Airway into Trachea, Via Natural or Artificial Opening (ICD-10-PCS; 2017-10-27)
DX: A41.51 Sepsis due to Escherichia coli [E. coli] (principal); J96.00 Acute respiratory failure, unspecified whether with hypoxia or hypercapnia; E43 Unspecified severe protein-calorie malnutrition; N17.0 Acute kidney failure with tubular necrosis; R65.21 Severe sepsis with septic shock; G93.41 Metabolic encephalopathy; J15.211 Pneumonia due to Methicillin susceptible Staphylococcus aureus; E86.0 Dehydration; N39.0 Urinary tract infection, site not specified; M62.82 Rhabdomyolysis; E87.0 Hyperosmolality and hypernatremia; Q90.9 Down syndrome, unspecified; E78.5 Hyperlipidemia, unspecified; E55.9 Vitamin D deficiency, unspecified; Z68.1 Body mass index [BMI] 19.9 or less, adult; D64.9 Anemia, unspecified; R94.5 Abnormal results of liver function studies; E87.6 Hypokalemia; R33.9 Retention of urine, unspecified; G31.84 Mild cognitive impairment of uncertain or unknown etiology
CPT/HCPCS: 36415; 36600; 71045; 74018; 74176; 74230; 80048; 80053; 80202; 82270; 82550; 82553; 82803; 82962; 83605; 83690; 84132; 84484; 85007; 85025; 87040; 87070; 87081; 87086; 87181; 87205; 87324; 93005; 93306; 93970; 94002; 94003; 94660; 94664; 94760; 97803; 99291

== ENCOUNTER 2017-11-11 02:54 | Emergency (ER) | payer OTHER ==
[~2017-11-11] VITALS: Ht 149.9 cm; Wt 36.3 kg
[~2017-11-11 02:54] MED LIST: CEFAZOLIN2 GM/50 ML IV; COLACE100 MG ORAL; MIDODRINE HCL10 MG ORAL; VITAMIN D1000 UNI1 ORAL; ZOCOR20 M1 ORAL
[2017-11-11 03:21] VITALS: BP 96/51
--- NOTE | 2017-11-11 03:28 | Emergency Room Report ---
History of Present Illness General Chief Complaint: Dyspnea/Respdistress Source: Family Member Present Illness HPI Is a 52-year-old male who is MRCP. He was brought in by freight dispatcher for chief complaint of dyspnea. He is a new resident at her place. He was taking deep breath and appear to be short of breath. He is back to baseline now. He was recently admitted here for urinary tract infection and sepsis. No nausea vomiting. No fever or chills. Able to get any history from patient because of his condition. Allergies: Coded Allergies: No Known Allergies (Unverified , 10/23/17) Patient History Past Medical History: see triage record, old chart reviewed Past Surgical History: none Pertinent Family History: none Social History: Denies: smoking Immunizations: other Reviewed Nursing Documentation: PMH: Agreed; PSxH: Agreed Nursing Documentation-PMH Hx Cardiac Problems: No Hx Cancer: No Hx Gastrointestinal Problems: Yes - constipation/diarrhea Hx Neurological Problems: Yes - Down Syndrome Review of Systems Eye: Denies: eye pain, blurred vision ENT: Denies: ear pain, nose congestion, throat swelling Respiratory: Reports: shortness of breath; Denies: cough Cardiovascular: Denies: chest pain, palpitations Gastrointestinal: Denies: abdominal pain, diarrhea, nausea, vomiting Musculoskeletal: Denies: back pain, joint pain Skin: Denies: rash Neurological: Denies: headache, numbness Endocrine: Denies: increased thirst, increased urine Hematologic/Lymphatic: Denies: easy bruising All Other Systems: negative except mentioned in HPI Physical Exam Vital Signs Date Time Temp Pulse Resp B/P (MAP) Pulse Ox O2 Delivery O2 Flow Rate FiO2 11/11/17 03:05 97.5 84 16 96/51 97 Room Air 97.5 vitals normal Sp02 EP Interpretation: reviewed, normal General Appearance: well appearing, no apparent distress, alert Head: normocephalic, atraumatic Eyes: bilateral eye PERRL, bilateral eye EOMI ENT: hearing grossly normal, normal pharynx Neck: full range of motion, supple, no meningismus Respiratory: chest non-tender, lungs clear, normal breath sounds Cardiovascular #1: regular rate, rhythm, no murmur Gastrointestinal: normal bowel sounds, non tender, no mass, no organomegaly, no bruit, non-distended Musculoskeletal: back normal, normal range of motion, other - Contracted Psychiatric: mood/affect normal Skin: warm/dry Medical Decision Making Diagnostic Impression: Primary Impression: Dyspnea Qualified Codes: R06.00 - Dyspnea, unspecified ER Course Patient with questionable dyspnea. Symptom resolved. Oxygenation is 100% . Lungs are clear. This may be a behavioral issue. Since he is stable, I see no need for further workup. Last Vital Signs Date Time Temp Pulse Resp B/P (MAP) Pulse Ox O2 Delivery O2 Flow Rate FiO2 11/11/17 03:21 84 16 Room Air 11/11/17 03:21 97.5 96/51 97 97.5 Status: improved Disposition: HOME, SELF-CARE Condition: Stable Patient Instructions: Shortness of Breath, [id number] Additional Instructions: Follow-up your doctor as needed. Return for fever, congestion or any concern. CABRERA GARCIA M.D. Nov 11, 2017 03:28
[2017-11-11 03:45] VITALS: BP 96/51
== END 2017-11-11 03:47 | disposition home or self-care (01) ==
LOC: EMR 03:25
DX: R06.00 Dyspnea, unspecified (principal)
CPT/HCPCS: 99283

== ENCOUNTER 2018-12-28 10:06 | Emergency (ER) | payer OTHER ==
[~2018-12-28] VITALS: Ht 147.3 cm; Wt 39.0 kg
--- NOTE | 2018-12-28 10:31 | NUR ---
ED Nurse Note: PT WALKED IN TO ER TODAY FROM BOARD CARE ACCOMPANIED BY GUEST SERVICES LEAD. PT HAS HX OF DOWN SYNDROME. PT NONVERBAL AND NOT RESPONSIVE TO QUESTIONS. PER GUEST SERVICES LEAD, SHE BELIEVES HE DID NOT HAVE A BOWEL MOVEMENT IN THE LAST 3 DAYS. GUEST SERVICES LEAD STATES HE DID HAVE A SMALL BOWEL MOVEMENT THIS AM. GUEST SERVICES LEAD STATES ORAL INTAKE HAS BEEN NORMAL. GUEST SERVICES LEAD DENIES PT VOMITING. ACTIVE BOWEL SOUNDS IN ALL QUADRANTS. ABDOMEN NONDISTENDED AND NONTENDER TO PALPATION.
[2018-12-28 10:33] VITALS: BP 122/74
--- NOTE | 2018-12-28 10:41 | Emergency Room Report ---
History of Present Illness General Chief Complaint: General Complaint Source: Patient Present Illness HPI Patient presents with catering administrative assistant for reports of 2 days of decreased bowel movement Patient himself has not appeared uncomfortable there was no vomiting or fevers Province Archivist denies any recent trauma Denies any appearance of discomfort patient has Down syndrome and has difficulty providing history This does limit the history of present illness Allergies: Coded Allergies: No Known Allergies (Unverified , 10/23/17) Patient History Limited by: medical condition Past Medical History: see triage record Reviewed Nursing Documentation: PMH: Agreed; PSxH: Agreed Nursing Documentation-PMH Past Medical History: No History, Except For Hx Cardiac Problems: No Hx Cancer: No Hx Gastrointestinal Problems: Yes - constipation/diarrhea Hx Neurological Problems: Yes - Down Syndrome Review of Systems All Other Systems: limited - Other than the ones mentioned in the history of present illness all others are reviewed however they do stay limited due to the patient's mental status Physical Exam Vital Signs Date Time Temp Pulse Resp B/P (MAP) Pulse Ox O2 Delivery O2 Flow Rate FiO2 12/28/18 10:14 90 20 125/70 (88) 96 Room Air 12/28/18 10:33 98.1 Sp02 EP Interpretation: reviewed, normal General Appearance: well appearing, no apparent distress Head: other - Microcephalic Eyes: bilateral eye PERRL ENT: normal pharynx, no angioedema Neck: supple Respiratory: lungs clear, no retraction, no accessory muscle use Cardiovascular #1: regular rate, rhythm Gastrointestinal: normal bowel sounds, soft Genitourinary: no CVA tenderness Musculoskeletal: normal inspection Neurologic: alert, responsive Skin: other - Several areas of abrasion appears to be scratch ricardo Lymphatic: no adenopathy Medical Decision Making Diagnostic Impression: Primary Impression: Encounter for medical screening examination ER Course With the history exam and presentation, multiple differentials considered, including but not limited to appendicitis, gastritis, cholecystitis, diverticulitis Patient's abdomen is soft Given the difficulty obtaining full history KUB was obtained no obvious pathology is seen there was questionable artifact versus kidney stone Patient resting comfortably afebrile hemodynamically stable Caretakers feel that the patient is likely constipated and we will have initial conservative outpatient trial Other X-Ray Diagnostic Results Other X-Ray Diagnostic Results : X-Ray ordered: kub # of Views/Limited Vs Complete: 1 View Indication: Pain EP Interpretation: Yes Interpretation: no soft tissue swelling, nonspecific bowel gas, no sbo Impression: No acute disease Electronically Signed by: Erika Rodriguez DO Last Vital Signs Date Time Temp Pulse Resp B/P (MAP) Pulse Ox O2 Delivery O2 Flow Rate FiO2 12/28/18 10:33 98.1 86 18 122/74 98 Room Air Status: improved Disposition: HOME, SELF-CARE Condition: Improved Scripts Magnesium Citrate (MAGNESIUM CITRATE) 296 Ml Solution 150 ML PO DAILY for 3 Days, ML Prov: Erika Rodriguez DO 12/28/18 Additional Instructions: Patient is provided with the discharge instructions notified to follow up with primary doctor in the next 2-3 days otherwise return to the er with any worsening symptoms. Please note that this report is being documented using [employer] technology. This can lead to erroneous entry secondary to incorrect interpretation by the dictating instrument. Erika Rodriguez DO Dec 28, 2018 10:41
--- NOTE | 2018-12-28 10:50 | NUR ---
ED Nurse Note: XRAY AT BEDSIDE.
[2018-12-28] MEDS ORDERED: MAGNESIUM CITR296 M1 PO (11:10)
--- NOTE | 2018-12-28 11:17 | NUR ---
ED Nurse Note: PT LAYING PEACEFULLY IN BED IN NAD. DISTRICT SERVICE MANAGER AT BEDSIDE. PRESCRIPTION AND DISCHARGE PAPERWORK EXPLAINED TO DISTRICT SERVICE MANAGER. DISTRICT SERVICE MANAGER VERBALIZES UNDERSTANDING AND ALL QUESTIONS ANSWERED. PRESCRIPTION AND DISCHARGE PAPERWORK GIVEN TO DISTRICT SERVICE MANAGER AND ID WRISTBAND REMOVED. PT WALKED OUT OF ER WITH STEADY GAIT AND ALL BELONGINGS ACCOMPANIED BY DISTRICT SERVICE MANAGER.
[2018-12-28 11:19] VITALS: BP 118/72
--- NOTE | 2018-12-28 11:53 | Diagnostic Imaging Report ---
EXAM: XR Abdomen, 1 View CLINICAL HISTORY: PAIN TECHNIQUE: Frontal view of the abdomen. COMPARISON: Abdominal x-ray dated 10 27 17 FINDINGS: Lower thorax: Visualized lungs appear clear. Intraperitoneal space: No free air. Gastrointestinal tract: Mild diffuse colonic fecal retention, which may suggest constipation. The bowel gas pattern otherwise appears unremarkable. Organs: 3 mm density overlying the left renal shadow, which may represent nephrolithiasis versus radiodense luminal material in overlying bowel. Bones joints: Unremarkable. IMPRESSION: 1. 3 mm density overlying the left renal shadow, which may represent nephrolithiasis versus radiodense luminal material in overlying bowel. 2. Mild diffuse colonic fecal retention, which may suggest constipation.
== END 2018-12-28 12:00 | disposition home or self-care (01) ==
LOC: EMR 11:55
DX: K59.00 Constipation, unspecified (principal); T14.8XXA Other injury of unspecified body region, initial encounter; X58.XXXA Exposure to other specified factors, initial encounter; Y92.9 Unspecified place or not applicable; Q90.9 Down syndrome, unspecified
CPT/HCPCS: 74018; Z7502; 99283

== ENCOUNTER 2019-11-10 11:08 | Inpatient (IN) | payer OTHER ==
[~2019-11-10] VITALS: Ht 152.4 cm; Wt 38.6 kg
[~2019-11-10 11:08] MED LIST changes: +MAGNESIUM CITR296 M1 PO
--- NOTE | 2019-11-10 11:27 | Emergency Room Report ---
History of Present Illness General Chief Complaint: Gastrointestinal Bleed Source: Patient, Caregiver Present Illness HPI Patient is a 54-year-old male brought in from his boarding care for bright red blood per rectum. Per caregiver who is with him patient has a history of severe MR and therefore history is taken from her. She states that he had one episode of bloody bowel movement today. Patient does not appear to be in any pain. She states that he has a history of bleeding from the rectum previously. Unable to obtain further history at this time. Allergies: Coded Allergies: No Known Allergies (Unverified , 10/23/17) COVID-19 Screening Contact w/high risk pt: No Experienced COVID-19 symptoms?: Yes COVID-19 Testing performed CONVERSION WORKER: No Patient History Reviewed Nursing Documentation: PMH: Agreed; PSxH: Agreed Nursing Documentation-PM Past Medical History: No History, Except For Hx Cancer: No Hx Gastrointestinal Problems: Yes - constipation/diarrhea Hx Neurological Problems: Yes - Down Syndrome Review of Systems All Other Systems: limited - severe MR Physical Exam Vital Signs Date Time Temp Pulse Resp B/P (MAP) Pulse Ox O2 Delivery O2 Flow Rate FiO2 11/10/19 11:14 111 20 150/85 (106) 97 Room Air Sp02 EP Interpretation: reviewed, normal General Appearance: no apparent distress Head: normocephalic, atraumatic Eyes: bilateral eye normal inspection, bilateral eye PERRL ENT: hearing grossly normal Neck: full range of motion, no meningismus Respiratory: chest non-tender, no respiratory distress Cardiovascular #1: normal capillary refill, tachycardia Cardiovascular #2: 2+ radial (R), 2+ radial (L) Gastrointestinal: non tender, soft, no guarding, no rebound Rectal: heme positive stool Musculoskeletal: moves extm spontaneously, other - Lordosis Psychiatric: anxious Skin: other - Dry skin diffusely with excoriations Lymphatic: no adenopathy Procedures Critical Care Time Critical Care Time Total critical care time: Approximately 35 minutes. Due to a high probability of clinically significant, life threatening deterioration, the patient required my highest level of preparedness to intervene emergently and I personally spent this critical care time directly and personally managing the patient. This critical care time included obtaining a history; examining the patient; pulse oximetry; ordering and review of studies; arranging urgent treatment with development of a management plan; evaluation of patient's response to treatment ; frequent reassessment; and, discussions with other providers.This critical care time was performed to assess and manage the high probability of imminent, life-threatening deterioration that could result in multi-organ failure. It was exclusive of separately billable procedures and treating other patients and teaching time. Please see MDM section and the rest of the note for further information on patient assessment and treatment. Medical Decision Making Diagnostic Impression: Primary Impression: GI bleed Additional Impression: Sepsis ER Course Patient has white blood cell count of 13,000. Patient has no abdominal pain on exam. Patient is guaiac positive. Patient started on Protonix 80 mg IV push and 8 mg/h. Patient's H&H is stable. Patient has lactic acidosis of 2.2. 2 L of IV fluids have been ordered as well as 2 g of Rocephin. Patient will be admitted for further treatment and evaluation. Laboratory Tests Test 11/10/19 11:45 White Blood Count 13.0 K/UL (4.8-10.8) H Red Blood Count 4.67 M/UL (4.70-6.10) L Hemoglobin 15.1 G/DL (14.2-18.0) Hematocrit 47.6 % (42.0-52.0) Mean Corpuscular Volume 102 FL (80-99) H Mean Corpuscular Hemoglobin 32.3 PG (27.0-31.0) H Mean Corpuscular Hemoglobin Concent 31.7 G/DL (32.0-36.0) L Red Cell Distribution Width 12.3 % (11.6-14.8) Platelet Count 252 K/UL (150-450) Mean Platelet Volume 6.5 FL (6.5-10.1) Neutrophils (%) (Auto) 72.7 % (45.0-75.0) Lymphocytes (%) (Auto) 19.5 % (20.0-45.0) L Monocytes (%) (Auto) 6.6 % (1.0-10.0) Eosinophils (%) (Auto) 0.6 % (0.0-3.0) Basophils (%) (Auto) 0.7 % (0.0-2.0) Prothrombin Time 12.8 SEC (9.30-11.50) H Prothrombin Time INR 1.2 (0.9-1.1) H Activated Partial Thromboplast Time 34 SEC (23-33) H Sodium Level 139 MMOL/L (136-145) Potassium Level 3.7 MMOL/L (3.5-5.1) Chloride Level 103 MMOL/L (98-107) Carbon Dioxide Level 29 MMOL/L (21-32) Anion Gap 7 mmol/L (5-15) Blood Urea Nitrogen 18 mg/dL (7-18) Creatinine 1.2 MG/DL (0.55-1.30) Estimated Glomerular Filtration Rate > 60 mL/min (>60) Glucose Level 102 MG/DL (74-106) Lactic Acid Level 2.20 mmol/L (0.4-2.0) H Calcium Level 9.4 MG/DL (8.5-10.1) Total Bilirubin 0.5 MG/DL (0.2-1.0) Aspartate Amino Transferase (AST) 30 U/L (15-37) Alanine Aminotransferase (ALT) 28 U/L (12-78) Alkaline Phosphatase 101 U/L (46-116) Total Protein 8.3 G/DL (6.4-8.2) H Albumin 3.8 G/DL (3.4-5.0) Globulin 4.5 g/dL Albumin/Globulin Ratio 0.8 (1.0-2.7) L Lipase 134 U/L (73-393) Last Vital Signs Date Time Temp Pulse Resp B/P (MAP) Pulse Ox O2 Delivery O2 Flow Rate FiO2 11/10/19 11:14 111 20 150/85 (106) 97 Room Air Disposition: ADMITTED INPATIENT Condition: Critical Physician Consult: Dr. Suzy MD at 1252pm Additional Instructions: Please note that this report is being documented using [employer] technology. This can lead to erroneous entry secondary to incorrect interpretation by the dictating instrument. Sepsis Event Note Evaluation Current Stage of Sepsis: Sepsis Possible Source: GI Tract/Intra-Abdominal Focused Exam Allergies: Coded Allergies: No Known Allergies (Unverified , 10/23/17) Date Exam Occurred: Nov 10, 2019 Time Exam Occurred: 12:53 Laboratory Studies Laboratory Tests Test 11/10/19 11:45 White Blood Count 13.0 K/UL (4.8-10.8) H Red Blood Count 4.67 M/UL (4.70-6.10) L Hemoglobin 15.1 G/DL (14.2-18.0) Hematocrit 47.6 % (42.0-52.0) Mean Corpuscular Volume 102 FL (80-99) H Mean Corpuscular Hemoglobin 32.3 PG (27.0-31.0) H Mean Corpuscular Hemoglobin Concent 31.7 G/DL (32.0-36.0) L Red Cell Distribution Width 12.3 % (11.6-14.8) Platelet Count 252 K/UL (150-450) Mean Platelet Volume 6.5 FL (6.5-10.1) Neutrophils (%) (Auto) 72.7 % (45.0-75.0) Lymphocytes (%) (Auto) 19.5 % (20.0-45.0) L Monocytes (%) (Auto) 6.6 % (1.0-10.0) Eosinophils (%) (Auto) 0.6 % (0.0-3.0) Basophils (%) (Auto) 0.7 % (0.0-2.0) Prothrombin Time 12.8 SEC (9.30-11.50) H Prothromb Time International Ratio 1.2 (0.9-1.1) H Activated Partial Thromboplast Time 34 SEC (23-33) H Sodium Level 139 MMOL/L (136-145) Potassium Level 3.7 MMOL/L (3.5-5.1) Chloride Level 103 MMOL/L (98-107) Carbon Dioxide Level 29 MMOL/L (21-32) Anion Gap 7 mmol/L (5-15) Blood Urea Nitrogen 18 mg/dL (7-18) Creatinine 1.2 MG/DL (0.55-1.30) Estimat Glomerular Filtration Rate > 60 mL/min (>60) Glucose Level 102 MG/DL (74-106) Lactic Acid Level 2.20 mmol/L (0.4-2.0) H Calcium Level 9.4 MG/DL (8.5-10.1) Total Bilirubin 0.5 MG/DL (0.2-1.0) Aspartate Amino Transf (AST/SGOT) 30 U/L (15-37) Alanine Aminotransferase (ALT/SGPT) 28 U/L (12-78) Alkaline Phosphatase 101 U/L (46-116) Total Protein 8.3 G/DL (6.4-8.2) H Albumin 3.8 G/DL (3.4-5.0) Globulin 4.5 g/dL Albumin/Globulin Ratio 0.8 (1.0-2.7) L Lipase 134 U/L (73-393) Vital Signs Last 24 Hour Vital Signs Date Time Temp Pulse Resp B/P (MAP) Pulse Ox O2 Delivery O2 Flow Rate FiO2 11/10/19 11:14 111 20 150/85 (106) 97 Room Air Respiratory Exam: Clear Cardiovascular Exam: Tachycardia Capillary Refill: Less Than 2 Seconds Peripheral Pulse: Tiffanie Medina M.D. Nov 10, 2019 11:27
[2019-11-10] MEDS ORDERED: Pantoprazole 80 MG in NS 250 ML IV ONE (11:45)
[2019-11-10] MEDS ORDERED: Pantoprazole Inj IVP ONE (11:45)
[2019-11-10 12:01] LABS: BASOPHILS % (AUTO) 0.7 % (0.0-2.0); EOSINOPHILS % (AUTO) 0.6 % (0.0-3.0); HEMATOCRIT 47.6 % (42.0-52.0); HEMOGLOBIN 15.1 G/DL (14.2-18.0); LYMPHOCYTES % (AUTO) 19.5 % (20.0-45.0); MEAN CORPUSCULAR VOLUME 102 FL (80-99); MONOCYTES % (AUTO) 6.6 % (1.0-10.0); NEUTROPHILS % (AUTO) 72.7 % (45.0-75.0); PLATELET COUNT 252 K/UL (150-450); RED BLOOD COUNT 4.67 M/UL (4.70-6.10); RED CELL DISTRIBUTION WIDTH 12.3 % (11.6-14.8)
[2019-11-10 12:08] LABS: ANION GAP 7 mmol/L (5-15); BLOOD UREA NITROGEN 18 mg/dL (7-18); CALCIUM 9.4 MG/DL (8.5-10.1); CARBON DIOXIDE 29 MMOL/L (21-32); CHLORIDE 103 MMOL/L (98-107); CREATININE 1.2 MG/DL (0.55-1.30); POTASSIUM 3.7 MMOL/L (3.5-5.1); SODIUM 139 MMOL/L (136-145)
[2019-11-10 12:09] LABS: INR 1.2 (0.9-1.1)
[2019-11-10 12:30] LABS: ALANINE AMINOTRANSFERASE 28 U/L (12-78); ALBUMIN 3.8 G/DL (3.4-5.0); ALBUMIN/GLOBULIN RATIO 0.8 (1.0-2.7); ALKALINE PHOSPHATASE 101 U/L (46-116); ASPARTATE AMINO TRANSFERASE 30 U/L (15-37); BILIRUBIN,TOTAL 0.5 MG/DL (0.2-1.0)
[2019-11-10] MEDS ORDERED: LORazepam Inj 2mg/ml 1ml IV ONE (12:45)
[2019-11-10] MEDS ORDERED: cefTRIAXone 2 GM in NS 55 ML IVPB ONE (12:45)
[2019-11-10 13:00] VITALS: BP 150/85
--- NOTE | 2019-11-10 13:23 | Diagnostic Imaging Report ---
Procedure: XRAY Chest 1v Reason for study: Chest pain Comparison films: 11/03/2017. FINDINGS: Left apex is partially obscured by the patient's neck. Vascularity is normal. There is mild chronic interstitial prominence. No acute alveolar process. Cardiac and mediastinal silhouette are within normal limits. CP angles are sharp. The bony thorax appear unremarkable. IMPRESSION: NO ACUTE CARDIOPULMONARY DISEASE.
[2019-11-10 13:47] VITALS: BP 146/83
[2019-11-10 14:00] VITALS: BP 97/64
[2019-11-10] MEDS ORDERED: D5NS 1,000 ML IV SCH (15:00)
--- NOTE | 2019-11-10 15:21 | General Progress Note ---
Assessment/Plan Problem List: (1) GI bleed ICD Codes: K92.2 - Gastrointestinal hemorrhage, unspecified SNOMED: 42183430 Assessment/Plan: GIB plan EGd and colonoscopy for tomorrow repeat labs ivf Subjective ROS Limited/Unobtainable: No Allergies: Coded Allergies: No Known Allergies (Unverified , 10/23/17) Objective Last 24 Hour Vital Signs Date Time Temp Pulse Resp B/P (MAP) Pulse Ox O2 Delivery O2 Flow Rate FiO2 11/10/19 14:52 Room Air 11/10/19 14:05 98.8 20 146/83 97 Room Air 11/10/19 13:57 95 20 Room Air 11/10/19 13:47 98.8 95 20 146/83 97 Room Air 11/10/19 13:00 98.8 20 150/85 97 Room Air 11/10/19 11:14 111 20 150/85 (106) 97 Room Air Laboratory Tests 11/10/19 11:45: White Blood Count 13.0H, Red Blood Count 4.67L, Hemoglobin 15.1, Hematocrit 47.6 , Mean Corpuscular Volume 102H, Mean Corpuscular Hemoglobin 32.3H, Mean Corpuscular Hemoglobin Concent 31.7L, Red Cell Distribution Width 12.3, Platelet Count 252, Mean Platelet Volume 6.5, Neutrophils (%) (Auto) 72.7, Lymphocytes (%) (Auto) 19.5L, Monocytes (%) (Auto) 6.6, Eosinophils (%) (Auto) 0.6, Basophils (%) (Auto) 0.7, Prothrombin Time 12.8H, Prothromb Time International Ratio 1.2H, Activated Partial Thromboplast Time 34H, Sodium Level 139, Potassium Level 3.7, Chloride Level 103, Carbon Dioxide Level 29, Anion Gap 7, Blood Urea Nitrogen 18, Creatinine 1.2, Estimat Glomerular Filtration Rate > 60, Glucose Level 102, Lactic Acid Level 2.20H, Calcium Level 9.4, Total Bilirubin 0.5, Aspartate Amino Transf (AST/SGOT) 30, Alanine Aminotransferase ( ALT/SGPT) 28, Alkaline Phosphatase 101, Total Protein 8.3H, Albumin 3.8, Globulin 4.5, Albumin/Globulin Ratio 0.8L, Lipase 134 11/10/19 13:00: Lactic Acid Level 1.10 Height (Feet): 5 Height (Inches): 1.00 Weight (Pounds): 99 General Appearance: no apparent distress EENT: normal ENT inspection Neck: supple Cardiovascular: normal rate Respiratory/Chest: decreased breath sounds Abdomen: normal bowel sounds, non tender, soft Extremities: non-tender Sedrick Landaverde MD Nov 10, 2019 15:21
[2019-11-10 15:42] LABS: BASOPHILS % (AUTO) 0.8 % (0.0-2.0); EOSINOPHILS % (AUTO) 0.2 % (0.0-3.0); HEMOGLOBIN 12.3 G/DL (14.2-18.0); LYMPHOCYTES % (AUTO) 10.2 % (20.0-45.0); MEAN CORPUSCULAR VOLUME 101 FL (80-99); MONOCYTES % (AUTO) 4.3 % (1.0-10.0); NEUTROPHILS % (AUTO) 84.5 % (45.0-75.0); PLATELET COUNT 216 K/UL (150-450); RED BLOOD COUNT 3.76 M/UL (4.70-6.10); RED CELL DISTRIBUTION WIDTH 12.7 % (11.6-14.8); WHITE BLOOD COUNT 9.1 K/UL (4.8-10.8)
[2019-11-10 15:56] VITALS: BP 154/80
[2019-11-10 16:00] VITALS: BP 95/53
[2019-11-10] MEDS ORDERED: Polyethylene Glycol 238gm bottle ORAL SCH (16:00)
[2019-11-10] MEDS: D5 1/2NS w/KCl 20mEq 1,000 ML IV SCH (16:16)
[2019-11-10 20:00] VITALS: BP 103/52
[2019-11-10 23:28] LABS: BASOPHILS % (AUTO) 0.8 % (0.0-2.0); EOSINOPHILS % (AUTO) 0.5 % (0.0-3.0); HEMATOCRIT 37.6 % (42.0-52.0); HEMOGLOBIN 12.5 G/DL (14.2-18.0); LYMPHOCYTES % (AUTO) 14.5 % (20.0-45.0); MEAN CORPUSCULAR VOLUME 100 FL (80-99); MONOCYTES % (AUTO) 5.8 % (1.0-10.0); NEUTROPHILS % (AUTO) 78.3 % (45.0-75.0); PLATELET COUNT 209 K/UL (150-450); RED BLOOD COUNT 3.77 M/UL (4.70-6.10); RED CELL DISTRIBUTION WIDTH 12.2 % (11.6-14.8)
[2019-11-11] VITALS: BP 109/80
[2019-11-11 04:00] VITALS: BP 107/63
[2019-11-11] MEDS: D5 1/2NS w/KCl 20mEq 1,000 ML IV SCH (05:20)
[2019-11-11 08:00] VITALS: BP 95/55
[2019-11-11 08:08] LABS: BASOPHILS % (AUTO) 0.9 % (0.0-2.0); EOSINOPHILS % (AUTO) 0.7 % (0.0-3.0); HEMATOCRIT 40.1 % (42.0-52.0); HEMOGLOBIN 13.2 G/DL (14.2-18.0); MEAN CORPUSCULAR VOLUME 101 FL (80-99); MONOCYTES % (AUTO) 7.4 % (1.0-10.0); PLATELET COUNT 220 K/UL (150-450); RED BLOOD COUNT 3.97 M/UL (4.70-6.10); RED CELL DISTRIBUTION WIDTH 12.3 % (11.6-14.8); WHITE BLOOD COUNT 7.3 K/UL (4.8-10.8)
[2019-11-11 08:16] LABS: ANION GAP 4 mmol/L (5-15); BLOOD UREA NITROGEN 11 mg/dL (7-18); CALCIUM 8.5 MG/DL (8.5-10.1); CARBON DIOXIDE 30 MMOL/L (21-32); CHLORIDE 107 MMOL/L (98-107); CREATININE 0.9 MG/DL (0.55-1.30); SODIUM 141 MMOL/L (136-145)
[2019-11-11] MEDS ORDERED: Vitamin D 1000 IU Tab ORAL SCH (09:00)
--- NOTE | 2019-11-11 09:15 | History and Physical Report ---
DATE OF ADMISSION: 11/10/2019 CHIEF COMPLAINT: GI bleed. HISTORY OF PRESENT ILLNESS: The patient is a 54-year-old male with a history of developmental delay, who was brought in with complaints of bright red blood per rectum. The patient is unable provide any history, but according to the staff at his assisted living, he had several episodes of bright red blood per rectum. On evaluation in the emergency room, the patient's vital signs were stable. His hemoglobin was 15. In light of the GI bleed, he is now admitted for further evaluation and care. PAST MEDICAL HISTORY: As above. PAST SURGICAL HISTORY: Unknown. CURRENT MEDICATIONS: Reconciled and reviewed. ALLERGIES: None. FAMILY HISTORY: None. SOCIAL HISTORY: There is no known history of tobacco, ethanol, or drugs. REVIEW OF SYSTEMS: From the patient is unobtainable. PHYSICAL EXAMINATION: VITAL SIGNS: Temperature 98 degrees, pulse 68, respirations 17, blood pressure 107/63. GENERAL: The patient is well developed, in no apparent distress. HEART: Regular rate and rhythm. LUNGS: Clear. ABDOMEN: Soft, nontender, nondistended. EXTREMITIES: No clubbing, cyanosis, or edema. LABORATORY DATA: Hemoglobin was initially 15, now dropped down to 12.3. ASSESSMENT: This is a 54-year-old male with a history of developmental delay, admitted with complaints of GI bleed. PROBLEM LIST: GI bleed. PLAN: 1. IV proton pump inhibitor. 2. NPO. 3. IV fluids. 4. GI consultation for endoscopy. 5. The patient is stable for endoscopy from medical standpoint. Rafael Almonte M.D. DR: LYN JOB#: [id number] CC:
--- NOTE | 2019-11-11 09:21 | Pre-Procedure Note/Attestation ---
Pre-Procedure Note/Attestation Complete Prior to Procedure Planned Procedure: not applicable Procedure Narrative: esophagogastroduodenoscopy and colonoscopy Indications for Procedure Pre-Operative Diagnosis: GIB Attestation I attest that I discussed the nature of the procedure; its benefits; risks and complications; and alternatives (and the risks and benefits of such alternatives ), prior to the procedure, with the patient (or the patient's legal public relations representative). I attest that, if there was a reasonable possibility of needing a blood transfusion, the patient (or the patient's legal public relations representative) was given the [facility] standardized written summary, pursuant to the Alberto Fausto Blood Safety Act ([place] Health and Safety Code # 1645, as amended). I attest that I re-evaluated the patient just prior to the surgery and that there has been no change in the patient's H&P, except as documented below: Sedrick Landaverde MD Nov 11, 2019 09:21
--- NOTE | 2019-11-11 11:36 | Diagnostic Imaging Report ---
Indication: Bilateral leg pain Technique: Grayscale and duplex images of the bilateral lower extremity veins Comparison: None Findings: Bilaterally, grayscale and duplex images demonstrate no evidence of intraluminal thrombus. Normal phasic Doppler waveforms, demonstrating normal augmentation response and no evidence of valvular insufficiency. Greater saphenous vein(s) and tibial veins are patent. Normal compressibility. Impression: Negative for evidence of lower extremity deep venous thrombosis bilaterally
--- NOTE | 2019-11-11 11:54 | General Progress Note ---
Assessment/Plan Problem List: (1) GI bleed ICD Codes: K92.2 - Gastrointestinal hemorrhage, unspecified SNOMED: [id number] Assessment/Plan: GIB EGD and colonoscopy was canceled today due to lack of consent and stable H&H will cont try to reach DPOA Subjective Allergies: Coded Allergies: No Known Allergies (Unverified , 10/23/17) Objective Last 24 Hour Vital Signs Date Time Temp Pulse Resp B/P (MAP) Pulse Ox O2 Delivery O2 Flow Rate FiO2 11/11/19 08:00 96.8 65 18 95/55 (68) 96 11/11/19 07:31 73 11/11/19 04:00 75 11/11/19 04:00 96.8 68 17 107/63 (78) 98 11/11/19 00:00 97.7 71 17 109/80 (90) 98 11/11/19 00:00 63 11/10/19 21:00 Room Air 11/10/19 20:00 98.0 73 20 103/52 (69) 98 11/10/19 20:00 68 11/10/19 16:00 97.7 80 20 95/53 (67) 95 11/10/19 16:00 70 11/10/19 14:52 Room Air 11/10/19 14:05 98.8 20 146/83 97 Room Air 11/10/19 14:00 97.5 67 18 97/64 (75) 97 11/10/19 13:57 95 20 Room Air 11/10/19 13:47 98.8 95 20 146/83 97 Room Air 11/10/19 13:00 98.8 20 150/85 97 Room Air Intake and Output 11/10/19 11/11/19 19:00 07:00 Intake Total 420 ml 600 ml Balance 420 ml 600 ml Intake Oral 270 ml 600 ml IV Total 150 ml # Voids 1 2 # Bowel Movements 4 Laboratory Tests 11/10/19 13:00: Lactic Acid Level 1.10 11/10/19 15:25: White Blood Count 9.1, Red Blood Count 3.76L, Hemoglobin 12.3L, Hematocrit 38.0L , Mean Corpuscular Volume 101H, Mean Corpuscular Hemoglobin 32.7H, Mean Corpuscular Hemoglobin Concent 32.3, Red Cell Distribution Width 12.7, Platelet Count 216, Mean Platelet Volume 6.4L, Neutrophils (%) (Auto) 84.5H, Lymphocytes (%) (Auto) 10.2L, Monocytes (%) (Auto) 4.3, Eosinophils (%) (Auto) 0.2, Basophils (%) (Auto) 0.8 11/10/19 23:00: White Blood Count 8.0, Red Blood Count 3.77L, Hemoglobin 12.5L, Hematocrit 37.6L , Mean Corpuscular Volume 100H, Mean Corpuscular Hemoglobin 33.1H, Mean Corpuscular Hemoglobin Concent 33.1, Red Cell Distribution Width 12.2, Platelet Count 209, Mean Platelet Volume 6.9, Neutrophils (%) (Auto) 78.3H, Lymphocytes ( %) (Auto) 14.5L, Monocytes (%) (Auto) 5.8, Eosinophils (%) (Auto) 0.5, Basophils (%) (Auto) 0.8 11/11/19 07:40: White Blood Count 7.3, Red Blood Count 3.97L, Hemoglobin 13.2L, Hematocrit 40.1L , Mean Corpuscular Volume 101H, Mean Corpuscular Hemoglobin 33.2H, Mean Corpuscular Hemoglobin Concent 32.8, Red Cell Distribution Width 12.3, Platelet Count 220, Mean Platelet Volume 6.8, Neutrophils (%) (Auto) 70.0, Lymphocytes (% ) (Auto) 21.0, Monocytes (%) (Auto) 7.4, Eosinophils (%) (Auto) 0.7, Basophils ( %) (Auto) 0.9, Sodium Level 141, Potassium Level 4.0, Chloride Level 107, Carbon Dioxide Level 30, Anion Gap 4L, Blood Urea Nitrogen 11, Creatinine 0.9, Estimat Glomerular Filtration Rate > 60, Glucose Level 94, Calcium Level 8.5 Height (Feet): 5 Height (Inches): 1.00 Weight (Pounds): 85 General Appearance: alert EENT: normal ENT inspection Neck: supple Cardiovascular: normal rate Respiratory/Chest: decreased breath sounds Abdomen: normal bowel sounds, non tender, soft Extremities: non-tender Sedrick Landaverde MD Nov 11, 2019 11:54
[2019-11-11 12:00] VITALS: BP 105/55
[2019-11-11 16:00] VITALS: BP 119/69
--- NOTE | 2019-11-12 13:30 | Discharge Summary ---
Discharge Summary Discharge Summary _ DATE OF ADMISSION: 11/10/2019 DATE OF DISCHARGE: 11/11/2019 DISCHARGED BY: Dr. Almonte REASON FOR ADMISSION: 54 years old male, with past medical history of Down syndrome, presented from [facility] due to episode of bright red blood per rectum. P Caregiver reported 1 episode of bloody bowel movement. Patient did not appear to be in any pain. Caregiver stated that he had history of bleeding from the rectum previously. Upon evaluation patient was slightly tachycardic, otherwise vital signs were stable. Laboratory work-up revealed leukocytosis stable hemoglobin, hematocrit, and platelet counts. Stable electrolytes and renal parameters. Glucose 102. Lactic acid 2.2. Stable LFT and lipase. Chest x-ray demonstrated no acute cardiopulmonary pathology. Stool for occult blood was positive . In emergency department patient received 2 L of fluids, one dose of empiric antibiotic. Patient also started on Protonix drip and subsequently admitted to telemetry floor for further management. CONSULTANTS: GI specialist Dr. Landaverde [facility] COURSE: Patient admitted to telemetry floor. Patient initially was kept n.p.o. on IV fluids Plan was to proceed with upper endoscopy the next day. However EGD was canceled due to lack of the consent ( unable to reach DPOA) as well as the stable hemoglobin and hematocrit. Per GI specialist, if bleeding recurs, can repeat upper endoscopy as outpatient. However plans needs to be made to contact DPOA to get consent ahead of time. Hemoglobin and hematocrit remain stable and prior to discharge hemoglobin 13.2, hematocrit 40.1. Bowel regimen instituted. Supportive care provided. Blood cultures were negative. Rapid COVID-19 done in ED was negative. Patient clinically stabilized and was ready for discharge . Due to rapid and unexpected improvement in patient condition, patient was discharged in 1 day. FINAL DIAGNOSES: GI bleeding History of developmental delay DISCHARGE MEDICATIONS: See Medication Reconciliation list. DISCHARGE INSTRUCTIONS: Patient was discharged to assisted living. Patient to follow-up with a primary care provider in 1 week. I have been assigned to dictate discharge summary for this account. I was not involved in the patient's management. Gwen Aaron NP Nov 12, 2019 13:30
== END 2019-11-11 18:41 | disposition home or self-care (01) | DRG 253 ==
LOC: EDBD 11:08 → EDBEDREQ 11:43 → EMR 11:53 → 2E 12:37 → OBSVTOIN 12:37 → EDBEDREQ 13:20
DX: K92.2 Gastrointestinal hemorrhage, unspecified (principal); Q90.9 Down syndrome, unspecified; F79 Unspecified intellectual disabilities
CPT/HCPCS: 36415; 71045; 80048; 80053; 83605; 83690; 85025; 85610; 85730; 86850; 86900; 86901; 87040; 87081; 93005; 93970; 96365; 96366; 96368; 96375; 99291; J7030; U0002